=== PATIENT | female | born 1950 | race Caucasian/White ===

== ENCOUNTER 2025-01-10 13:24 | Outpatient (AMB) | payer MEDICARE, OTHER, SELFPAY ==
--- NOTE | 2025-01-10 13:26 | A.OFFVIS_ITS ---
Vital Signs 01/10/25 13:33 Height 5 ft Weight 210 lb BMI 41.0 BP 150/70 H Blood Pressure Location Rt brachial Position Sitting Pulse 63 Pulse Source Pulse Oximeter Pulse Oximetry (%) 92 Oxygen Delivery Method Room Air Intake Visit Reasons: Follow up Intake Note: Patient presents follow up. Last seen PNS Salesforce Administrator Required: No Accompanied by: Self / Same As Patient Medication List - Last Reconciled 01/10/25 by DESTINI Garcia allopurinol 100 mg PO DAILY amlodipine 10 mg PO DAILY cyclobenzaprine 10 mg PO BEDTIME gabapentin 300 mg PO BID memantine 5 mg PO BID 30 days omeprazole 20 mg PO DAILY pravastatin 20 mg PO BEDTIME HPI Comments Details: Right-handed 74-yr-old female presents to [facility] care for cognitive impairment. Patient was last seen in 2020. She states she had a fall last year, going down her stairs- states her neuropathy causes her to not feel her legs at times so she fell. The fall caused an internal hemorrhage and rectal bleed. She was admitted to [facility] x's 1 week. She did have a colonoscopy in Sep 2024- states results were reassuring. Review of labs through [facility] showed anemia and chronic kidney disease c/w CKD stage 4. She is followed by Nephrology. Recent bilateral lower extremity arterial vascular study shows impaired arterial blood flow. Patient states she is supposed to have follow-up ankle imaging and referral for vascular consult. Notes since the fall, is more prone to her feet turning out and having more difficulty lifting her feet up. She has been using a walker since, to help with her balance. Her balance is worse closes her eyes. She states she does have restlessness when inactive and creepy crawly sensation at rest She states that Dr. Casper used to manage her neuropathy. He had previously done a BLE nerve conduction study- order this was years ago and she does not recall the results. She asked if we also treat neuropathy symptoms. Pt reports her memory seems a bit worse. She may forget where she just put something or what she just doing. She also has some word finding difficulties- which sometimes comes to her later. She is Ind w/ paying her bills. Her does the cooking- since the fall last year. Denies repeating herself, leaving the stove on. She continues on memantine 5mg qd- states she tried to increase to 5mg bid but caused nausea so reduced the dose back to 5mg qd. [facility] Medical History (Updated 01/10/25 @ 17:30 by DESTINI Garcia) History of sigmoidoscopy Acute drug-induced gout of right foot Surgical History (Updated 01/10/25 @ 17:30 by DESTINI Garcia) History of colonoscopy History of hysterectomy History of appendectomy Physical Exam Vital Signs: Last Vital Signs Pulse 63 01/10/25 13:33 BP 150/70 H 01/10/25 13:33 Pulse Ox 92 01/10/25 13:33 Oxygen Delivery Method Room Air 01/10/25 13:33 BMI result Body Mass Index 41.0 Const General: cooperative and no acute distress Resp Effort & Inspection: normal respiratory effort and able to speak in complete sentences Neuro Other: Alert and oriented x3- occasional short-term memory lapse. Bilateral lower extremity decreased light touch sensation. Bilateral lower extremity hip flexor muscle strength 5/5 Stand slowly, very short tentative steps without walker. Gait is improved upon using walker. General: CN's II-XI intact bilaterally and deep tendon reflexes 2+ bilaterally Gait exam (Neuro): Normal gait present Psych Appearance: grossly normal Mental Status: mental status grossly normal Speech and movement: Normal speech and movement present Affect: normal affect Attitude: cooperative Thought process: Normal thought process present Results Reviewed Results Reviewed: RESULT: MRI Lumbar Spine W/O Contrast [facility] VISIT NUMBER :[id number] Patient Name: Lincoln Coffey Date of : 1950 Date of Exam: 09-28-2024 Referring Physician: Serena Barrera [address] [address] Exam: MR Lumbar Spine (C-) CPT 32007 Room Description: [facility] 1.5 MRI of the lumbar spine without contrast. HISTORY: Low back pain. Bilateral leg numbness and pain. COMPARISON: 06/07/2023. FINDINGS: This study assumes 5 nonrib-bearing lumbar-type vertebral bodies. The conus medullaris has a normal caliber and signal intensities. It terminates at L1 level. The alignment of lumbar spine is normal. No fracture or subluxation. An incidental hemangioma is seen in the right-sided T12 vertebral body. The bone marrow signals are within normal limits. 8mm hypointense T1 and T2 signal within the sacrum at S1 level is again seen, unchanged. This could represent a bone island as described previously. Mild marginal osteophytes are seen diffusely. Disc desiccation and mild degenerative endplate changes noted at L2-L3 to L5-S1 levels. L3-L4 level has mild disc space narrowing. The paraspinal muscles are within normal limits. T11-T12 through L1-L2 levels have minimal disc bulges. No disc herniation, stenosis or neural foramen narrowing. L2-L3 level has a mild concentric disc bulge with a superimposed small broad-based central disc protrusion. Mild to moderate stenosis. Bilateral ligamentum flavum are mildly hypertrophic. The facet joints are degenerative. Mild bilateral neural foramen narrowing. L3-L4 level has a concentric disc bulge extending to subarticular regions bilaterally, more toward the left. Mild stenosis. Bilateral ligamentum flavum are mildly hypertrophic. There is mild degenerative facet arthropathy bilaterally. Mild to moderate right and moderate left neuroforaminal narrowing. L4-L5 level has a mild concentric disc bulge causing minimal stenosis with the disc abutting bilateral L5 nerve roots. The ligamentum flavum are mildly hypertrophic. The facet joints are degenerative, worse on left. Trace facet e ffusions bilaterally more on left. Mild bilateral neural foramen narrowing. L5- S1 level has a mild disc bulge. No stenosis or nerve root compression. The ligamentum flavum are mildly hypertrophic. The facet joints are mildly degenerative. No neural foramen narrowing. IMPRESSION: Multiple levels of lumbar spondylosis as described above. The findings are similar to prior study. Assessment & Plan Assessment & Plan (1) Cognitive changes: Code(s): R41.89 - Other symptoms and signs involving cognitive functions and awareness Category: Medical (2) Anemia: Code(s): D64.9 - Anemia, unspecified Category: Medical (3) Bilateral lower extremity edema: Code(s): R60.0 - Localized edema Category: Medical (4) Lumbar spondylosis: Comment: With multilevel trgo-[id number] central canal stenosis and qjre-tj-vcvxotqe neural foraminal narrowing. Code(s): M47.816 - Spondylosis without myelopathy or radiculopathy, lumbar region Category: Medical (5) Polyneuropathy: Code(s): G62.9 - Polyneuropathy, unspecified Category: Medical Plan Adjust Memantine IR 5mg daily to Memantine ER 7mg daily- if well tolerated after 1-2 months, we will increase to 14 mg ER daily. Check labs for common etiologies of cognitive difficulties and neuropathy symptoms. Concur with vascular workup/consult. Continue to use walker. Patient is not interested in retrying PT at this time. Future considerations: Follow-up BLE EMG/NCS, brain MRI, revisiting PT. Will follow-up upon review of above and patient to follow-up in clinic in 6 months or sooner prn. Orders: Orders Vitamin B6 Today D64.9 - Anemia, unspecified, E11.9 - Type 2 diabetes mellitus without complications, E78.5 - Hyperlipidemia, unspecified, G62.9 - Polyneuropathy, unspecified, I10 - Essential (primary) hypertension, N18.4 - Chronic kidney disease, stage 4 (severe) Methylmalonic Acid Today D64.9 - Anemia, unspecified, E11.9 - Type 2 diabetes m ellitus without complications, E78.5 - Hyperlipidemia, unspecified, G62.9 - Polyneuropathy, unspecified, I10 - Essential (primary) hypertension, N18.4 - Chronic kidney disease, stage 4 (severe) Complete Blood Count Auto Diff Today D64.9 - Anemia, unspecified, E11.9 - Type 2 diabetes mellitus without complications, E78.5 - Hyperlipidemia, unspecified, G62.9 - Polyneuropathy, unspecified, I10 - Essential (primary) hypertension, N18.4 - Chronic kidney disease, stage 4 (severe) TSH reflex Free T4 Today D64.9 - Anemia, unspecified, E11.9 - Type 2 diabetes mellitus without complications, E78.5 - Hyperlipidemia, unspecified, G62.9 - Polyneuropathy, unspecified, I10 - Essential (primary) hypertension, N18.4 - Chronic kidney disease, stage 4 (severe) LAURA Reflex Titer and Pattern Today D64.9 - Anemia, unspecified, E11.9 - Type 2 diabetes mellitus without complications, E78.5 - Hyperlipidemia, unspecified, G62.9 - Polyneuropathy, unspecified, I10 - Essential (primary) hypertension, N18.4 - Chronic kidney disease, stage 4 (severe) Erythrocyte Sedimentation Rate Today D64.9 - Anemia, unspecified, E11.9 - Type 2 diabetes mellitus without complications, E78.5 - Hyperlipidemia, unspecified, G62.9 - Polyneuropathy, unspecified, I10 - Essential (primary) hypertension, N18.4 - Chronic kidney disease, stage 4 (severe) Ferritin Today D64.9 - Anemia, unspecified, E11.9 - Type 2 diabetes mellitus without complications, E78.5 - Hyperlipidemia, unspecified, G62.9 - Polyneuropathy, unspecified, I10 - Essential (primary) hypertension, N18.4 - Chronic kidney disease, stage 4 (severe) Homocysteine Today D64.9 - Anemia, unspecified, E11.9 - Type 2 diabetes mellitus without complications, E78.5 - Hyperlipidemia, unspecified, G62.9 - Polyneuropathy, unspecified, I10 - Essential (primary) hypertension, N18.4 - Chronic kidney disease, stage 4 (severe) Vitamin B12 and Folate Today D64.9 - Anemia, unspecified, E11.9 - Type 2 diabetes mellitus without complications, E78.5 - Hyperlipidemia, unspecified, G62.9 - Polyneuropathy, unspecified, I10 - Essential (primary) hypertension, N18.4 - Chronic kidney disease, stage 4 (severe) Folate Today D64.9 - Anemia, unspecified, E11.9 - Type 2 diabetes mellitus without complications, E78.5 - Hyperlipidemia, unspecified, G62.9 - Polyneuropathy, unspecified, I10 - Essential (primary) hypertension, N18.4 - Chronic kidney disease, stage 4 (severe) Vitamin B1 Today D64.9 - Anemia, unspecified, E11.9 - Type 2 diabetes mellitus without complications, E78.5 - Hyperlipidemia, unspecified, G62.9 - Polyneuropathy, unspecified, I10 - Essential (primary) hypertension, N18.4 - Chronic kidney disease, stage 4 (severe) Comprehensive Met. Panel Today D64.9 - Anemia, unspecified, E11.9 - Type 2 di abetes mellitus without complications, E78.5 - Hyperlipidemia, unspecified, G62.9 - Polyneuropathy, unspecified, I10 - Essential (primary) hypertension, N18.4 - Chronic kidney disease, stage 4 (severe) Vitamin D 25-OH (D2 and D3) Today D64.9 - Anemia, unspecified, E11.9 - Type 2 diabetes mellitus without complications, E78.5 - Hyperlipidemia, unspecified, G62.9 - Polyneuropathy, unspecified, I10 - Essential (primary) hypertension, N18.4 - Chronic kidney disease, stage 4 (severe) Lyme IgG/IgM w/reflex to WB Today D64.9 - Anemia, unspecified, E11.9 - Type 2 diabetes mellitus without complications, E78.5 - Hyperlipidemia, unspecified, G62.9 - Polyneuropathy, unspecified, I10 - Essential (primary) hypertension, N18.4 - Chronic kidney disease, stage 4 (severe) Rheumatoid Factor Today D64.9 - Anemia, unspecified, E11.9 - Type 2 diabetes mellitus without complications, E78.5 - Hyperlipidemia, unspecified, G62.9 - Polyneuropathy, unspecified, I10 - Essential (primary) hypertension, N18.4 - Chronic kidney disease, stage 4 (severe) Creatine Kinase Total Today D64.9 - Anemia, unspecified, E11.9 - Type 2 diabetes mellitus without complications, E78.5 - Hyperlipidemia, unspecified, G62.9 - Polyneuropathy, unspecified, I10 - Essential (primary) hypertension, N18.4 - Chronic kidney disease, stage 4 (severe) IRON PROFILE Today D64.9 - Anemia, unspecified, E11.9 - Type 2 diabetes mellitus without complications, E78.5 - Hyperlipidemia, unspecified, G62.9 - Po lyneuropathy, unspecified, I10 - Essential (primary) hypertension, N18.4 - Chronic kidney disease, stage 4 (severe) Medications: New memantine 7 mg PO DAILY 30 ea 0RF 30 days Coding Level of Care Code New Pt Level 4 (44290) Diagnoses Cognitive changes R41.89 Anemia D64.9 Bilateral lower extremity edema R60.0 Lumbar spondylosis M47.816 Polyneuropathy G62.9
[2025-01-10 13:33] VITALS: BP 150/70; PULSE 63; O2SAT 92; BMI 41.0
--- OUTSIDE RECORDS SUMMARY | 2025-01-10 15:45 | XMS_ITS | Encounter Summary ---
Author Organization [facility] Address [address] [place] [address] Care Team Providers Care Sales And Retail Management Recruiter Name Role Phone Betzy Duarte MD Primary Care Provider [phone] Edouard Mccracken MD Primary Care Provider Unavailabl e Edouard Mccracken MD Unavailable Unavailable Edouard Mccracken MD Unavailable Unavailable Reason for Visit * Reason Comments E-prescribe Rx Request Omeprazole Encounter Details Date Type Department Care Team Description 10/06/2019 Refill Internal Medicine - [address], [address] [place] [address] Betzy Duarte MD [address] [place] [phone] E-prescribe Rx Request (Omeprazole) Social History Tobacco Use Types Packs/Day Years Used Date Smoking Tobacco: Former Smokeless Tobacco: Never Comments:quit 2004 Alcohol Use Standard Drinks/Week Comments Yes 0 (1 standard drink = 0.6 oz pur e alcohol) occas Sex Assigned at Date Recorded Not on file documented as of this encounter Miscellaneous Notes * Telephone Encounter - Yumiko Lay - 10/07/2019 9:32 AM EST Patient would like script to be: E-PRESCRIBED/FAXED TO PHARMACY WHEN WAS THE PATIENT'S LAST APPOINTMENT IN ADULT MEDICINE? 03/05/2019 WHEN WAS THE LAST TIME THE PATIENT SAW THEIR PCP? Same as above Does patient have an upcoming appointment? Yes 10/25/2019 (THE MEDICATION REQUESTED IS ON THE MED LIST ABOVE) All of the medications requested were on the CURRENT MEDS list Did you check the Pharmacy information above?: YES Patient wants: 30 -day supply Is this a mail order prescription request ? NO If the refill is from a FAXED refill request what is the RX # listed on the fax? N/A Patients current insurance carrier is: Payor: [employer] / Plan: [employer] / Product Type: MEDICARE [id number] documented in this encounter Plan of Treatment Not on file documented as of this encounter Visit Diagnoses Not on filedocumented in this encounter Care Teams Sales And Retail Management Recruiter Relationship Specialty Start Date End Date Betzy Duarte MD PCP - General Internal Medicine 02/22/19 10/13/21 Edouard Mccracken MD PCP - General 10/14/21 11/14/21 Edouard Mccracken MD 12/11/15 10/13/21 Edouard Mccracken MD 11/15/21 documented as of this encounter
--- OUTSIDE RECORDS SUMMARY | 2025-01-10 15:45 | XMS_ITS | Encounter Summary ---
Author Organization [facility] Address [address] [place] [address] Care Team Providers Care Licensed Master Social Worker Name Role Phone Betzy Duarte MD Primary Care Provider [phone]- [phone] Edouard Mccracken MD Primary Care Provider Unavailabl e Edouard Mccracken MD Unavailable Unavailable Edouard Mccracken MD Unavailable Unavailable Encounter Details Date Type Department Care Team Description 03/07/2019 Writer Producer Report Medical Records [address] [place] [id number] Gabe Woods MD Social History Tobacco Use Types Packs/Day Years Used Date Smoking Tobacco: Former Smokeless Tobacco: Never Comments:quit 2004 Alcohol Use Standard Drinks/Week Comments Yes 0 (1 standard drink = 0.6 oz pur e alcohol) occas Sex Assigned at Date Recorded Not on file documented as of this encounter Plan of Treatment Not on file documented as of this encounter Visit Diagnoses Not on filedocumented in this encounter Care Teams Licensed Master Social Worker Relationship Specialty Start Date End Date Betzy Duarte MD PCP - General Internal Medicine 02/22/19 10/13/21 Edouard Mccracken MD PCP - General 10/14/21 11/14/21 Edouard Mccracken MD 12/11/15 10/13/21 Edouard Mccracken MD 11/15/21 documented as of this encounter
--- OUTSIDE RECORDS SUMMARY | 2025-01-10 15:45 | XMS_ITS | Encounter Summary ---
Author Organization [facility] Address [address] [place] [address] Care Team Providers Care Windshield Technician Name Role Phone Constanza Reyes MD Primary Care Provider Unava Betzy Rose MD Primary Care Provider [phone]- [phone] Edouard Mccracken MD Primary Care Provider Unavailabl e Edouard Mccracken MD Unavailable Unavailable Edouard Mccracken MD Unavailable Unavailable Reason for Visit * Reason Comments E-prescribe Rx Request Encounter Details Date Type Department Care Team Description 10/15/2018 Refill Internal Medicine - [address], [address] [place] [address] Constanza Reyes MD E-prescribe Rx Request Social History Tobacco Use Types Packs/Day Years Used Date Smoking Tobacco: Former Smokeless Tobacco: Never Comments:quit 2004 Alcohol Use Standard Drinks/Week Comments Yes 0 (1 standard drink = 0.6 oz pur e alcohol) occas Sex Assigned at Date Recorded Not on file documented as of this encounter Miscellaneous Notes * Telephone Encounter - Yolanda Jo M.A. - 10/15/2018 11:28 AM EST Last seen 08/10/18 documented in this encounter Plan of Treatment Not on file documented as of this encounter Visit Diagnoses Not on filedocumented in this encounter Care Teams Windshield Technician Relationship Specialty Start Date End Date Constanza Reyes MD PCP - General Internal Medicine 08/25/18 02/21/19 Betzy Duarte MD PCP - General Internal Medicine 02/22/19 10/13/21 Edouard Mccracken MD PCP - General 10/14/21 11/14/21 Edouard Mccracken MD 12/11/15 10/13/21 Edouard Mccracken MD 11/15/21 documented as of this encounter
--- OUTSIDE RECORDS SUMMARY | 2025-01-10 15:45 | XMS_ITS | Encounter Summary ---
Author Organization [employer] [facility] Address [address] [place] [address] Care Team Providers Care Safety Spec Name Role Phone Betzy Duarte MD Primary Care Provider [phone]- [phone] Edouard Mccracken MD Primary Care Provider Unavailabl e Edouard Mccracken MD Unavailable Unavailable Edouard Mccracken MD Unavailable Unavailable Encounter Details Date Type Department Care Team Description 02/23/2019 [facility] [address] [place] [id number] Kayla Steele PA-C Social History Tobacco Use Types Packs/Day Years [...] on filedocumented in this encounter Care Teams Safety Spec Relationship Specialty Start Date End Date Betzy Duarte MD PCP - General Internal Medicine 02/22/19 10/13/21 Edouard Mccracken MD PCP - General 10/14/21 11/14/21 Edouard Mccracken MD 12/11/15 10/13/21 Edouard Mccracken MD 11/15/21 documented as of this encounter
--- OUTSIDE RECORDS SUMMARY | 2025-01-10 15:45 | XMS_ITS | Clinical Summary ---
Author Organization [facility] Address [address] [place] [address] Care Team Providers Care Physical Therapy Manager Name Role Phone Constanza Reyes MD Primary Care Provide r Allergies Active Allergy Reactions Criticality Noted Date Comments Aspirin 02/19/2018 Sulfamethoxazole-Trimethoprim Nausea Only 02/19 Ibuprofen 02/19/2018 Nitrofurantoin Diarrhea 02/19/2018 Fosfomycin Tromethamine (Obsolete) 0 02/19/2018 Morphine 02/19/2018 Penicillins 02/19/2018 Social History Tobacco Use Types Packs/Day Years Used Date Smoking Tobacco: Never Assessed Sex and Gender Information Value Date Recorded Sex Assigned at Not on file Gender Identity Not on file Sexual Orientation Not on file Plan of Treatment Health Maintenance Due Date Last Done Comments Hepatitis C Screening 1950 COVID-19 Vaccine (#1) 06/28/1951 Depression Screening 1964 Preventative Health Evaluation 1970 DTap / Tdap / Td (1 - Tdap) 12/27/1971 Colon Cancer Screening (Colonoscopy) 1997 Breast Cancer Screening (Mammogram) 2002 Shingrix-Zoster Vaccine (1 of 2) 2002 Fall Risk Assessment 2017 Osteoporosis Screening (DEXA Scan) 2017 Pneumococcal Vaccine (1 of 1 - PCV) 2017 Influenza Vaccine (#1) 2024 RSV Adult > 60+ Yrs or Pregn ant (1 - 1-dose 75+ series) 12/27/2027 Hepatitis B Vaccines Aged Out No long er eligible based on patient's age to complete this topic RSV Ped < 20 months Aged Out No longe r eligible based on patient's age to complete this topic Care Teams Physical Therapy Manager Relationship Specialty Start Date End Date Constanza Reyes MD PCP - General Internal Medicine 02/19/18
--- OUTSIDE RECORDS SUMMARY | 2025-01-10 15:45 | XMS_ITS | Encounter Summary ---
Author Organization [facility] Address [address] [place] [address] Care Team Providers Care Drop Pit Worker Name Role Phone Betzy Duarte MD Primary Care Provider [phone]- [phone] Edouard Mccracken MD Primary Care Provider Unavailabl e Edouard Mccracken MD Unavailable Unavailable Edouard Mccracken MD Unavailable Unavailable Reason for Visit * Reason Comments E-prescribe Rx Request Encounter Details Date Type Department Care Team Description 09/13/2021 Refill Internal Medicine - [address], [address] [place] [address] Betzy Duarte MD [address] [place] [phone] E-prescribe Rx Request Social History Tobacco Use Types Packs/Day Years Used Date Smoking Tobacco: Former Smokeless Tobacco: Never Comments:quit 2004 Alcohol Use Standard Drinks/Week Comments Yes 0 (1 standard drink = 0.6 oz pur e alcohol) occas Sex Assigned at Date Recorded Not on file COVID-19 Exposure Response Date Recorded In the last month, have you been in contact with someone who was confirmed or suspected to have Coronavirus / COVID-19? No / Unsure 09/13/2021 12:44 PM EST documented as of this encounter Miscellaneous Notes * Telephone Encounter - Almita Griffith - 09/15/2021 8:49 AM EST BP Readings from Last 3 Encounters: 03/23/21 132/56 10/28/20 126/76 07/01/20 120/70 * Telephone Encounter - Merlin Michelle - 09/14/2021 4:41 PM EST [place] 03/23/21 Nov 09/22/21 90 documented in this encounter Plan of Treatment Not on file documented as of this encounter Visit Diagnoses Not on filedocumented in this encounter Care Teams Drop Pit Worker Relationship Specialty Start Date End Date Betzy Duarte MD PCP - General Internal Medicine 02/22/19 10/13/21 Edouard Mccracken MD PCP - General 10/14/21 11/14/21 Edouard Mccracken MD 12/11/15 10/13/21 Edouard Mccracken MD 11/15/21 documented as of this encounter
--- OUTSIDE RECORDS SUMMARY | 2025-01-10 15:45 | XMS_ITS | Encounter Summary ---
Author Organization [facility] Address [address] [place] [address] Care Team Providers Care Solution Design And Analysis Manager Name Role Phone Community, Pcp Primary Care Provider Constanza Turcios MD Primary Care Provider Unava ilBetzy Thornton MD Primary Care Provider [phone]- [phone] Edouard Mccracken MD Primary Care Provider UnavailEdouard Nick MD Unavailable Unavailable Edouard Mccracken MD Unavailable Unavailable Encounter Details Date Type Department Care Team Description 03/26/2018 Business Doc Medical Records [address] [place] [id number] Abstract, Provider Social History Tobacco Use Types Packs/Day Years [...] on filedocumented in this encounter Care Teams Solution Design And Analysis Manager Relationship Specialty Start Date End Date Community, Pcp PCP - General Internal Medicine 01/23/17 08/24/18 Constanza Reyes MD PCP - General Internal Medicine 08/25/18 02/21/19 Betzy Duarte MD PCP - General Internal Medicine 02/22/19 10/13/21 Edouard Mccracken MD PCP - General 10/14/21 11/14/21 Edouard Mccracken MD 12/11/15 10/13/21 Edouard Mccracken MD 11/15/21 documented as of this encounter
--- OUTSIDE RECORDS SUMMARY | 2025-01-10 15:45 | XMS_ITS | Encounter Summary ---
Author Organization [facility] Address [address] [place] [address] Care Team Providers Care Fruit Grader Name Role Phone Betzy Duarte MD Primary Care Provider +1- [phone] Edouard Mccracken MD Primary Care Provider Unavailabl e Edouard Mccracken MD Unavailable Unavailable Edouard Mccracken MD Unavailable Unavailable Reason for Visit * Reason Comments E-prescribe Rx Request Encounter Details Date Type Department Care Team Description 04/19/2021 Refill Internal Medicine - [address], [address] [place] [address] Betzy Duarte MD [address] [place] [phone] E-prescribe Rx Request Social History Tobacco [...] have Coronavirus / COVID-19? No / Unsure 04/20/2021 9:53 AM EDT documented as of this encounter Miscellaneous Notes * Telephone Encounter - Dana Almita Dilip - 04/20/2021 10:23 AM EDT BP Readings from Last 3 Encounters: 03/23/21 132/56 10/28/20 126/76 07/01/20 120/70 * Telephone Encounter - Latisha Hodges - 04/19/2021 8:54 AM EDT Aury 03/23/21 Nov 09/22/21 documented in this encounter Plan of Treatment Not on file documented as of this encounter Visit Diagnoses Not on filedocumented in this encounter Care Teams Fruit Grader Relationship Specialty Start Date End Date Betzy Duarte MD PCP - General Internal Medicine 02/22/19 10/13/21 Edouard Mccracken MD PCP - General 10/14/21 11/14/21 Edouard Mccracken MD 12/11/15 10/13/21 Edouard Mccracken MD 11/15/21 documented as of this encounter
--- OUTSIDE RECORDS SUMMARY | 2025-01-10 15:45 | XMS_ITS | Encounter Summary ---
Author Organization [facility] Address [address] [place] [address] Care Team Providers Care Sampling Theory Teacher Name Role Phone Betzy Duarte MD Primary Care Provider +1- [phone] Edouard Mccracken MD Primary Care Provider Unavailabl e Edouard Mccracken MD Unavailable Unavailable Edouard Mccracken MD Unavailable Unavailable Reason for Visit * Reason Onset Date Comments refill request 02/22/2019 Encounter Details Date Type Department Care Team Description 02/22/2019 Refill Internal Medicine - [address], [address] [place] [address] Betzy Duarte MD [address] [place] [phone] refill request Social History Tobacco Use Types Packs/Day Years Used Date Smoking Tobacco: Former Smokeless Tobacco: Never Comments:quit 2004 Alcohol Use Standard Drinks/Week Comments Yes 0 (1 standard drink = 0.6 oz pur e alcohol) occas Sex Assigned at Date Recorded Not on file documented as of this encounter Miscellaneous Notes * Telephone Encounter - Rose Daiflynnsagar - 02/22/2019 9:02 AM EDT Patient would like script to be: E-PRESCRIBED/FAXED TO PHARMACY WHEN WAS THE PATIENT'S LAST APPOINTMENT IN ADULT MEDICINE? 10/18/19 w/Dr Reyes WHEN WAS THE LAST TIME THE PATIENT SAW THEIR PCP? Same as above Does patient have an upcoming appointment? Yes 03/05/19 w/Dr Duarte (THE MEDICATION REQUESTED IS ON THE MED LIST ABOVE) All of the medications requested were on the CURRENT MEDS list Did you check the Pharmacy information above?: YES Patient wants: 90 -day supply Is this a mail order prescription request ? NO If the refill is from a FAXED refill request what is the RX # listed on the fax? N/A Patients current insurance carrier is: Payor: MEDICARE-[employer] / Plan: MEDICARE-[place] / Product Type: MEDICARE [id number] documented in this encounter Plan of Treatment Not on file documented as of this encounter Visit Diagnoses Not on filedocumented in this encounter Care Teams Sampling Theory Teacher Relationship Specialty Start Date End Date Betzy Duarte MD PCP - General Internal Medicine 02/22/19 10/13/21 Edouard Mccracken MD PCP - General 10/14/21 11/14/21 Edouard Mccracken MD 12/11/15 10/13/21 Edouard Mccracken MD 11/15/21 documented as of this encounter
--- OUTSIDE RECORDS SUMMARY | 2025-01-10 15:45 | XMS_ITS | Encounter Summary ---
Author Organization [facility] Address [address] [place] [address] Care Team Providers Care Technical Training Instructor Name Role Phone Betzy Duarte MD Primary Care Provider +1- [phone] Edouard Mccracken MD Primary Care Provider Unavailabl e Edouard Mccracken MD Unavailable Unavailable Edouard Mccracken MD Unavailable Unavailable Reason for Visit * Reason Comments E-prescribe Rx Request Encounter Details Date Type Department Care Team Description 09/05/2019 Refill Internal Medicine - [address], [address] [place] [address] Betzy Duarte MD [address] [place] [phone] E-prescribe Rx Request Social History Tobacco Use Types Packs/Day Years Used Date Smoking Tobacco: Former Smokeless Tobacco: Never Comments:quit 2004 Alcohol Use Standard Drinks/Week Comments Yes 0 (1 standard drink = 0.6 oz pur e alcohol) occas Sex Assigned at Date Recorded Not on file documented as of this encounter Miscellaneous Notes * Telephone Encounter - Lissette Thompson L.P.N. - 09/06/2019 2:23 PM EST Refill coumadin Last OV Dr Duarte 03/05/[address] Duarte 10/25/2019 Lab Results Component Value Date INR 2.86 09/02/2019 * Telephone Encounter - Margaux Vasquez - 09/05/2019 11:32 AM EST Patient would like script to be: E-PRESCRIBED/FAXED TO PHARMACY WHEN WAS THE PATIENT'S LAST APPOINTMENT IN ADULT MEDICINE? 03/05/19 WHEN WAS THE LAST TIME THE PATIENT SAW THEIR PCP? Same as above Does patient have an upcoming appointment? Yes 11/04/2019 (THE MEDICATION REQUESTED IS ON THE MED [...] N/A Patients current insurance carrier is: [place] / [place] / Product Type: MEDICARE [id number] documented in this encounter Plan of Treatment Not on file documented as of this encounter Visit Diagnoses Not on filedocumented in this encounter Care Teams Technical Training Instructor Relationship Specialty Start Date End Date Betzy Duarte MD PCP - General Internal Medicine 02/22/19 10/13/21 Edouard Mccracken MD PCP - General 10/14/21 11/14/21 Edouard Mccracken MD 12/11/15 10/13/21 Edouard Mccracken MD 11/15/21 documented as of this encounter
--- OUTSIDE RECORDS SUMMARY | 2025-01-10 15:45 | XMS_ITS | Encounter Summary ---
Author Organization [facility] Address [address] [place] [address] Care Team Providers Care Venture Capitalist Name Role Phone Betzy Duarte MD Primary Care Provider +1- [phone] Edouard Mccracken MD Primary Care Provider Unavailabl e Edouard Mccracken MD Unavailable Unavailable Edouard Mccracken MD Unavailable Unavailable Encounter Details Date Type Department Care Team Description 06/14/2021 Telephone [facility] [address] [facility] [address] [place] [address] Poonam Rae, PA-C [address] [facility] [address] [place] [address] Social History Tobacco Use Types Packs/Day Years [...] have Coronavirus / COVID-19? No / Unsure 06/17/2021 3:14 PM EDT documented as of this encounter Plan of Treatment Not on file documented as of this encounter Visit Diagnoses Not on filedocumented in this encounter Care Teams Venture Capitalist Relationship Specialty Start Date End Date Betzy Duarte MD PCP - General Internal Medicine 02/22/19 10/13/21 Edouard Mccracken MD PCP - General 10/14/21 11/14/21 Edouard Mccracken MD 12/11/15 10/13/21 Edouard Mccracken MD 11/15/21 documented as of this encounter
--- OUTSIDE RECORDS SUMMARY | 2025-01-10 15:45 | XMS_ITS | Encounter Summary ---
Author Organization [facility] Address [address] [facility] [address] [facility] [address] [place] [address] Phone Care Team Providers Care Terminal Press Operator Name Role Phone Rocio Lenz Primary Care Provider +1- [phone] Reason for Visit * Reason Comments Med Refill Encounter Details Date Type Department Care Team (Late st Contact Info) Description 12/31/2024 Refill [facility] [address] [place] [id number] Gabe Woods MD [address] [address] Social History Tobacco Use Types Packs/Day Years Used Date Smoking Tobacco: Former Smokeless Tobacco: Former Alcohol Use Standard Drinks/Week Comments Yes 0 (1 standard drink = 0.6 oz pure alcohol) Alcoholic Drinks/day: Occasional social drink Comments Unknown Sex and Gender Information Value Date Recorded Sex Assigned at Not on file Legal Sex Female 4:59 PM EST Gender Identity Not on file Sexual Orientation Not on file documented as of this encounter Plan of Treatment Upcoming Encounters Date Type Department Care Team (Late st Contact Info) Description 02/27/2025 9:20 AM EDT Office Visit [facility] [address] [address] Gabe Woods MD [address] [address] documented as of this encounter Visit Diagnoses Not on filedocumented in this encounter Care Teams Terminal Press Operator Relationship Specialty Start Date End Date Rocio Lenz [address] [facility] [place] PCP - General Internal Medicine 01/24/22 documented as of this encounter
--- OUTSIDE RECORDS SUMMARY | 2025-01-10 15:45 | XMS_ITS | Encounter Summary ---
Author Organization [facility] Address [address] [place] [address] Care Team Providers Care Licensing Analyst Name Role Phone Betzy Duarte MD Primary Care Provider Edouard Mccracken MD Primary Care Provider Unavailabl e Edouard Mccracken MD Unavailable Unavailable Edouard Mccracken MD Unavailable Unavailable Encounter Details Date Type Department Care Team Description 05/10/2019 Business Doc Medical Records [address] [place] [id number] Abstract, Provider Social History Tobacco Use Types [...] on filedocumented in this encounter Care Teams Licensing Analyst Relationship Specialty Start Date End Date Betzy Duarte MD PCP - General Internal Medicine 02/22/19 10/13/21 Edouard Mccracken MD PCP - General 10/14/21 11/14/21 Edouard Mccracken MD 12/11/15 10/13/21 Edouard Mccracken MD 11/15/21 documented as of this encounter
--- OUTSIDE RECORDS SUMMARY | 2025-01-10 15:45 | XMS_ITS | Encounter Summary ---
Author Organization [facility] Address [address] [place] [address] Care Team Providers Care Health Care Manager Name Role Phone Betzy Duarte MD Primary Care Provider +1- [phone] Edouard Mccracken MD Primary Care Provider Unavailabl e Edouard Mccracken MD Unavailable Unavailable Edouard Mccracken MD Unavailable Unavailable Reason for Visit * Reason Onset Date Comments Faxed Refill 04/15/2019 Omeprazole 20mg Encounter Details Date Type Department Care Team Description 04/15/2019 Refill Internal Medicine - [address], [address] [place] [address] Betzy Duarte MD [address] [place] [phone] Faxed Refill (Omeprazole 20mg) Social History Tobacco Use Types Packs/Day Years Used Date Smoking Tobacco: Former Smokeless Tobacco: Never Comments:quit 2004 Alcohol Use Standard Drinks/Week Comments Yes 0 (1 standard drink = 0.6 oz pur e alcohol) occas Sex Assigned at Date Recorded Not on file documented as of this encounter Miscellaneous Notes * Telephone Encounter - Darling Guzman - 04/15/2019 3:14 PM EDT Patient would like script to be: E-PRESCRIBED/FAXED TO PHARMACY WHEN WAS THE PATIENT'S LAST APPOINTMENT IN ADULT MEDICINE? 03/05/2019 WHEN WAS THE LAST TIME THE PATIENT SAW THEIR PCP? Same as above Does patient have an upcoming appointment? Yes 07/16/2019 (THE MEDICATION REQUESTED IS ON THE MED LIST ABOVE) All of the medications requested were on the CURRENT MEDS list Did you check the Pharmacy information above?: YES Patient wants: 90 -day supply Is this a mail order prescription request ? NO If the refill is from a FAXED refill request what is the RX # listed on the fax? [phone] Patients current insurance carrier is: Payor: MEDICARE-[employer] / [place] / Product Type: MEDICARE [id number] documented in this encounter Plan of Treatment Not on file documented as of this encounter Visit Diagnoses Not on filedocumented in this encounter Care Teams Health Care Manager Relationship Specialty Start Date End Date Betzy Duarte MD PCP - General Internal Medicine 02/22/19 10/13/21 Edouard Mccracken MD PCP - General 10/14/21 11/14/21 Edouard Mccracken MD 12/11/15 10/13/21 Edouard Mccracken MD 11/15/21 documented as of this encounter
--- OUTSIDE RECORDS SUMMARY | 2025-01-10 15:45 | XMS_ITS | Encounter Summary ---
Author Organization [facility] Address [address] [place] [address] Care Team Providers Care Public Health Physician Name Role Phone Betzy Duarte MD Primary Care Provider +1- [phone] Edouard Mccracken MD Primary Care Provider Unavailabl e Edouard Mccracken MD Unavailable Unavailable Edouard Mccracken MD Unavailable Unavailable Encounter Details Date Type Department Care Team Description 09/11/2019 Flask Handler Report Medical Records [address] [place] [address] Estuardo Oconnor MD Social History Tobacco Use Types Packs/Day [...] on filedocumented in this encounter Care Teams Public Health Physician Relationship Specialty Start Date End Date Betzy Duarte MD PCP - General Internal Medicine 02/22/19 10/13/21 Edouard Mccracken MD PCP - General 10/14/21 11/14/21 Edouard Mccracken MD 12/11/15 10/13/21 Edouard Mccracken MD 11/15/21 documented as of this encounter
--- OUTSIDE RECORDS SUMMARY | 2025-01-10 15:45 | XMS_ITS | Encounter Summary ---
Author Organization [facility] Address [address] [place] [address] Care Team Providers Care Supplemental Manager Name Role Phone Betzy Duarte MD Primary Care Provider +1- [phone] Edouard Mccracken MD Primary Care Provider Unavailabl e Edouard Mccracken MD Unavailable Unavailable Edouard Mccracken MD Unavailable Unavailable Encounter Details Date Type Department Care Team Description 02/23/2019 [facility] Medical Records [address] [place] [address] Usha Lilly MD Social History Tobacco Use Types Packs/Day [...] on filedocumented in this encounter Care Teams Supplemental Manager Relationship Specialty Start Date End Date Betzy Duarte MD PCP - General Internal Medicine 02/22/19 10/13/21 Edouard Mccracken MD PCP - General 10/14/21 11/14/21 Edouard Mccracken MD 12/11/15 10/13/21 Edouard Mccracken MD 11/15/21 documented as of this encounter
--- OUTSIDE RECORDS SUMMARY | 2025-01-10 15:45 | XMS_ITS | Data Portability ---
Author Organization [facility] [address] Address [address] [place] [address] Assessment Encounter Date Assessment Date Assessment LastModified by Organization Details LastModified Time 12/08/2023 12/08/2023 Patient was evaluated by the Physician Garden Machinery Mechanic using AV technology. This type of exam does not replace a need for an in-person evaluation if symptoms worsen or do not improve after 24-48 hours. [email or web address] Not available 12/08/2023 14:50:47 Plan of Treatment Reminders Order Date Submit Date Provider Last Modified By Organization Details Last Modified Time Details Appointments None recorded. Lab None recorded. Referral None recorded. Procedures None recorded. Surgeries None recorded. Imaging None recorded. Medication Orders cyclobenzap rine 10 mg tablet 2023 024 [facility] [address], [address] [place] [address], [address], 14:52:24 Patient TargetsNo targets recorded. Patient InstructionsNo instructions recorded. Reason for Referral None Reported. Problems Name Problem SNOMED Code Status Onset Date Resolution Date Notes Provider Name and Address Organization Details Recorded Time Hyperlipidemia 61548555 Active 2023 [place] Braga [address] [place], [address], [place] - [facility] 4 14:48:05 Hypertensive disorder 68234135 Active 2023 [place] Braga [address] [place], [address], [place] - [facility] 4 14:48:11 Gastroesophage al reflux disease 293583808 Active 2023 [place], [address], [place] - [facility] 4 14:48:16 Gout 93115228 Active 2023 LA Braga Ignacio Wiley , [place], [address], [place] - [facility] 4 14:48:37 Embolism 964488431 Active 2023 LA Braga Ignacio Wiley , [place], [address], [place] - [facility] 4 14:48:58 Problem Notes None recorded. Procedures Surgical History Date Name Laterality Status Provider Name and Address Organization Details Recorded Time 4 Virtual Visit completed LA Braga Ignacio Wiley, [place], [address], [facility] - [facility] 12/08/2023 14:56:19 Imaging Results None recorded. Procedure Notes None recorded. Medical Equipment None Reported. Allergies Allergen ID Allergen Name Allergen Category Reaction Reaction Severity Criticality Documentation Date Start Date Code Code System Note Provider Name and Address Organization Details Recorded Time 583327 Product containin g penicilli n (product) medicatio n Not available Not available Not available 12/08/2023 91683 8001 SNOMED [place], [address], [place] - [facility] 4 14:46:53 060954 Non-stero idal anti-infl ammatory agent (product) medicatio n Not available Not available Not available 12/08/2023 57951 005 [place], [address], [place] - [facility] 4 14:46:59 Medications Name Sig Start Date Stop Date Status Note LastModified by Organization Details LastModified Time cyclobenzaprine 10 mg tablet Take 1 tablet 3 times a day by oral route as needed for 5 days. 2023 active Not Available Not Available Not Avai lable omeprazole active Not Available Not Av ailable Not Available warfarin active Not Available Not Avai lable Not Available torsemide active Not Available Not Adina ilable Not Available amlodipine active Not Available Not Av ailable Not Available pravastatin active Not Available Not A vailable Not Available allopurinol active Not Available Not A vailable Not Available Vitals None Recorded Social History None recorded. Functional Status None recorded. Mental Status None recorded. Family History Nothing Reported. Medical History No medical history recorded. Gynecological HistoryNo gynecological history recorded. Obstetrics History GPAL:G 0 P 0 0 0 0 Immunizations Vaccine Type Date Status Note Provider Nam e and Address Organization Details Recorded Time COVID-19, mRNA, LNP-S, PF, 30 mcg/0.3 mL dose 1 [place], [address], [place] - [facility] 12/08/2023 14:46:35 COVID-19, mRNA, LNP-S, PF, 30 mcg/0.3 mL dose 1 completed [facility] [place], [address], [place] - [facility] 12/08/2023 14:46:35 COVID-19, mRNA, LNP-S, PF, 30 mcg/0.3 mL dose 1 completed [facility] [place], [address], [place] - [facility] 12/08/2023 14:46:35 COVID-19, mRNA, LNP-S, PF, 30 mcg/0.3 mL dose, vika-sucrose 2 completed LA [place], [address], [place] - [facility] 12/08/2023 14:46:35 COVID-19, mRNA, LNP-S, bivalent, PF, 30 mcg/0.3 mL dose 3 completed LA Braga [address], [place], [address], [place] - [facility] 12/08/2023 14:46:35 pneumococcal polysaccharide PPV23 3 completed LA Braga [address], [place], [address], [place] - [facility] 12/08/2023 14:46:35 pneumococcal polysaccharide PPV23 7 completed LA Braga [address], [place], [address], [place] - [facility] 12/08/2023 14:46:35 tetanus toxoid, unspecified formulation 6 completed LA Braga [address], [place], [address], [place] - [facility] 12/08/2023 14:46:35 Tdap 6 completed LA Braga [address], [place], [address], [place] - [facility] 12/08/2023 14:46:35 Pneumococcal conjugate PCV 13 6 completed LA Braga [address], [place], [address], [place] - [facility] 12/08/2023 14:46:35 Past Encounters Encounter ID Performer Location Encounter Start Date Encounter Closed Date Diagnosis/Indication Diagnosis SNOMED-CT Code Diagnosis ICD10 Code Diagnosis Note [id number] [place] [facility] [address] [place] [address] 12/08/2023 14:35:22 12/08/2023 14:57:03 Muscle spasm of cervical muscle of neck 1780075374 04 M62.838 Take muscle relaxer as directed. Do not drive or operate heavy machinery on this medication .Take naproxen as directed. Do not take other NSAIDs while taking this medication .Keep well hydrated.M ay use over the counter tylenol as directed as needed.Res t and ice to affected area (10-15 minutes on and 20 minutes off and then take a break as discussed. Have a protective barrier between ice and skin).Perf orm gentle range of motion exercises as discussed. Avoid heavy lifting, pushing, pulling, etc for 5-7 days and then increase activity as tolerated. Follow up with PCP in one week or sooner if needed.If symptoms worsen, go to the ER as discussed. Worsening symptoms include but are not limited to, numbness or tingling in the arms or legs, visual changes, or worsening pain. Health Concerns Section Related Observation LastModified by Organization Detai ls LastModified Time None Recorded Concern Status LastModified by Organization Details LastModified Time None Recorded Advance Directives Directive None Recorded Payers Encounter Date Sequence Insurance Name Policy Number Policy Fuller Covered Member ID Fuller Member ID Guarantor Name 12/08/2023 1 [place] [employer] Cielito Coffey [id number] Cielito Coffey 12/08/2023 2 [facility] [id number] 1 Cielito Coffey [id number] Cielito Coffey Notes Date Note Type Note Provider Name and Address Organization Details Recorded Time 12/08/2023 text/html Verified the Patient's Name and at the start of visit.Audio/Visual Technology was used and functioning properly.Patient (and Guardian) - verbally understands limitations of a medical exam using A/V Technology - understands alternative treatment would be to visit an on-site medical facility.The patient did confirm they are physically located in the state that I hold a valid medical license. 72 y/o female with neck pain and spasms for the past 3 days. Using hot water bottle with some relief. Has had this in the past, many years ago. No h/o injury, no radiculopathy [place] [facility] [address] [place], [address], [place] - [facility] 12/08/2023 14:56:36 OBGyn Episode No OBEpisode recorded.
--- OUTSIDE RECORDS SUMMARY | 2025-01-10 15:45 | XMS_ITS | Encounter Summary ---
Author Organization [facility] Address [address] [place] [address] Care Team Providers Care Fiberglass Roving Winder Name Role Phone Betzy Duarte MD Primary Care Provider +1- [phone] Edouard Mccracken MD Primary Care Provider Unavailabl e Edouard Mccracken MD Unavailable Unavailable Edouard Mccracken MD Unavailable Unavailable Reason for Visit * Reason Comments E-prescribe Rx Request Encounter Details Date Type Department Care Team Description 05/25/2021 Refill Internal Medicine - [address], [address] [place] [address] Betzy Duarte MD [address] [place] [phone] E-prescribe Rx Request Social History Tobacco [...] have Coronavirus / COVID-19? No / Unsure 05/24/2021 12:38 PM EDT documented as of this encounter Miscellaneous Notes * Telephone Encounter - Almita QUEVEDO - 05/27/2021 1:13 PM EDT HELIO 03/23/21 NOV 09/22/21 BP Readings from Last 3 Encounters: 03/23/21 132/56 10/28/20 126/76 07/01/20 120/70 documented in this encounter Plan of Treatment Not on file documented as of this encounter Visit Diagnoses Not on filedocumented in this encounter Care Teams Fiberglass Roving Winder Relationship Specialty Start Date End Date Betzy Duarte MD PCP - General Internal Medicine 02/22/19 10/13/21 Edouard Mccracken MD PCP - General 10/14/21 11/14/21 Edouard Mccracken MD 12/11/15 10/13/21 Edouard Mccrakcen MD 11/15/21 documented as of this encounter
--- OUTSIDE RECORDS SUMMARY | 2025-01-10 15:45 | XMS_ITS | Encounter Summary ---
Author Organization [facility] Address [address] [place] [address] Care Team Providers Care Surveillance Systems Analyst Name Role Phone Betzy Duarte MD Primary Care Provider +1- [phone] Edouard Mccracken MD Primary Care Provider Unavailabl e Edouard Mccracken MD Unavailable Unavailable Edouard Mccracken MD Unavailable Unavailable Encounter Details Date Type Department Care Team Description 02/27/2019 Orders Only Medical Records [address] [place] [id number] Abstract, Provider Social History Tobacco Use Types [...] on filedocumented in this encounter Care Teams Surveillance Systems Analyst Relationship Specialty Start Date End Date Betzy Duarte MD PCP - General Internal Medicine 02/22/19 10/13/21 Edouard Mccracken MD PCP - General 10/14/21 11/14/21 Edouard Mccracken MD 12/11/15 10/13/21 Edouard Mccracken MD 11/15/21 documented as of this encounter
--- OUTSIDE RECORDS SUMMARY | 2025-01-10 15:45 | XMS_ITS | Clinical Summary ---
Author Organization [facility] Address [address] [place] [address] Care Team Providers Care Pot Puller Name Role Phone Constanza Reyes MD Primary Care Provider Immunizations Name Administration Dates Next Due Pfizer SARS-CoV-2 COVID-19, mRNA, LNP-S, preservative free 08/04/2021,12/04/2020,11/13/2020 Surgical History Surgery Date Site/Laterality Comments APPENDECTOMY PROCEDURE: HISTORICAL APPENDECTOMY OTHER SURGICAL HISTORY PROCEDURE: HISTORICAL COLOSTOMY OTHER SURGICAL HISTORY PROCEDURE: [place] REVJ COLOSTOMY SMPL RLS SUPFC SCAR SPX; COMMENT: reversal OTHER SURGICAL HISTORY PROCEDURE: VENA CAVA FILTER Medical History Medical History Date Comments Peripheral polyneuropathy 12/19/2017 DX:Per ipheral polyneuropathy Acquired lactose intolerance 08/26/2015 DX: Acquired lactose intolerance Anemia due to chronic illness 02/20/2018 DX :Anemia due to chronic illness Asthma 09/19/2017 DX:Asthma Carpal tunnel syndrome 09/02/2014 DX:Carpal tunnel syndrome Coagulopathy ([facility]/HCC) 08/14/2017 DX:Coagul opathy ([facility]) Depression 07/09/2018 DX:Depression Factor V Leiden ([facility]/HCC) 10/01/2018 DX:Fac tor V Leiden ([facility]); COMMENT: IVC filter Fibromyalgia 09/19/2017 DX:Fibromyalgia GERD (gastroesophageal reflux disease) 6 DX:GERD (gastroesophageal reflux disease) Hearing impairment 02/20/2018 DX:Hearing im pairment History of cervical cancer 12/19/2017 DX:Hi story of cervical cancer History of DVT (deep vein thrombosis) 10/01/2018 DX:History of DVT (deep vein thrombosis); COMMENT: 2011-chronic anticoagulation d/t Factor V Leiden; IVC filter placed. Hyperparathyroidism due to v itamin D deficiency ([facility]) 10/01/2018 DX:Hyperparathyroidism due t o vitamin D deficiency ([facility]) Hypertension 05/02/2017 DX:Hypertension Insomnia 10/11/2016 DX:Insomnia Kidney disease, chronic, sta ge IV (severe, EGFR 15-29 ml/min) ([facility]) 05/02/2017 DX:Kidney diseas e, chronic, stage IV (severe, EGFR 15-29 ml/min) ([facility]) Mild cognitive impairment 09/19/2017 DX:Mil d cognitive impairment Type 2 diabetes mellitus wit h neurological manifestations ([facility]) 10/01/2018 DX:Type 2 diabet es mellitus with neurological manifestations ([facility]) Type 2 diabetes mellitus wit h renal complication ([facility]) 12/25/2017 DX:Type 2 diabetes mellitus with renal complication ([facility]) Varicose veins 07/07/2016 DX:Varicose vein s Vitamin D deficiency 07/07/2016 DX:Vitamin D deficiency Family History Medical History Relation Name Comments Dementia Father hemorrhage Stomach cancer Maternal Grandmother Breast cancer Mother ME Breast cancer Other niece Relation Name Status Comments Father Maternal Grandmother Mother Other niece Alive Social History Tobacco Use Types Packs/Day Years Used Date Smoking Tobacco: Former Smokeless Tobacco: Never Alcohol Use Standard Drinks/Week Comments Yes 0 (1 standard drink = 0.6 oz pur e alcohol) Comments Unknown Sex and Gender Information Value Date Recorded Sex Assigned at Not on file Legal Sex Female 2:15 AM EST Gender Identity Not on file Sexual Orientation Not on file Obstetrics History Last Filed Vital Signs Vital Sign Reading Time Taken Comments Blood Pressure - - Pulse 92 06/15/2022 1:41 PM EDT Temperature - - Respiratory Rate - - Oxygen Saturation - - Inhaled Oxygen Concentration - - Weight 91.2 kg (201 lb) 03/12/2024 8:54 AM EDT Height 152.4 cm (5') 03/12/2024 8:54 AM EDT Body Mass Index 39.26 03/12/2024 8:54 AM EDT Plan of Treatment Health Maintenance Due Date Last Done Comments Diabetes: Annual GFR (Glomerular Filtration Rate) 1950 Diabetes: Annual Foot Exam 1962 Diabetes: Annual Retina Eye Exam 1962 Zoster Vaccines (1 of 2) 2002 RSV Immunization Patients 60+ Years Old (1 - Risk 60-74 years 1-dose series) 2012 Cholesterol Screening (Lipid Panel) 10/01/2022 Colorectal Cancer Screening: Colonoscopy 10/01/2022 Depression Screening 10/01/2022 Diabetes: Annual Urine Albumin-Creatinine Ratio (uACR) 10/01/2022 Diabetes: Blood Sugar Control Test (HGBA1C) 10/01/2022 Falls Risk Assessment 10/01/2022 Hepatitis C Screening 10/01/2022 Hypertension/CHF/CAD Annual BMP Blood Test 10/01/2022 Social Influencers of Health Screening 10/01/2022 COVID-19 Vaccine ( season) 2024 08/04/2021, 12/04/2020, 11/13/2020 Influenza Vaccine (#1) 2024 Breast Cancer Screening 05/29/2025 05/29/20 23, 05/27/2022, 05/24/2021, Additional history exists DTaP,Tdap,and Td Vaccines (2 - Td or Tdap) 07/07/2026 07/07/2016 Osteoporosis Screening (Bone Density Screening) 04/05/2029 04/05/2019, 04/05/2019 Pneumococcal Vaccine: 50+ Years Completed 01/31/2023, 09/19/2017, 07/07/2016 HIB Vaccines Aged Out No longer eligi ble based on patient's age to complete this topic HPV Vaccines Aged Out No longer eligi ble based on patient's age to complete this topic Hepatitis A Vaccines Aged Out No long er eligible based on patient's age to complete this topic Hepatitis B Vaccines Aged Out No long er eligible based on patient's age to complete this topic IPV Vaccines Aged Out No longer eligi ble based on patient's age to complete this topic MMR Vaccines Aged Out No longer eligi ble based on patient's age to complete this topic Meningococcal ACWY Vaccine Aged Out N o longer eligible based on patient's age to complete this topic Meningococcal B Vacine Aged Out No lo nger eligible based on patient's age to complete this topic RSV Immunization Patients Under 20 months Aged Out No longer eligible based on patient's age to complete this topic Varicella Vaccines Aged Out No longer eligible based on patient's age to complete this topic Procedures Procedure Name Priority Date/Time Associated Diagnosis Comments [facility] SCREENING DIGITAL Routine 05/29/2023 3:47 PM EDT Encounter for screening mammogram for malignant neoplasm of breast [facility] DEXA AXIAL SKELETON Routine 04/05/2019 3:09 PM EDT Other specified disorders of bone density and structure, unspecified site from Last 3 Months or Most Recently Relevant to Health Maintenance Results * [facility] SCREENING DIGITAL (05/29/2023 3:47 PM EDT) Anatomical Region Laterality Modality Mammography 05/29/2023 1:37 PM EDT Narrative 05/29/2023 3:47 PM EDT [facility] Diagnostic Imaging Department [address] [place] [address] Patient: ??MAGNOLIA WILLSON ?/Age/Sex: 1950 - 72 - F Unit#: ??[id number] ? Location/Status: ??SPDIMAM/REG CLI ? Mnemonic/Ordering Site: ??DIGSC/SPMAM Ordering Physician: ??PACHECO SHORE MD [facility] Screening Digital - 05/29/23 - [id number] Report Status:Signed EXAM: [facility] Screening Digital EXAM DATE AND TIME: 05/29/2023 2:00 PM HISTORY: ??Screening. Family history of breast carcinoma including mother at age 75 and maternal aunt. COMPARISON: ??05/27/22, 05/24/21, 05/20/20 TECHNIQUE: Bilateral digital breast tomosynthesis was performed in the CC and MLO projections. Computer aided detection with ChirpVision 3D 3.1 was employed. TISSUE DENSITY: a. The breasts are almost entirely fatty. FINDINGS: No suspicious masses, grouped microcalcifications, or areas of architectural distortion are seen. Few benign calcifications are scattered bilaterally, unchanged. Vascular calcification is present. The skin is unremarkable. IMPRESSION: Stable mammographic appearance of the breasts. ??No evidence of malignancy is seen. A negative mammogram in the presence of a clinically suspicious palpable abnormality does not preclude the possibility of malignancy or alter the indications for biopsy. BI-RADS: ??Category 2: Benign RECOMMENDATION(S): 1: Routine screening mammogram BILATERAL in 1 year. Dictating Physician: ??ABY SHERMAN MD Electronically Signed by: ??ABY SHERMAN MD Dic Date/Time: ??05/29/23 1546 Sign date/Time: ??05/29/23 1547 Procedure Note Aby Sherman MD - 11/28/2023 [facility] Diagnostic Imaging Department [address] [place], [place] [id number] Patient: LISSETTE WILLSONSTACEY /Age/Sex: 1950 - 72 - F Unit#: [id number] Location/Status: [facility]/REG CLI Mnemonic/Ordering Site: [facility] Ordering Physician: PACHECO SHORE MD [facility] Screening Digital - 05/29/23 - [id number] Report Status:Signed EXAM: [facility] Screening Digital EXAM DATE AND TIME: 05/29/2023 2:00 PM HISTORY: Screening. Family history of breast carcinoma including motherat age 75 and maternal aunt. COMPARISON: 05/27/22, 05/24/21, 05/20/20 TECHNIQUE: Bilateral digital breast tomosynthesis was performed in the CCand MLO projections. Computer aided detection with ChirpVision 3D 3.1was employed. TISSUE DENSITY: a. The breasts are almost entirely fatty. FINDINGS: No suspicious masses, grouped microcalcifications, or areas ofarchitectural distortion are seen. Few benign calcifications are scatteredbilaterally, unchanged. Vascular calcification is present. The skin is unremarkable. IMPRESSION: Stable mammographic appearance of the breasts. No evidence of malignancyis seen. A negative mammogram in the presence of a clinically suspicious palpable abnormality does not preclude the possibility of malignancy or alter the indications for biopsy. BI-RADS: Category 2: Benign RECOMMENDATION(S): 1: Routine screening mammogram BILATERAL in 1 year. Dictating Physician: ABY SHERMAN MD Electronically Signed by: ABY SHERMAN MD Dic Date/Time: 05/29/23 1546 Sign date/Time: 05/29/23 1547 us Pacheco Prakash MD IMG BI PROCEDURES Final Result * [facility] DEXA AXIAL SKELETON (04/05/2019 3:09 PM EDT) Anatomical Region Laterality Modality Mammography 04/05/2019 1:53 PM EDT Narrative 04/05/2019 3:09 PM EDT [facility] Diagnostic Imaging Department [address] [place] [address] Patient: ??MAGNOLIA WILLSON ?/Age/Sex: 1950 - 68 - F Unit#: ??[id number] ? Location/Status: ??SPDIMAM/REG CLI ? Mnemonic/Ordering Site: ??MAMDEXAAX/SPMAM Ordering Physician: ??GABE Woods MD [facility] Dexa Axial Skeleton - 04/05/19 - 145 HISTORY: ??The patient is a 68-year-old postmenopausal female with hyperparathyroidism and clinical concern for metabolic bone disease. FINDINGS: ??Dual energy x-ray absorptiometry of the lumbar spine and femurs is performed. The mean bone mineral density at L1-2 is 1.012 gm/cm2 which is 87% of that of young normals and 94% of that of age matched controls. This yields a T- score of -1.3 and a Z-score of -0.5 which is diagnostic of osteopenia. The mean bone mineral density of the femurs bilaterally is 1.038 gm/cm2 which is 103% of that of young normals and 112% of that of age matched controls. ??This yields a T-score of 0.2 and a Z-score of 0.9 and there is therefore no evidence of osteoporosis or osteopenia here. However, the T-score of the left femoral neck is -1.1 which is diagnostic of osteopenia. IMPRESSION: 1. Osteopenia. ??There has been a decrease of 2.8% in bone mineral density in the lumbar spine since the prior examination of 11/20/2012. ??There has been an increase of 0.5% in bone mineral density in the right femur and a decrease of 6.2% in bone mineral density in the left femur. 2. FRAX analysis yields a 10-year probability of major osteoporotic fracture of 7.2% and a 10-year probability of hip fracture of 0.3%. Code 80032 Dictating Physician: ??RENETTA CASTORENA MD Electronically Signed by: ??RENETTA CASTORENA MD Dic Date/Time: ??04/05/19 1506 Sign date/Time: ??04/05/19 150 Procedure Note Renetta Castorena - 10/11/2022 [facility] Diagnostic Imaging Department [address] [place] [address] Patient: ANAMIKAMAGNOLIA /Age/Sex: 1950 - 68 - F Unit#: [id number] Location/Status: [facility] Ordering Physician: GABE Woods MD [facility] Dexa Axial Skeleton - 04/05/19 - [id number] HISTORY: The patient is a 68-year-old postmenopausal female with hyperparathyroidism and clinical concern for metabolic bone disease. FINDINGS: Dual energy x-ray absorptiometry of the lumbar spine and femursis performed. The mean bone mineral density at L1-2 is 1.012 gm/cm2 which is87% of that of young normals and 94% of that of age matched controls. This yieldsa T- score of -1.3 and a Z-score of -0.5 which is diagnostic of osteopenia. The mean bone mineral density of the femurs bilaterally is 1.038 gm/jo5swyeg is 103% of that of young normals and 112% of that of age matched controls.This yields a T-score of 0.2 and a Z-score of 0.9 and there is therefore noevidence of osteoporosis or osteopenia here. However, the T-score of the leftfemoral neck is -1.1 which is diagnostic of osteopenia. IMPRESSION: 1. Osteopenia. There has been a decrease of 2.8% in bone mineral densityin the lumbar spine since the prior examination of 11/20/2012. There has beenan increase of 0.5% in bone mineral density in the right femur and a decreaseof 6.2% in bone mineral density in the left femur. 2. FRAX analysis yields a 10-year probability of major osteoporoticfracture of 7.2% and a 10-year probability of hip fracture of 0.3%. Code 12467 Dictating Physician: RENETTA CASTORENA MD Electronically Signed by: RENETTA CASTORENA MD Dic Date/Time: 04/05/19 1506 Sign date/Time: 04/05/19 1509 us Gabe Woods MD IMG BI PROCEDURES Final Res ult from Last 3 Months or Most Recently Relevant to Health Maintenance Advance Directives Documents on File Type Date Recorded Patient Aircraft Load Controller Expl anation Health Care Decision (hx) 02/22/2019 AD LOPEZ DIRECTIVE Health Care Decision (hx) 02/22/2019 AD LOPEZ DIRECTIVE Health Care Decision (hx) 02/22/2019 AD LOPEZ DIRECTIVE Health Care Decision (hx) 02/22/2019 AD LOPEZ DIRECTIVE Care Teams Pot Puller Relationship Specialty Start Date End Date Constanza Reyes MD PCP - General Internal Medicine 02/19/18
--- OUTSIDE RECORDS SUMMARY | 2025-01-10 15:45 | XMS_ITS | Encounter Summary ---
Author Organization [facility] Address [address] [place] [address] Care Team Providers Care Optical Model Maker And Tester Name Role Phone Constanza Reyes MD Primary Care Provider Unava ilable Betzy Duarte MD Primary Care Provider [phone]- [phone] Edouard Mccracken MD Primary Care Provider Unavailabl e Edouard Mccracken MD Unavailable Unavailable Edouard Mccracken MD Unavailable Unavailable Encounter Details Date Type Department Care Team Description 12/24/2018 Gis Consultant Report Medical Records [address] [place] [address] Estuardo Oconnor MD Social History Tobacco Use [...] on filedocumented in this encounter Care Teams Optical Model Maker And Tester Relationship Specialty Start Date End Date Constanza Reyes MD PCP - General Internal Medicine 08/25/18 02/21/19 Betzy Duarte MD PCP - General Internal Medicine 02/22/19 10/13/21 Edouard Mccracken MD PCP - General 10/14/21 11/14/21 Edouard Mccracken MD 12/11/15 10/13/21 Edouard Mccracken MD 11/15/21 documented as of this encounter
--- OUTSIDE RECORDS SUMMARY | 2025-01-10 15:45 | XMS_ITS | Encounter Summary ---
[facility] Address [address] [place] [address] Care Team Providers Care Forging Roll Operator Name Role Phone Betzy Duarte MD Primary Care Provider [phone]- [phone] Edouard Mccracken MD Primary Care Provider Unavailabl e Edouard Mccracken MD Unavailable Unavailable Edouard Mccracken MD Unavailable Unavailable Reason for Visit * Reason Comments E-prescribe Rx Request Encounter Details Date Type Department Care Team Description 08/31/2020 Refill Internal Medicine - [address], [address] [place] [address] Betzy Duarte MD [address] [place] [phone] E-prescribe Rx Request Social History Tobacco [...] have Coronavirus / COVID-19? No / Unsure 08/12/2020 12:42 PM EDT documented as of this encounter Miscellaneous Notes * Telephone Encounter - Maria Ines Ballard L.P.N. - 09/04/2020 9:01 AM EST Lab Results Component Value Date INR 2.65 08/12/2020 * Telephone Encounter - Merlin Carmonaens - 09/03/2020 2:52 PM EST Aury 07/01/20 Nov 10/28/20 135 documented in this encounter Plan of Treatment Not on file documented as of this encounter Visit Diagnoses Not on filedocumented in this encounter Care Teams Forging Roll Operator Relationship Specialty Start Date End Date Betzy Duarte MD PCP - General Internal Medicine 02/22/19 10/13/21 Edouard Mccracken MD PCP - General 10/14/21 11/14/21 Edouard Mccracken MD 12/11/15 10/13/21 Edouard Mccracken MD 11/15/21 documented as of this encounter
--- OUTSIDE RECORDS SUMMARY | 2025-01-10 15:45 | XMS_ITS | Encounter Summary ---
Author Organization [facility] Address [address] [place] [address] Care Team Providers Care Casino Games Dealer Name Role Phone Betzy Duarte MD Primary Care Provider [phone]- [phone] Edouard Mccracken MD Primary Care Provider Unavailabl e Edouard Mccracken MD Unavailable Unavailable Edouard Mccracken MD Unavailable Unavailable Encounter Details Date Type Department Care Team Description 05/03/2021 Cashiers Bussers Food Runners Report Medical Records [address] [place] [address] Audelia Vasquez NP Social History Tobacco Use Types Packs/Day Years [...] have Coronavirus / COVID-19? No / Unsure 05/06/2021 1:34 PM EDT documented as of this encounter Plan of Treatment Not on file documented as of this encounter Visit Diagnoses Not on filedocumented in this encounter Care Teams Casino Games Dealer Relationship Specialty Start Date End Date Betzy Duarte MD PCP - General Internal Medicine 02/22/19 10/13/21 Edouard Mccracken MD PCP - General 10/14/21 11/14/21 Edouard Mccracken MD 12/11/15 10/13/21 Edouard Mccracken MD 11/15/21 documented as of this encounter
--- OUTSIDE RECORDS SUMMARY | 2025-01-10 15:45 | XMS_ITS | Encounter Summary ---
Author Organization [facility] Address [address] [place] [address] Care Team Providers Care Finishing Wire Sawyer Name Role Phone [facility], Pcp Primary Care Provider Constanza Turcios MD Primary Care Provider Yarava Betzy Rose MD Primary Care Provider +1- [phone] Edouard Mccracken MD Primary Care Provider UnavailEdouard Nick MD Unavailable Unavailable Edouard Mccracken MD Unavailable Unavailable Reason for Visit * Reason Onset Date Comments Medication 03/29/2018 Encounter Details Date Type Department Care Team Description 03/29/2018 Telephone Physiatry - [address] [address] Shane Santizo PA-C Medication Social History Tobacco Use Types Packs/Day Years Used Date Smoking Tobacco: Former Smokeless Tobacco: Never Comments:quit 2004 Alcohol Use Standard Drinks/Week Comments Yes 0 (1 standard drink = 0.6 oz pur e alcohol) occas Sex Assigned at Date Recorded Not on file documented as of this encounter Miscellaneous Notes * Telephone Encounter - Debra Griffith - 03/29/2018 2:49 PM EDT Call to patient, who does she get her coumadin from? The patient does not receive all services at [facility]. A note in her chart states Dr Mccracken is her pcp, wrong number in her chart and web search. documented in this encounter Plan of Treatment Not on file documented as of this encounter Visit Diagnoses Not on filedocumented in this encounter Care Teams Finishing Wire Sawyer Relationship Specialty Start Date End Date [facility], Pcp PCP - General Internal Medicine 01/23/17 08/24/18 Constanza Reyes MD PCP - General Internal Medicine 08/25/18 02/21/19 Betzy Duarte MD PCP - General Internal Medicine 02/22/19 10/13/21 Edouard Mccracken MD PCP - General 10/14/21 11/14/21 Edouard Mccracken MD 12/11/15 10/13/21 Edouard Mccracken MD 11/15/21 documented as of this encounter
--- OUTSIDE RECORDS SUMMARY | 2025-01-10 15:45 | XMS_ITS | Clinical Summary ---
Author Organization [facility] Address [address] [place] [phone] Phone Care Team Providers Care Risk Assessment Consultant Name Role Phone Esteban AnguianoaRocio Primary Care Provider +1- [phone] Allergies Active Allergy Reactions Criticality Noted Date Comments Aspirin Other (see comments) 04/22/2021 Codeine Swelling 10/09/2006 Fosfomycin Tromethamine (Obsolete) 02/19/2018 Ibuprofen Other (see comments) 04/22/2021 Morphine Other (see comments) 04/22/2021 Nitrofurantoin Diarrhea 02/19/2018 Penicillin G Other (see comments) 01/20/2022 Penicillin V Other (see comments) 04/22/2021 Sulfamethoxazole-Trimethoprim Nausea Only 02/19 Medications ferrous sulfate 325 (65 Fe) MG tablet Take 1 tablet by mouth 1 (one) time each day 5 Active gabapentin (NEURONTIN) 400 MG capsule Take 100 mg by mouth 1 (one) time each day Five a day Active meclizine (ANTIVERT) 25 MG tablet Take 1 tablet by mouth if needed Active memantine (NAMENDA) 5 MG tablet Take 1 tablet by mouth 1 (one) time each day Active omeprazole OTC (PriLOSEC OTC) 20 MG EC tablet Take 1 tablet by mouth 1 (one) time each day Active warfarin (COUMADIN) 5 MG tablet Take 1 tablet by mouth every other day and 1.5 Active pravastatin (PRAVACHOL) 20 MG tablet Take 1 tablet by mouth once daily 90 tablet 2 Active calcitriol (ROCALTROL) 0.25 MCG capsule Take 1 capsule (0.25 mcg total) by mouth in the morning and 1 capsule (0.25 mcg total) in the evening. 180 capsule 3 4 Active Additional Information Patient taking differently:0.25 mcg OralDaily, Reported on 10/31/2024 amLODIPine (NORVASC) 5 MG tablet Take 1 tablet (5 mg total) by mouth 1 (one) time each day ONCE DAILY FOR 30 DAYS 90 tablet 3 4 02/21/20 25 Active Additional Information Patient taking differently: 10 mgOral Daily, ONCE DAILY FOR 30 DAYS, Reported on 10/31/2024 sertraline (ZOLOFT) 50 MG tablet Take 50 mg by mouth 4 Active spironolactone (Aldactone) 50 MG tablet Take 1 tablet (50 mg total) by mouth 1 (one) time each day 90 tablet 3 4 07/31/20 25 Active allopurinol (ZYLOPRIM) 100 MG tablet Take 2 tablets by mouth once daily 60 tablet 4 Active torsemide (DEMADEX) 20 MG tablet Take 1 tablet (20 mg total) by mouth 1 (one) time each day 90 tablet 3 5 10/31/19 26 Active amLODIPine (NORVASC) 10 MG tablet Take 1 tablet by mouth once daily 90 tablet 5 Active Magnesium Cl-Calcium Carbonate 71.5-119 MG tablet delayed-release Take 1 tablet by mouth in the morning and 1 tablet in the evening. 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 Overview (04/22/2021): On anticoagulation Hypertensive disorder 05/02/2017 Resolved Problems Problem Noted Date Diagnosed Date Resolved Date Gout of ankle and/or foot caused by drug 01/20/2022 01/23/2022 Obese class I 01/20/2022 03/06/2022 Hyperuricemia 04/27/2021 12/09/2021 Factor V Leiden mutation 04/27/2021 Personal history of cervical cancer 04/27/2021 12/09/2021 Recurrent urinary tract infection 04/27/2021 12/09/2021 Labile hypertension due to b eing in a clinical environment 04/27/2021 12/09/2021 Hypomagnesemia 04/27/2021 12/09/2021 Neurogenic dysfunction of urinary bladder 04/27/2021 12/09/2021 Edema 04/22/2021 12/09/2021 Essential hypertension 04/22/202105/08 Deep venous thrombosis 10/01/201803/06 Chronic anemia 02/20/2018 04/27/2021 Chronic anemia 02/20/2018 03/06/2022 Type 2 diabetes mellitus 12/25/2017 Vitamin D deficiency 07/07/2016 022 Encounters Date Type Department Care Team Description 12/31/2024 Refill [facility] [address] [facility] [address] [place] [address] Gabe Woods MD 10/31/2024 9:20 AM EST Office Visit [facility] [address] [phone] Gabe Woods MD Chronic kidney disease stage 4 (HCC) (Primary Dx); Factor V Leiden mutation (HCC); Gout, not otherwise specified; Hypertensive disorder; Iron deficiency anemia, not otherwise specified; Hyperparathyroidism due to renal insufficiency (HCC); 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); Deep venous thrombosis <Unspecified side> (HCC) 10/31/2024 Orders Only [facility] [address] [address] Gabe Woods MD Chronic kidney disease stage 4 (HCC); 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); Factor V Leiden mutation (HCC); Gout, not otherwise specified; Hypertensive disorder; Iron deficiency anemia, not otherwise specified; Anemia in chronic kidney disease 10/12/2024 Refill [facility] [address] [facility] [address] [place] [address] Gabe Woods MD from Last 3 Months Immunizations Name Administration Dates Next Due Pfizer SARS-COV-2 08/04/2021,12/04/2020,11/13/19 21 Pneumococcal Conjugate 13-Valent 07/07/2016 Pneumococcal Polysaccharide 09/19/2017 Tdap 07/07/2016 Tetanus Toxoid, Unspecified 08/22/2006, 6 Family History Medical History Relation Comments Dementia Father Cancer Mother breast cancer Heart disease Mother Hypertension Mother Hypertension Sibling 1 brothers and sis ters Kidney disease Sibling 2 brother Diabetes Sibling 3 brother Heart disease Sibling 4 brother Relation Status Comments Father Mother Sibling 1 Sibling 2 Sibling 3 Sibling 4 Social History Tobacco Use Types Packs/Day Years [...] on file Sexual Orientation Not on file Last Filed Vital Signs Vital Sign Reading Time Taken Comments Blood Pressure 161/92 10/31/2024 9:03 AM EST Pulse 88 10/31/2024 9:03 AM EST Temperature - - Respiratory Rate 20 01/31/2024 12:05 PM EDT Oxygen Saturation 94% 10/31/2024 9:03 AM EST Inhaled Oxygen Concentration - - Weight 90.3 kg (199 lb) 10/31/2024 9:03 AM EST Height 152.4 cm (5') 10/31/2024 9:03 AM EST Body Mass Index 38.86 10/31/2024 9:03 AM EST Plan of Treatment Upcoming Encounters Date Type Department Care Team (Late st Contact Info) Description 02/27/2025 9:20 AM EDT Office Visit [facility] [address] [facility] [address] [place] [address] Gabe Woods MD [address] [facility] [address] [place] [address] Health Maintenance Due Date Last Done Comments Breast Cancer Screening 1952 Colorectal Cancer Screening: Annual FOBT 2001 Colorectal Cancer Screening: Colonoscopy 2001 Colorectal Cancer Screening: Sigmoidoscopy 2001 Influenza Vaccine (#1) 2024 Pneumococcal Vaccine: 65+ Years Completed 01/31/2023, 09/19/2017, 07/07/2016 Hepatitis B Vaccine Aged Out No longe r eligible based on patient's age to complete this topic Procedures Procedure Name Priority Date/Time Associated Diagnosis Comments PTH, INTACT Routine 10/29/2024 2:33 PM EST FERRITIN Routine 10/29/2024 2:33 PM EST MAGNESIUM Routine 10/29/2024 2:33 PM EST PHOSPHATE ( PHOSPHORUS) Routine 10/29/2024 2:33 PM EST URIC ACID Routine 10/29/2024 2:33 PM EST VITAMIN D 25 HYDROXY Routine 10/29/2024 2:33 PM EST PROTEIN / CREATININE RATIO, URINE Routine 10/29/2024 2:33 PM EST IRON PANEL (FE, TIBC, TSAT) Routine 10/29/2024 2:33 PM EST COMPREHENSIVE METABOLIC PANEL Routine 10/29/2024 2:33 PM EST CBC AND DIFFERENTIAL Routine 10/29/2024 2:33 PM EST from Last 3 Months Results * (ABNORMAL) Iron Panel (Fe, TIBC, TSAT) (10/29/2024 2:33 PM EST) TIBC 262 250 - 450 ug/dL [facility] UIBC 229 118 - 369 ug/dL [facility] Iron 33 27 - 139 ug/dL [facility] Iron Saturation (TSat) 13(L) 15 - 55 % [facility] 10/29/2024 2:33 PM EST 10/29/2024 Gabe Woods MD LAB BLOOD ORDERABLES Final Re sult Performing Organization Address [facility] Co de Phone Number [facility] [address] [place] [address] * (ABNORMAL) Protein, Total, Random Urine w/Creatinine (Protein/Creat Ratio) (10/29/2024 2:33 PM EST) Creatinine, Ur 88.6 Not Estab. mg/dL [facility] Protein, Ur 258.0 Not Estab. mg/dL [facility] Comment: Results confirmed on dilution. Urine Protein/Creati nine Ratio 2,912(H) 0 - 200 mg/g creat [facility] 10/29/2024 2:33 PM EST 10/29/2024 Gabe Woods MD LAB URINE ORDERABLES Final Re sult Performing Organization Address [facility] Co de Phone Number [facility] [address] [place] [address] * Vitamin D 25 Hydroxy (10/29/2024 2:33 PM EST) Vitamin D, 25-OH, Total 43.8 30.0 - 100.0 ng/mL [facility] Comment: Vitamin D deficiency has been defined by the [place] of Medicine and an Endocrine Society practice guideline as a level of serum 25-OH vitamin D less than 20 ng/mL (1,2). The Endocrine Society went on to further define vitamin D insufficiency as a level between 21 and 29 ng/mL (2). 1. IOM ([place] of Medicine). 2010. Dietary reference ?? intakes for calcium and D. [place]: The ?? National Academies Press. 2. Dionna MF, Balta AMBRIZ, Ale OCAMPO, et al. ?? Evaluation, treatment, and prevention of vitamin D ?? deficiency: an Endocrine Society clinical practice ?? guideline. JCEM. 2010; 96(7):1911-30. 10/29/2024 2:33 PM EST 10/29/2024 us Gabe Woods MD LAB BLOOD ORDERABLES Final Re sult [facility] [address] [place] [address] * (ABNORMAL) CBC and Differential (10/29/2024 2:33 PM EST) WBC 13.7(H) 3.4 - 10.8 x10E3/uL [facility] RBC 3.84 3.77 - 5.28 x10E6/uL [facility] Hemoglobin 11.4 11.1 - 15.9 g/dL [facility] Hematocrit 36.0 34.0 - 46.6 % [facility] MCV 94 79 - 97 fL [facility] MCH 29.7 26.6 - 33.0 pg [facility] MCHC 31.7 31.5 - 35.7 g/dL [facility] RDW 13.3 11.7 - 15.4 % [facility] Platelets 353 150 - 450 x10E3/uL [facility] Neutrophils Relative 73 Not Estab. % [facility] Lymphocytes Relative 17 Not Estab. % [facility] Monocytes 7 Not Estab. % [facility] Eosinophils Relative 2 Not Estab. % [facility] Basophils Relative 0 Not Estab. % [facility] Neutrophils Absolute 10.2(H) 1.4 - 7.0 x10E3/uL [facility] Lymphocytes Absolute 2.3 0.7 - 3.1 x10E3/uL [facility] Monocytes Absolute 0.9 0.1 - 0.9 x10E3/uL [facility] Eosinophils Absolute 0.2 0.0 - 0.4 x10E3/uL [facility] Basophils Absolute 0.0 0.0 - 0.2 x10E3/uL [facility] Immature Granulocytes 1 Not Estab. % [facility] Immature Grans (Absolute) 0.1 0.0 - 0.1 x10E3/uL [facility] 10/29/2024 2:33 PM EST 10/29/2024 Gabe Woods MD LAB BLOOD ORDERABLES Final Re sult [facility] [address] [place] [address] * Uric Acid (10/29/2024 2:33 PM EST) Uric Acid 7.3 3.1 - 7.9 mg/dL [facility] Comment:Therapeutic target f or gout patients: <6.0 10/29/2024 2:33 PM EST 10/29/2024 Gabe Woods MD LAB BLOOD ORDERABLES Final Re sult [facility] [address] [place] [address] * Phosphorus (10/29/2024 2:33 PM EST) Phosphorus 4.1 3.0 - 4.3 mg/dL [facility] 10/29/2024 2:33 PM EST 10/29/2024 Gabe Woods MD LAB BLOOD ORDERABLES Final Re sult Performing Organization Address [facility] Co de Phone Number [facility] [address] [place] [address] * PTH, Intact (10/29/2024 2:33 PM EST) PTH 26 15 - 65 pg/mL [facility] 10/29/2024 2:33 PM EST 10/29/2024 Gabe Woods MD LAB BLOOD ORDERABLES Final Re sult Performing Organization Address [facility] Co de Phone Number [facility] [address] [place] [address] * (ABNORMAL) Magnesium (10/29/2024 2:33 PM EST) Magnesium 1.5(L) 1.6 - 2.3 mg/dL [facility] 10/29/2024 2:33 PM EST 10/29/2024 us Gabe Woods MD LAB BLOOD ORDERABLES Final Re sult Performing Organization Address City[facility]/ZIP Co de Phone Number [facility] [address] [place] [address] * (ABNORMAL) Ferritin (10/29/2024 2:33 PM EST) Ferritin 381(H) 15 - 150 ng/mL [facility] 10/29/2024 2:33 PM EST 10/29/2024 us Gabe Woods MD LAB BLOOD ORDERABLES Final Re sult [facility] [address] [place] [address] * (ABNORMAL) Comprehensive Metabolic Panel (10/29/2024 2:33 PM EST) Glucose 90 70 - 99 mg/dL [facility] BUN 51(H) 8 - 27 mg/dL [facility] Creatinine 2.28(H) 0.57 - 1.00 mg/dL [facility] eGFR CKD-EPI CR 2020 22(L) >59 mL/min/1.7 3 [facility] BUN/Creatinine Ratio 22 12 - 28 [facility] Sodium 139 134 - 144 mmol/L [facility] Potassium 4.8 3.5 - 5.2 mmol/L [facility] Chloride 101 96 - 106 mmol/L [facility] Bicarbonate (CO2) 19(L) 20 - 29 mmol/L [facility] Calcium 9.8 8.7 - 10.3 mg/dL [facility] Total Protein 7.9 6.0 - 8.5 g/dL [facility] Albumin 4.3 3.8 - 4.8 g/dL [facility] Globulin 3.6 1.5 - 4.5 g/dL [facility] Total Bilirubin 0.2 0.0 - 1.2 mg/dL [facility] Alkaline Phosphatase 72 44 - 121 IU/L [facility] AST (SGOT) 13 0 - 40 IU/L [facility] ALT (SGPT) 10 0 - 32 IU/L [facility] 10/29/2024 2:33 PM EST 10/29/2024 us Gabe Woods MD LAB BLOOD ORDERABLES Final Re sult [facility] [address] [place] [address] from Last 3 Months Insurance MEDICARE [facility] MEDICARE [facility] Care Teams Risk Assessment Consultant Relationship Specialty Start Date End Date Rocio Lenz [address] [facility] P[facility] - General Internal Medicine 01/24/22
--- OUTSIDE RECORDS SUMMARY | 2025-01-10 15:45 | XMS_ITS | Encounter Summary ---
Author Organization [facility] Address [address] [place] [address] Care Team Providers Care Dope Firer Name Role Phone Betzy Duarte MD Primary Care Provider +1- [phone] Edouard Mccracken MD Primary Care Provider Unavailabl e Edouard Mccracken MD Unavailable Unavailable Edouard Mccracken MD Unavailable Unavailable Reason for Visit * Reason Onset Date Comments Pre Op Visit 01/02/2020 Encounter Details Date Type Department Care Team Description 01/02/2020 Telephone Internal Medicine - [address], [address] [place] [address] Betzy Duarte MD [address] [place] [phone] Pre Op Visit Social History Tobacco Use Types Packs/Day Years Used Date Smoking Tobacco: Former Smokeless Tobacco: Never Comments:quit 2004 Alcohol Use Standard Drinks/Week Comments Yes 0 (1 standard drink = 0.6 oz pur e alcohol) occas Sex Assigned at Date Recorded Not on file documented as of this encounter Miscellaneous Notes * Telephone Encounter - Cj Perez - 01/02/2020 12:53 PM EDT Date of surgery:02/25/20 and 03/17/20 What surgery is patient having (gall bladder, cataract, appendix, etc...)?: Bilateral cataract Surgeon's name: Tomer rich Office phone number of surgeon: [phone] Fax # for surgeons office: [phone] (Required) Where is surgery being performed? Surgery center [address] Diagnosis/problem for surgery: Cataract Is an EKG required for the pre-op workup? NO PCP: Betzy Duarte Did you verify that the insurance below is correct? YES Patients insurance: [place] / Plan: MED[place]ARE-[employer] / Product Type: MEDICARE [id number] documented in this encounter Plan of Treatment Not on file documented as of this encounter Visit Diagnoses Not on filedocumented in this encounter Care Teams Dope Firer Relationship Specialty Start Date End Date Betzy Duarte MD PCP - General Internal Medicine 02/22/19 10/13/21 Edouard Mccracken MD PCP - General 10/14/21 11/14/21 Edouard Mccracken MD 12/11/15 10/13/21 Edouard Mccracken MD 11/15/21 documented as of this encounter
--- OUTSIDE RECORDS SUMMARY | 2025-01-10 15:45 | XMS_ITS | Encounter Summary ---
Author Organization [facility] Address [address] [place] [address] Care Team Providers Care Lead Painter Name Role Phone Constanza Reyes MD Primary Care Provider Unava ilable Betzy Duarte MD Primary Care Provider +1- [phone] Edouard Mccracken MD Primary Care Provider Unavailabl e Edouard Mccracken MD Unavailable Unavailable Edouard Mccracken MD Unavailable Unavailable Encounter Details Date Type Department Care Team Description 08/29/2018 [facility] Medical Records [address] [place] [id number] Social History Tobacco Use Types Packs/Day Years [...] on filedocumented in this encounter Care Teams Lead Painter Relationship Specialty Start Date End Date Constanza Reyes MD PCP - General Internal Medicine 08/25/18 02/21/19 Betzy Duarte MD PCP - General Internal Medicine 02/22/19 10/13/21 Edouard Mccracken MD PCP - General 10/14/21 11/14/21 Edouard Mccracken MD 12/11/15 10/13/21 Edouard Mccracken MD 11/15/21 documented as of this encounter
--- OUTSIDE RECORDS SUMMARY | 2025-01-10 15:45 | XMS_ITS | Encounter Summary ---
Author Organization [facility] Address [address] [place] [address] Care Team Providers Care Manager Field Sales Name Role Phone Betzy Duarte MD Primary Care Provider +1- [phone] Edouard Mccracken MD Primary Care Provider Unavailabl e Edouard Mccracken MD Unavailable Unavailable Edouard Mccracken MD Unavailable Unavailable Encounter Details Date Type Department Care Team Description 07/24/2019 Movie Editor Report Medical Records [address] [place] [address] Kayla Steele PA-C Social History Tobacco Use [...] on filedocumented in this encounter Care Teams Manager Field Sales Relationship Specialty Start Date End Date Betzy Duarte MD PCP - General Internal Medicine 02/22/19 10/13/21 Edouard Mccracken MD PCP - General 10/14/21 11/14/21 Edourad Mccracken MD 12/11/15 10/13/21 Edouard Mccracken MD 11/15/21 documented as of this encounter
--- OUTSIDE RECORDS SUMMARY | 2025-01-10 15:45 | XMS_ITS | Encounter Summary ---
Author Organization [facility] Address [address] [place] [address] Care Team Providers Care Box Stamper Name Role Phone Constanza Reyes MD Primary Care Provider Unava ilable Betzy Duarte MD Primary Care Provider +1- [phone] Edouard Mccracken MD Primary Care Provider Unavailabl e Edouard Mccracken MD Unavailable Unavailable Edouard Mccracken MD Unavailable Unavailable Encounter Details Date Type Department Care Team Description 11/28/2018 Infantryman Report Medical Records [address] [place] [address] Carina Flores MD Social History Tobacco Use Types Packs/Day [...] on filedocumented in this encounter Care Teams Box Stamper Relationship Specialty Start Date End Date Constanza Reyes MD PCP - General Internal Medicine 08/25/18 02/21/19 Betzy Duarte MD PCP - General Internal Medicine 02/22/19 10/13/21 Edouard Mccracken MD PCP - General 10/14/21 11/14/21 Edouard Mccracken MD 12/11/15 10/13/21 Edouard Mccracken MD 11/15/21 documented as of this encounter
--- OUTSIDE RECORDS SUMMARY | 2025-01-10 15:45 | XMS_ITS | Encounter Summary ---
Author Organization [facility] Address [address] [place] [address] Care Team Providers Care Distribution Center Administrator Name Role Phone Betzy Duarte MD Primary Care Provider +1- [phone] Edouard Mccracken MD Primary Care Provider Unavailabl e Edouard Mccracken MD Unavailable Unavailable Edouard Mccracken MD Unavailable Unavailable Encounter Details Date Type Department Care Team Description 04/21/2020 Loss Control Consultant Report Medical Records [address] [place] [address] Poonam Rae, PA-C [address] [place] [address] Social History Tobacco Use Types Packs/Day Years [...] on filedocumented in this encounter Care Teams Distribution Center Administrator Relationship Specialty Start Date End Date Betzy Duarte MD PCP - General Internal Medicine 02/22/19 10/13/21 Edouard Mccrackne MD PCP - General 10/14/21 11/14/21 Edouard Mccracken MD 12/11/15 10/13/21 Edouard Mccracken MD 11/15/21 documented as of this encounter
--- OUTSIDE RECORDS SUMMARY | 2025-01-10 15:45 | XMS_ITS | Encounter Summary ---
Author Organization [facility] Address [address] [place] [address] Care Team Providers Care Pest Control Technician Name Role Phone Betzy Duarte MD Primary Care Provider +1- [phone] Edouard Mccracken MD Primary Care Provider Unavailabl e Edouard Mccracken MD Unavailable Unavailable Edouard Mccracken MD Unavailable Unavailable Encounter Details Date Type Department Care Team Description 04/22/2019 Cloud Engagement Partner Report Medical Records [address] [place] [address] Audelia Vasquez NP Social History Tobacco Use [...] on filedocumented in this encounter Care Teams Pest Control Technician Relationship Specialty Start Date End Date Betzy Duarte MD PCP - General Internal Medicine 02/22/19 10/13/21 Edouard Mccracken MD PCP - General 10/14/21 11/14/21 Edouard Mccracken MD 12/11/15 10/13/21 Edouard Mccracken MD 11/15/21 documented as of this encounter
--- OUTSIDE RECORDS SUMMARY | 2025-01-10 15:46 | XMS_ITS | Encounter Summary ---
Author Organization [facility] Address [address] [place] [address] Care Team Providers Care Human Resources Designate Name Role Phone Edouard Mccracken MD Unavailable Unavailable Encounter Details Date Type Department Care Team Description 03/14/2024 [facility] Medical [facility] [address] [facility] [address] [place] [phone] Kim Perdomo NP [facility] [facility] [place] [address] Social History Tobacco Use Types Packs/Day Years [...] on filedocumented in this encounter Care Teams Human Resources Designate Relationship Specialty Start Date End Date Edouard Mccracken MD 11/15/21 documented as of this encounter
--- OUTSIDE RECORDS SUMMARY | 2025-01-10 15:46 | XMS_ITS | Clinical Summary ---
Author Organization [facility] Address [address] [place] [address] Care Team Providers Care Physical Sciences Professor Name Role Phone Edouard Mccracken MD Unavailable Unavailable Allergies Active Allergy Reactions Severity Noted Date Comments Aspirin Swelling/Edema 08/02/2007 Aspirin Nausea and Vomiting 09/22/2009 Codeine Swelling/Edema 10/09/2006 Fosfomycin Tromethamine 02/19/2018 Ibuprofen Nausea and Vomiting 11/01/2010 Morphine Nausea and Vomiting 11/01/2010 Morphine Sulfate hallucinations 06/08/2010 Ibuprofen Micronized Swelling/Edema 10/09/2006 Nitrofurantoin Diarrhea 02/19/2018 Penicillins Swelling/Edema 10/09/2006 Penicillin V Nausea and Vomiting 04/22/2021 Sulfamethoxazole-Trimethoprim Diarrhea 2017 Medications Medication Sig Dispensed Refills Start Date End Date Status ferrous sulfate 325 (65 FE) MG EC tablet Take 325 mg by mouth daily. 0 Active gabapentin (NEURONTIN) 400 MG capsule Take 400 mg by mouth 2 times daily. 0 Active amitriptyline (ELAVIL) 10 MG tablet TAKE 1 TABLET BY MOUTH IN THE EVENING INCREASE BY 1 TABLET BY MOUTH EVERY WEEK IF TOLERATED TO A MAX OF 30MG BY MOUTH IN THE EVENING ( 3 TAB 0 09/23/2020 Active memantine (NAMENDA) 5 MG tablet Take 1 tablet by mouth daily. 0 Active cephALEXin (KEFLEX) 250 MG capsule Take 250 mg by mouth daily. 0 02/06/2021 Active omeprazole (PRILOSEC) 20 MG capsule Take 1 capsule by mouth once daily 90 capsule 0 07/07/2021 Active calcitRIOL (ROCALTROL) 0.25 MCG capsule Take 1 Capsule by mouth. 0 01/08/2024 Active warfarin (COUMADIN) 5 MG tablet Take 1 Tablet by mouth. 0 Active torsemide (DEMADEX) 20 MG tablet Take 3 Tablets by mouth. 0 06/18/2018 Active spironolactone (ALDACTONE) 25 MG tablet Take 2 Tablets by mouth. 0 02/21/2024 02/20/2025 Active pravastatin (PRAVACHOL) 20 MG tablet Take 1 Tablet by mouth daily. 0 12/29/2021 Active Meclizine HCl 25 MG Tab Take 1 Tablet by mouth. 0 Active tizanidine (ZANAFLEX) 2 MG tablet Take 1 Tablet by mouth. 0 02/05/2024 Active sertraline (ZOLOFT) 50 MG tablet Take 1 Tablet by mouth. 0 02/05/2024 Active gabapentin (NEURONTIN) 600 MG tablet 0 03/14/2024 Active Omeprazole Magnesium (PRILOSEC OR) 0 Active amlodipine (NORVASC) 10 MG tablet 0 02/29/2024 Active allopurinol (ZYLOPRIM) 100 MG tablet Take 2 Tablets by mouth. 0 12/25/2023 Active Melatonin 10 MG Tab Take 20 mg by mouth. 0 09/23/2021 Active cyclobenzaprine (FLEXERIL) 10 MG tablet Take 1 Tablet by mouth. 0 12/08/2023 Active diazepam (Valium) 5 MG tablet Take 1 Tablet by mouth. 0 07/19/2023 Active docusate sodium (Colace) 100 MG capsule Take 1 Capsule by mouth. 0 09/27/2022 Active estradiol (ESTRACE VAGINAL) 0.1 MG/GM vaginal cream Place [address] vaginally twice a week 42.5 g 0 12/08/2010 07/07/2022 Discontinued (duplicate entry) Magnesium Cl-Calcium Carbonate 71.5-119 MG Tab EC Take 1 Tablet by mouth. 0 01/08/2024 01/07/2025 Active Problems Problem Noted Date Severe obesity (BMI 35.0-39.9) with jesse rbidity 05/27/2024 Major psychotic depression, recurrent Class 1 obesity 05/27/2024 Acute drug-induced gout of right foot Gait instability 02/06/2024 Primary osteoarthritis of left knee 01/21 Hyperlipidemia 12/08/2023 Rectal polyp 11/10/2022 AIN grade II 11/10/2022 Acute embolism and thrombosi s of unspecified deep veins of unspecified lower extremity 03/06/2022 Gout 01/23/2022 Hyperuricemia 04/27/2021 Hypomagnesemia 04/27/2021 Neurogenic bladder 04/27/2021 Recurrent urinary tract infection 2020 Factor V Leiden mutation 04/27/2021 Personal history of malignant neoplasm o f cervix uteri 04/27/2021 Other secondary hypertension 04/27/2021 Anemia in chronic kidney disease 021 Edema 04/22/2021 Hyperparathyroidism due to renal insuffi ciency 04/22/2021 Iron deficiency anemia 04/22/2021 Essential hypertension 04/22/2021 Stage 4 chronic kidney disease History of DVT (deep vein thrombosis) Overview: 2011-chronic anticoagulation d/t Factor V Leiden; IVC filter placed. 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 10/01/2018 Factor V Leiden 10/01/2018 Overview: IVC filter Hyperparathyroidism due to vitamin D def iciency 10/01/2018 Depression 07/09/2018 Thromboembolism of renal vein 04/17/2018 Overview: On anticoagulation Embolism and thrombosis of renal vein Overview: On anticoagulation Anemia due to chronic illness 02/20/2018 Hearing impairment 02/20/2018 Type 2 diabetes mellitus with renal comp lication 12/25/2017 Type 2 diabetes mellitus 12/25/2017 Peripheral polyneuropathy 12/19/2017 History of cervical cancer 12/19/2017 Asthma 09/19/2017 Fibromyalgia 09/19/2017 Mild cognitive impairment 09/19/2017 Coagulopathy 08/14/2017 Hypertension 05/02/2017 Kidney disease, chronic, stage IV (sever e, EGFR 15-29 ml/min) 05/02/2017 GERD (gastroesophageal reflux disease) 1 12/12/2015 Insomnia 10/11/2016 Varicose veins 07/07/2016 Vitamin D deficiency 07/07/2016 Acquired lactose intolerance 08/26/2015 Carpal tunnel syndrome 09/02/2014 Immunizations Name Administration Dates Next Due Pneumoccoccal(Adult) Polysaccharide PPSV23 09/19 Pneumococcal Conjugate PCV-13 07/07/2016 Tdap 07/07/2016 Tetanus Toxoid 08/22/2006 Family History Medical History Relation Name Comments Dementia Father hemorrhage CA Stomach Maternal Grandmother CA Breast Mother DE CA Breast Other niece Relation Name Status Comments Father Maternal Grandmother Mother Other niece Alive Social History Tobacco Use Types Packs/Day Years Used Date Smoking Tobacco: Former Smokeless Tobacco: Never Tobacco Cessation:Counseling Given: Not Answered Comments:quit 2004 Alcohol Use Standard Drinks/Week Comments Yes 0 (1 standard drink = 0.6 oz pur e alcohol) occas Sex Assigned at Date Recorded Not on file Last Filed Vital Signs Vital Sign Reading Time Taken Comments Blood Pressure 132/56 03/23/2021 3:19 PM EDT Pulse 92 06/15/2022 1:41 PM EDT Temperature 36.5 ??C (97.7 ??F) 06/15/2022 1:41 PM ED T Respiratory Rate 17 01/06/2022 1:46 PM EDT Oxygen Saturation 98% 06/15/2022 1:41 PM EDT Inhaled Oxygen Concentration - - Weight 91.2 kg (201 lb) 03/12/2024 8:54 AM EDT Height 152.4 cm (5') 03/12/2024 8:54 AM EDT Body Mass Index 39.26 03/12/2024 8:54 AM EDT Plan of Treatment Health Maintenance Due Date Last Done Comments DIABETES: ANNUAL EYE EXAM 1970 DIABETES: ANNUAL FOOT EXAM 1970 HEPATITIS C SCREENING 1970 COLON CANCER SCREENING 2002 SHINGLES VACCINE (1 of 2) 2002 DIABETES: BLOOD SUGAR CONTRO L TEST (HGBA1C) 09/29/2020 06/30/2020, 10/28/2019, 11/02/2018, Additional history exists FALL RISK ASSESSMENT 10/25/2020 10/25/2019 BONE DENSITY SCREENING 04/05/2021 9, 08/04/2010, 05/02/2007 DIABETES: ANNUAL URINE PROTE IN TEST (MICROALBUMIN) 06/30/2021 06/30/2020, 11/02/2018 DEPRESSION SCREEN 03/23/2022 03/23/2021 DIABETES/HEART DISEASE: AUDREY SZYMANSKI CHOLESTEROL (LDL) 03/24/2022 03/24/2021, 10/28/2019, 11/02/2018 MAMMOGRAM 05/24/2022 05/24/2021, 04/23, 05/10/2019, Additional history exists PNEUMOCOCCAL VACCINE (3 - PP SV23 or PCV20) 09/19/2022 09/19/2017, 07/07/2016 Covid-19 Vaccine (2022-11 4 season) 2024 08/04/2021, 12/04/2020, 11/13/2020 INFLUENZA (#1) 2024 BMI CHECK/ADVISE 10/23/2024 08/31/2023, , 02/06/2023, Additional history exists DTAP/TDAP/TD (2 - Td or Tdap) 07/07/2026 07/07/2016 Care Teams Physical Sciences Professor Relationship Specialty Start Date End Date Edouard Mccracken MD 11/15/21
--- OUTSIDE RECORDS SUMMARY | 2025-01-10 15:46 | XMS_ITS | Encounter Summary ---
Author Organization [facility] Address [address] [place] [address] Care Team Providers Care Parking Lot Manager Name Role Phone Betzy Duarte MD Primary Care Provider [phone] Edouard Mccracken MD Primary Care Provider Unavailabl e Edouard Mccracken MD Unavailable Unavailable Edouard Mccracken MD Unavailable Unavailable Reason for Visit * Reason Comments E-prescribe Rx Request Encounter Details Date Type Department Care Team Description 12/15/2020 Refill Internal Medicine - [address], [address] [place] [address] Betzy Duarte MD [address] [place] [id number] E-prescribe Rx Request Social History Tobacco [...] have Coronavirus / COVID-19? No / Unsure 12/03/2020 1:06 PM EST documented as of this encounter Miscellaneous Notes * Telephone Encounter - Dana Almita Dilip - 12/15/2020 9:09 AM EST HELIO 10/28/20 NOV 03/23/21 Orders Only on 12/03/2020 Component Date Value ??? Prothrombin Time 12/03/2020 28.1* ??? INR 12/03/2020 2.38 * Telephone Encounter - Kristel Prakash - 12/15/2020 8:54 AM EST Patient would like script to be: E-PRESCRIBED/FAXED TO PHARMACY WHEN WAS THE PATIENT'S LAST APPOINTMENT IN ADULT MEDICINE? 10/28/2020 WHEN WAS THE LAST TIME THE PATIENT SAW THEIR PCP? Same as above Does patient have an upcoming appointment? Yes 03/23/2021 (THE MEDICATION REQUESTED IS ON THE MED [...] / Plan[place] / Product Type: MEDICARE [id number] documented in this encounter Plan of Treatment Not on file documented as of this encounter Visit Diagnoses Not on filedocumented in this encounter Care Teams Parking Lot Manager Relationship Specialty Start Date End Date Betzy Duarte MD PCP - General Internal Medicine 02/22/19 10/13/21 Edouard Mccracken MD PCP - General 10/14/21 11/14/21 Edouard Mccracken MD 12/11/15 10/13/21 Edouard Mccracken MD 11/15/21 documented as of this encounter
--- OUTSIDE RECORDS SUMMARY | 2025-01-10 15:46 | XMS_ITS | Encounter Summary ---
Author Organization [facility] Address [address] [place] [address] Care Team Providers Care Laundry Machine Mechanic Name Role Phone Constanza Reyes MD Primary Care Provider Unava ilable Betzy Duarte MD Primary Care Provider [phone]- [phone] Edouard Mccracken MD Primary Care Provider Unavailabl e Edouard Mccracken MD Unavailable Unavailable Edouard Mccracken MD Unavailable Unavailable Encounter Details Date Type Department Care Team Description 08/27/2018 [facility] Medical Records [address] [place] [id number] Social History Tobacco Use Types Packs/Day Years [...] on filedocumented in this encounter Care Teams Laundry Machine Mechanic Relationship Specialty Start Date End Date Constanza Reyes MD PCP - General Internal Medicine 08/25/18 02/21/19 Betzy Duarte MD PCP - General Internal Medicine 02/22/19 10/13/21 Edouard Mccracken MD PCP - General 10/14/21 11/14/21 Edouard Mccracken MD 12/11/15 10/13/21 Edouard Mccracken MD 11/15/21 documented as of this encounter
--- OUTSIDE RECORDS SUMMARY | 2025-01-10 15:46 | XMS_ITS | Encounter Summary ---
Author Organization [facility] Address [address] [place] [address] Care Team Providers Care Liquor Bridge Operator Name Role Phone Edouard Mccracken MD Unavailable Unavailable Encounter Details Date Type Department Care Team Description 04/24/2024 [facility] Medical [facility] [address] [facility] [address] [place] [phone] Kim Perdomo NP [facility] [facility] [place] [address] Social History Tobacco Use Types Packs/Day Years [...] on filedocumented in this encounter Care Teams Liquor Bridge Operator Relationship Specialty Start Date End Date Edouard Mccracken MD 11/15/21 documented as of this encounter
--- OUTSIDE RECORDS SUMMARY | 2025-01-10 15:46 | XMS_ITS | Encounter Summary ---
Author Organization [facility] Address [address] [place] [address] Care Team Providers Care Medical Photographer Name Role Phone Betzy Duarte MD Primary Care Provider [phone]- [phone] Edouard Mccracken MD Primary Care Provider Unavailabl e Edouard Mccracken MD Unavailable Unavailable Edouard Mccracken MD Unavailable Unavailable Reason for Visit * Reason Comments E-prescribe Rx Request Encounter Details Date Type Department Care Team Description 08/06/2021 Refill Internal Medicine - [address], [address] [place] [address] Betzy Duarte MD [address] [place] [phone] E-prescribe Rx Request Social History Tobacco [...] have Coronavirus / COVID-19? No / Unsure 08/05/2021 12:58 PM EDT documented as of this encounter Miscellaneous Notes * Telephone Encounter - Santa Ramsey - 08/06/2021 9:30 AM EDT HELIO 03/23/21 NOV 09/22/21 documented in this encounter Plan of Treatment Not on file documented as of this encounter Visit Diagnoses Not on filedocumented in this encounter Care Teams Medical Photographer Relationship Specialty Start Date End Date Betzy Duarte MD PCP - General Internal Medicine 02/22/19 10/13/21 Edouard Mccracken MD PCP - General 10/14/21 11/14/21 Edouard Mccracken MD 12/11/15 10/13/21 Edouard Mccracken MD 11/15/21 documented as of this encounter
--- OUTSIDE RECORDS SUMMARY | 2025-01-10 15:46 | XMS_ITS | Encounter Summary ---
Author Organization [facility] Address [address] [place] [address] Care Team Providers Care Retail Supervisor Name Role Phone Edouard Mccracken MD Unavailable Unavailable Encounter Details Date Type Department Care Team Description 01/24/2022 All Around Gear Machine Operator Report Medical Records [address] [place] [address] Gabe Woods MD Social History Tobacco Use [...] have Coronavirus / COVID-19? No / Unsure 01/06/2022 1:42 PM EDT documented as of this encounter Plan of Treatment Not on file documented as of this encounter Visit Diagnoses Not on filedocumented in this encounter Care Teams Retail Supervisor Relationship Specialty Start Date End Date Edouard Mccracken MD 11/15/21 documented as of this encounter
== END 2025-01-10 14:34 | disposition home or self-care (01) ==
LOC: HO.HSMS 13:25
PROVIDERS: PCP Internal Medicine; Visit Provider Nurse Practitioner Family
DX: R41.89 Other symptoms and signs involving cognitive functions and awareness (principal); D64.9 Anemia, unspecified; R60.0 Localized edema; M47.816 Spondylosis without myelopathy or radiculopathy, lumbar region; G62.9 Polyneuropathy, unspecified
CPT/HCPCS: 99204

== ENCOUNTER → 2025-01-10 13:24 | Outpatient (BNVA) | payer MEDICARE, OTHER, SELFPAY | PROVIDERS: PCP Internal Medicine; Visit Provider Nurse Practitioner Family | DX: R41.89 Other symptoms and signs involving cognitive functions and awareness (principal); G62.9 Polyneuropathy, unspecified; D64.9 Anemia, unspecified; R60.0 Localized edema; M47.816 Spondylosis without myelopathy or radiculopathy, lumbar region | CPT/HCPCS: 99202 ==

== ENCOUNTER 2025-01-21 09:15 | Outpatient (REF) | payer MEDICARE, OTHER, SELFPAY ==
--- OUTSIDE RECORDS SUMMARY | 2025-01-21 10:21 | XMS_ITS | Encounter Summary ---
Author Organization [email or web address] Address [address] [place] [address] Care Team Providers Care Large Sheetfed Press Operator Name Role Phone Betzy Duarte MD Primary Care Provider [phone]- [phone] Edouard Mccracken MD Primary Care Provider Unavailabl e Edouard Mccracken MD Unavailable Unavailable Edouard Mccracken MD Unavailable Unavailable Encounter Details Date Type Department Care Team Description 02/23/2019 [facility] Medical Records [address] [place] [id number] Usha Lilly MD Social History Tobacco Use [...] on filedocumented in this encounter Care Teams Large Sheetfed Press Operator Relationship Specialty Start Date End Date Betzy Duarte MD PCP - General Internal Medicine 02/22/19 10/13/21 Edouard Mccracken MD PCP - General 10/14/21 11/14/21 Edouard Mccracken MD 12/11/15 10/13/21 Edouard Mccracken MD 11/15/21 documented as of this encounter
--- OUTSIDE RECORDS SUMMARY | 2025-01-21 10:21 | XMS_ITS | Encounter Summary ---
Author Organization [facility] Address [address] [place] [address] Care Team Providers Care Die Caster Name Role Phone Betzy Duarte MD Primary Care Provider [phone]- [phone] Edouard Mccracken MD Primary Care Provider Unavailabl e Edouard Mccracken MD Unavailable Unavailable Edouard Mccracken MD Unavailable Unavailable Reason for Visit * Reason Onset Date Comments refill request 02/22/2019 Encounter Details Date Type Department Care Team Description 02/22/2019 Refill Internal Medicine - [address], [address] [place] [address] Betzy Duarte MD [address] [place] [phone] refill request Social History Tobacco Use [...] N/A Patients current insurance carrier is: Payor: MEDICARE-[employer] / Plan: MEDICARE-[employer] / Product Type: MEDICARE [id number] documented in this encounter Plan of Treatment Not on file documented as of this encounter Visit Diagnoses Not on filedocumented in this encounter Care Teams Die Caster Relationship Specialty Start Date End Date Betzy Duarte MD PCP - General Internal Medicine 02/22/19 10/13/21 Edouard Mccracken MD PCP - General 10/14/21 11/14/21 Edouard Mccracken MD 12/11/15 10/13/21 Edouard Mccracken MD 11/15/21 documented as of this encounter
--- OUTSIDE RECORDS SUMMARY | 2025-01-21 10:21 | XMS_ITS | Encounter Summary ---
Author Organization [facility] Address [address] [place] [address] Care Team Providers Care Triple Valve Tester Name Role Phone Betzy Duarte MD Primary Care Provider [phone]- [phone] Edouard Mccracken MD Primary Care Provider Unavailabl e Edouard Mccracken MD Unavailable Unavailable Edouard Mccracken MD Unavailable Unavailable Encounter Details Date Type Department Care Team Description 05/10/2019 [facility] Medical Records [address] [place] [id number] Abstract, Provider Social History Tobacco Use Types [...] on filedocumented in this encounter Care Teams Triple Valve Tester Relationship Specialty Start Date End Date Betzy Duarte MD PCP - General Internal Medicine 02/22/19 10/13/21 Edouard Mccracken MD PCP - General 10/14/21 11/14/21 Edouard Mccracken MD 12/11/15 10/13/21 Edouard Mccracken MD 11/15/21 documented as of this encounter
--- OUTSIDE RECORDS SUMMARY | 2025-01-21 10:21 | XMS_ITS | Encounter Summary ---
Author Organization [facility] Address [address] [place] [address] Care Team Providers Care Centerpuncher Name Role Phone Constanza Reyes MD Primary Care Provider Unava Betzy Rose MD Primary Care Provider [phone]- [phone] Edouard Mccracken MD Primary Care Provider Unavailabl e Edouard Mccracken MD Unavailable Unavailable Edouard Mccracken MD Unavailable Unavailable Reason for Visit * Reason Comments E-prescribe Rx Request Encounter Details Date Type Department Care Team Description 01/13/2019 Refill Internal Medicine [address], [address] [place] [address] Constanza Reyes MD E-prescribe Rx Request Social History Tobacco Use Types Packs/Day Years Used Date Smoking Tobacco: Former Smokeless Tobacco: Never Comments:quit 2004 Alcohol Use Standard Drinks/Week Comments Yes 0 (1 standard drink = 0.6 oz pur e alcohol) occas Sex Assigned at Date Recorded Not on file documented as of this encounter Miscellaneous Notes * Telephone Encounter - Gayatri Jo M.A. - 01/15/2019 11:39 AM EDT Last appt 08/10/2018 Next appt 02/18/2019 documented in this encounter Plan of Treatment Not on file documented as of this encounter Visit Diagnoses Not on filedocumented in this encounter Care Teams Centerpuncher Relationship Specialty Start Date End Date Constanza Reyes MD PCP - General Internal Medicine 08/25/18 02/21/19 Betzy Duarte MD PCP - General Internal Medicine 02/22/19 10/13/21 Edouard Mccracken MD PCP - General 10/14/21 11/14/21 Edouard Mccracken MD 12/11/15 10/13/21 Edouard Mccracken MD 11/15/21 documented as of this encounter
--- OUTSIDE RECORDS SUMMARY | 2025-01-21 10:21 | XMS_ITS | Clinical Summary ---
Author Organization [facility] Address [address] [place] [address] Care Team Providers Care Science Liaison Name Role Phone Constanza Reyes MD Primary Care Provider Immunizations Name Administration Dates Next Due Pfizer SARS-CoV-2 COVID-19, mRNA, LNP-S, preservative free 08/04/2021,12/04/2020,11/13/2020 Surgical History Surgery Date Site/Laterality Comments APPENDECTOMY PROCEDURE: HISTORICAL APPENDECTOMY OTHER SURGICAL HISTORY PROCEDURE: HISTORICAL COLOSTOMY OTHER SURGICAL HISTORY PROCEDURE: NC REVJ COLOSTOMY SMPL RLS SUPFC SCAR SPX; COMMENT: reversal OTHER SURGICAL HISTORY PROCEDURE: VENA CAVA FILTER Medical History Medical History Date Comments Peripheral polyneuropathy 12/19/2017 DX:Per ipheral polyneuropathy Acquired lactose intolerance 08/26/2015 DX: Acquired lactose intolerance Anemia due to chronic illness 02/20/2018 DX :Anemia due to chronic illness Asthma 09/19/2017 DX:Asthma Carpal tunnel syndrome 09/02/2014 DX:Carpal tunnel syndrome Coagulopathy ([facility]CC) 08/14/2017 DX:Coagul opathy ([facility]) Depression 07/09/2018 DX:Depression Factor V Leiden ([facility]/HCC) 10/01/2018 DX:Fac tor V Leiden ([facility]); COMMENT: IVC filter Fibromyalgia 09/19/2017 DX:Fibromyalgia GERD (gastroesophageal reflux disease) 6 DX:GERD (gastroesophageal reflux disease) Hearing impairment 02/20/2018 DX:Hearing im pairment History of cervical cancer 12/19/2017 DX:Hi story of cervical cancer History of DVT (deep vein thrombosis) 10/01/2018 DX:History of DVT (deep vein thrombosis); COMMENT: 2011-chronic anticoagulation d/t Factor V Leiden; IVC filter placed. Hyperparathyroidism due to v itamin D deficiency ([facility]) 10/01/2018 DX:Hyperparathyroidism due t o vitamin D deficiency ([facility]) Hypertension 05/02/2017 DX:Hypertension Insomnia 10/11/2016 DX:Insomnia Kidney disease, chronic, sta ge IV (severe, EGFR 15-29 ml/min) ([facility]) 05/02/2017 DX:Kidney diseas e, chronic, stage IV (severe, EGFR 15-29 ml/min) ([facility]) Mild cognitive impairment 09/19/2017 DX:Mil d cognitive impairment Type 2 diabetes mellitus wit h neurological manifestations ([facility]) 10/01/2018 DX:Type 2 diabet es mellitus with neurological manifestations ([facility]) Type 2 diabetes mellitus wit h renal complication ([facility]) 12/25/2017 DX:Type 2 diabetes mellitus with renal complication ([facility]) Varicose veins 07/07/2016 DX:Varicose vein s Vitamin D deficiency 07/07/2016 DX:Vitamin D deficiency Family History Medical History Relation Name Comments Dementia Father hemorrhage Stomach cancer Maternal Grandmother Breast cancer Mother [place] Breast cancer Other niece Relation Name Status [...] Vaccine ( season) 2024 08/04/2021, 12/04/2020, 11/13/2020 Breast Cancer Screening 05/29/2025 05/29/20 23, 05/27/2022, 05/24/2021, Additional history exists Influenza Vaccine (Season Ended) 2025 DTaP,Tdap,and Td Vaccines (2 - Td or [...] Procedure Name Priority Date/Time Associated Diagnosis Comments [facility] SCREENING DIGITAL Routine 05/29/2023 3:47 PM EDT Encounter for screening mammogram for malignant neoplasm of breast [facility] DEXA AXIAL SKELETON Routine 04/05/2019 3:09 PM EDT Other specified disorders of bone density and structure, unspecified site from Last 3 Months or Most Recently Relevant to Health Maintenance Results * [facility] SCREENING DIGITAL (05/29/2023 3:47 PM EDT) Anatomical Region Laterality Modality Mammography 05/29/2023 1:37 PM EDT Narrative 05/29/2023 3:47 PM EDT [facility] Diagnostic Imaging Department [address] [place] [address] Patient: ??MAGNOLIA WILLSON ?/Age/Sex: 1950 - 72 - F Unit#: ??[id number] ? Location/Status: ??SPDIMAM/REG CLI ? Mnemonic/Ordering Site: ??DIGSC/SPMAM Ordering Physician: ??PACHECO SHORE MD [facility] Screening Digital - 05/29/23 - [id number] Report Status:Signed EXAM: [facility] Screening Digital EXAM DATE AND TIME: 05/29/2023 2:00 PM HISTORY: ??Screening. Family history of breast carcinoma including mother at age 75 and maternal aunt. COMPARISON: ??05/27/22, 05/24/21, 05/20/20 TECHNIQUE: Bilateral digital breast tomosynthesis was performed in the CC and MLO projections. Computer aided detection with Ch[employer]ur P[employer] 3D 3.1 was employed. TISSUE DENSITY: a. [...] Procedure Note Aby Sherman MD - 11/28/2023 [facility] Diagnostic Imaging Department [address] [place], [place] [id number] Patient: LISSETTE WILLSONSTACEY /Age/Sex: 1950 - 72 - F Unit#: [id number] Location/Status: [facility]/REG CLI Mnemonic/Ordering Site: [facility] Ordering Physician: PACHECO SHORE MD [facility] Screening Digital - 05/29/23 - [id number] Report Status:Signed EXAM: [facility] Screening Digital EXAM DATE AND TIME: 05/29/2023 2:00 PM HISTORY: Screening. Family history of breast carcinoma including motherat age 75 and maternal aunt. COMPARISON: 05/27/22, 05/24/21, 05/20/20 TECHNIQUE: Bilateral digital breast tomosynthesis was performed in the CCand MLO projections. Computer aided detection with Chauf[employer] P[employer] 3D 3.1was employed. TISSUE DENSITY: a. The [...] MD IMG BI PROCEDURES Final Result * [facility] DEXA AXIAL SKELETON (04/05/2019 3:09 PM EDT) Anatomical Region Laterality Modality Mammography 04/05/2019 1:53 PM EDT Narrative 04/05/2019 3:09 PM EDT [facility] Diagnostic Imaging Department [address] [place] [address] Patient: ??MAGNOLIA WILLSON ?/Age/Sex: 1950 - 68 - F Unit#: ??[id number] ? Location/Status: ??SPDIMAM/REG CLI ? Mnemonic/Ordering Site: ??MAMDEXAAX/SPMAM Ordering Physician: ??GABE Woods MD [facility] Dexa Axial Skeleton - 04/05/19 - 145 [...] probability of hip fracture of 0.3%. Code 95222 Dictating Physician: ??RENETTA CASTORENA MD Electronically Signed by: ??RENETTA CASTORENA MD Dic Date/Time: ??04/05/19 1506 Sign date/Time: ??04/05/19 1505 Procedure Note Renetta Castorena - 10/11/2022 [facility] Diagnostic Imaging Department [address] [place] [address] Patient: ANAMIKAMAGNOLIA /Age/Sex: 1950 - 68 - F Unit#: [id number] Location/Status: [facility] Mnemonic/Ordering Site[facility] Ordering Physician: GABE Woods MD [facility] Dexa Axial Skeleton - 04/05/19 - [id number] HISTORY: The patient is a 68-year-old postmenopausal [...] density of the femurs bilaterally is 1.038 gm/yx7zmgar is 103% of that of young normals [...] probability of hip fracture of 0.3%. Code 53742 Dictating Physician: RENETTA CASTORENA MD Electronically Signed by: RENETTA CASTORENA MD Dic Date/Time: 04/05/19 1506 Sign date/Time: 04/05/19 1509 us Gabe Woods MD IMG BI PROCEDURES Final Res ult from Last 3 Months or Most Recently Relevant to Health Maintenance Advance Directives Documents on File Type Date Recorded Patient Ramp And Cargo Supervisor Expl anation Health Care Decision (hx) 02/22/2019 AD LOPEZ DIRECTIVE Health Care Decision (hx) 02/22/2019 AD LOPEZ DIRECTIVE Health Care Decision (hx) 02/22/2019 AD LOPEZ DIRECTIVE Health Care Decision (hx) 02/22/2019 AD LOPEZ DIRECTIVE Care Teams Science Liaison Relationship Specialty Start Date End Date Constanza Reyes MD PCP - General Internal Medicine 02/19/18
--- OUTSIDE RECORDS SUMMARY | 2025-01-21 10:21 | XMS_ITS | Encounter Summary ---
Author Organization [facility] Address [address] [place] [address] Care Team Providers Care Curtain Hemmer Automatic Name Role Phone Betzy Duarte MD Primary Care Provider +1- [phone] Edouard Mccracken MD Primary Care Provider Unavailabl e Edouard Mccracken MD Unavailable Unavailable Edouard Mccracken MD Unavailable Unavailable Reason for Visit * Reason Comments E-prescribe Rx Request Encounter Details Date Type Department Care Team Description 10/04/2020 Refill Internal Medicine - [address], [address] [place] [address] Betzy Duarte MD [address] [place] [phone] E-prescribe Rx Request Social History Tobacco [...] have Coronavirus / COVID-19? No / Unsure 10/07/2020 1:57 PM EST documented as of this encounter Miscellaneous Notes * Telephone Encounter - Gayatri Jo M.A. - 10/05/2020 2:15 PM EST Lab Results Component Value Date NA 140 06/16/2020 K 4.0 06/16/2020 CO2 28 06/16/2020 CL 105 06/16/2020 BUN 32 06/16/2020 CREAT 2.04 06/16/2020 GLU 132 06/16/2020 ALB 3.4 06/16/2020 SGOT 10 06/16/2020 SGPT 15 06/16/2020 TBILI 0.3 06/16/2020 ALKPHOS 71 06/16/2020 TP 7.9 06/16/2020 CA 8.8 06/16/2020 GFR 24 06/16/2020 * Telephone Encounter - Dot Jamil - 10/05/2020 1:05 PM EST HELIO 07/01/2020 NOV: 10/28/2020 90 day supply. documented in this encounter Plan of Treatment Not on file documented as of this encounter Visit Diagnoses Not on filedocumented in this encounter Care Teams Curtain Hemmer Automatic Relationship Specialty Start Date End Date Betzy Duarte MD PCP - General Internal Medicine 02/22/19 10/13/21 Edouard Mccracken MD PCP - General 10/14/21 11/14/21 Edouard Mccracken MD 12/11/15 10/13/21 Edouard Mccracken MD 11/15/21 documented as of this encounter
--- OUTSIDE RECORDS SUMMARY | 2025-01-21 10:21 | XMS_ITS | Encounter Summary ---
Author Organization [facility] Address [address] [place] [address] Care Team Providers Care Griddle Cook Name Role Phone Betzy Duarte MD Primary Care Provider +1- [phone] Edouard Mccracken MD Primary Care Provider Unavailabl e Edouard Mccracken MD Unavailable Unavailable Edouard Mccracken MD Unavailable Unavailable Encounter Details Date Type Department Care Team Description 02/27/2019 Orders Only Medical Records [address] [place] [id number] Abstract, Provider Social History Tobacco Use Types [...] on filedocumented in this encounter Care Teams Griddle Cook Relationship Specialty Start Date End Date Betzy Duarte MD PCP - General Internal Medicine 02/22/19 10/13/21 Edouard Mccracken MD PCP - General 10/14/21 11/14/21 Edouard Mccracken MD 12/11/15 10/13/21 Edouard Mccracken MD 11/15/21 documented as of this encounter
--- OUTSIDE RECORDS SUMMARY | 2025-01-21 10:21 | XMS_ITS | Encounter Summary ---
Author Organization [facility] Address [address] [place] [address] Care Team Providers Care Cloth Dyer Name Role Phone Betzy Duarte MD Primary Care Provider +1- [phone] Edouard Mccracken MD Primary Care Provider Unavailabl e Edouard Mccracken MD Unavailable Unavailable Edouard Mccracken MD Unavailable Unavailable Encounter Details Date Type Department Care Team Description 04/22/2019 Counseling Psychologist Report Medical Records [address] [place] [address] Audelia Vasquez NP Social History Tobacco Use [...] on filedocumented in this encounter Care Teams Cloth Dyer Relationship Specialty Start Date End Date Betzy Duarte MD PCP - General Internal Medicine 02/22/19 10/13/21 Edouard Mccracken MD PCP - General 10/14/21 11/14/21 Edouard Mccracken MD 12/11/15 10/13/21 Edouard Mccracken MD 11/15/21 documented as of this encounter
--- OUTSIDE RECORDS SUMMARY | 2025-01-21 10:21 | XMS_ITS | Encounter Summary ---
Author Organization [facility] Address [address] [place] [address] Care Team Providers Care Breaker Oiler Name Role Phone Betzy Duarte MD Primary Care Provider +1- [phone] Edouard Mccracken MD Primary Care Provider Unavailabl e Edouard Mccracken MD Unavailable Unavailable Edouard Mccracken MD Unavailable Unavailable Encounter Details Date Type Department Care Team Description 02/24/2019 [facility] Medical Records [address] [place] [address] Yoandy Frazier Social History Tobacco Use Types Packs/Day Years [...] on filedocumented in this encounter Care Teams Breaker Oiler Relationship Specialty Start Date End Date Betzy Duarte MD PCP - General Internal Medicine 02/22/19 10/13/21 Edouard Mccracken MD PCP - General 10/14/21 11/14/21 Edouard Mccracken MD 12/11/15 10/13/21 Edouard Mccracken MD 11/15/21 documented as of this encounter
--- OUTSIDE RECORDS SUMMARY | 2025-01-21 10:21 | XMS_ITS | Encounter Summary ---
[facility] Organization [facility] Address [address] [place] [address] Care Team Providers Care Industrial Psychology Teacher Name Role Phone Constanza Reyes MD Primary Care Provider Unava ilable Betzy Duarte MD Primary Care Provider +1- [phone] Edouard Mccracken MD Primary Care Provider Unavailabl e Edouard Mccracken MD Unavailable Unavailable Edouard Mccracken MD Unavailable Unavailable Encounter Details Date Type Department Care Team Description 12/24/2018 Hiv Cts Specialist Report Medical Records [address] [place] [address] Estuardo Oconnor MD Social History Tobacco Use [...] on filedocumented in this encounter Care Teams Industrial Psychology Teacher Relationship Specialty Start Date End Date Constanza Reyes MD PCP - General Internal Medicine 08/25/18 02/21/19 Betzy Duarte MD PCP - General Internal Medicine 02/22/19 10/13/21 Edouard Mccracken MD PCP - General 10/14/21 11/14/21 Edouard Mccracken MD 12/11/15 10/13/21 Edouard Mccracken MD 11/15/21 documented as of this encounter
--- OUTSIDE RECORDS SUMMARY | 2025-01-21 10:22 | XMS_ITS | Encounter Summary ---
Author Organization [facility] Address [address] [place] [address] Care Team Providers Care Road Contractor Name Role Phone Betzy Duarte MD Primary Care Provider +1- [phone] Edouard Mccracken MD Primary Care Provider Unavailabl e Edouard Mccracken MD Unavailable Unavailable Edouard Mccracken MD Unavailable Unavailable Reason for Visit * Reason Comments E-prescribe Rx Request Encounter Details Date Type Department Care Team Description 09/05/2019 Refill Internal Medicine - [address], [address] [place] [address] Betzy Duarte MD [address] [place] [phone] E-prescribe Rx Request Social History Tobacco [...] / Plan: [place] / Product Type: MEDICARE [id number] documented in this encounter Plan of Treatment Not on file documented as of this encounter Visit Diagnoses Not on filedocumented in this encounter Care Teams Road Contractor Relationship Specialty Start Date End Date Betzy Duarte MD PCP - General Internal Medicine 02/22/19 10/13/21 Edouard Mccracken MD PCP - General 10/14/21 11/14/21 Edouard Mccracken MD 12/11/15 10/13/21 Edouard Mccracken MD 11/15/21 documented as of this encounter
--- OUTSIDE RECORDS SUMMARY | 2025-01-21 10:22 | XMS_ITS | Encounter Summary ---
Author Organization [facility] Address [address] [place] [address] Care Team Providers Care Campus Recruiter Name Role Phone Betzy Duarte MD Primary Care Provider +1- [phone] Edouard Mccracken MD Primary Care Provider Unavailabl e Edouard Mccarcken MD Unavailable Unavailable Edouard Mccracken MD Unavailable Unavailable Encounter Details Date Type Department Care Team Description 11/04/2020 Secretarial Stenographer Report Medical Records [address] [place] [address] Gabe Woods MD Social History Tobacco Use [...] have Coronavirus / COVID-19? No / Unsure 11/04/2020 12:41 PM EST documented as of this encounter Plan of Treatment Not on file documented as of this encounter Visit Diagnoses Not on filedocumented in this encounter Care Teams Campus Recruiter Relationship Specialty Start Date End Date Betzy Duarte MD PCP - General Internal Medicine 02/22/19 10/13/21 Edouard Mccracken MD PCP - General 10/14/21 11/14/21 Edouard Mccracken MD 12/11/15 10/13/21 Edouard Mccracken MD 11/15/21 documented as of this encounter
--- OUTSIDE RECORDS SUMMARY | 2025-01-21 10:22 | XMS_ITS | Encounter Summary ---
Author Organization [facility] Address [address] [place] [address] Care Team Providers Care Joint Maker Machine Name Role Phone [facility], Pcp Primary Care Provider Constanza Turcios MD Primary Care Provider Yarava eBtzy Rose MD Primary Care Provider +1- [phone] Edouard Mccracken MD Primary Care Provider UnavailEdouard Nick MD Unavailable Unavailable Edouard Mccracken MD Unavailable Unavailable Reason for Visit * Reason Onset Date Comments Medication 03/29/2018 Encounter Details Date Type Department Care Team Description 03/29/2018 Telephone Physiatry - [address] [id number] Shane Santizo PA-C Medication Social History Tobacco [...] patient does not receive all services at [facility]. A note in her chart states Dr Mccracken is her pcp, wrong number in her chart and web search. documented in this encounter Plan of Treatment Not on file documented as of this encounter Visit Diagnoses Not on filedocumented in this encounter Care Teams Joint Maker Machine Relationship Specialty Start Date End Date [facility], Pcp PCP - General Internal Medicine 01/23/17 08/24/18 Constanza Reyes MD PCP - General Internal Medicine 08/25/18 02/21/19 Betzy Duarte MD PCP - General Internal Medicine 02/22/19 10/13/21 Edouard Mccracken MD PCP - General 10/14/21 11/14/21 dEouard Mccracken MD 12/11/15 10/13/21 Edouard Mccracken MD 11/15/21 documented as of this encounter
--- OUTSIDE RECORDS SUMMARY | 2025-01-21 10:22 | XMS_ITS | Encounter Summary ---
Author Organization [facility] Address [address] [place] [address] Care Team Providers Care Hydroelectric Station Operator Chief Name Role Phone Edouard Mccracken MD Unavailable Unavailable Encounter Details Date Type Department Care Team Description 03/14/2024 SCAN [facility] Medical [facility] [address] [facility] [address] [place] [phone] Kim Perdomo NP [facility] [facility] [place] [address] Social History Tobacco Use Types Packs/Day Years [...] on filedocumented in this encounter Care Teams Hydroelectric Station Operator Chief Relationship Specialty Start Date End Date Edouard Mccracken MD 11/15/21 documented as of this encounter
--- OUTSIDE RECORDS SUMMARY | 2025-01-21 10:22 | XMS_ITS | Encounter Summary ---
Author Organization [facility] Address [address] [place] [address] Care Team Providers Care Care Coordinator Name Role Phone Betzy Duarte MD Primary Care Provider +1- [phone] Edouard Mccrackne MD Primary Care Provider Unavailabl e Edouard Mccracken MD Unavailable Unavailable Edouard Mccracken MD Unavailable Unavailable Reason for Visit * Reason Comments E-prescribe Rx Request Encounter Details Date Type Department Care Team Description 01/16/2021 Refill Internal Medicine - [address], [address] [place] [address] Betzy Duarte MD [address] [place] [phone] E-prescribe Rx Request Social History Tobacco [...] have Coronavirus / COVID-19? No / Unsure 12/30/2020 12:32 PM EST documented as of this encounter Miscellaneous Notes * Telephone Encounter - Dana Almita Dilip - 01/18/2021 8:36 AM EDT HELIO 10/28/20 NOV 03/23/21 BP Readings from Last 3 Encounters: 10/28/20 126/76 07/01/20 120/70 06/16/20 128/72 documented in this encounter Plan of Treatment Not on file documented as of this encounter Visit Diagnoses Not on filedocumented in this encounter Care Teams Care Coordinator Relationship Specialty Start Date End Date Betzy Duarte MD PCP - General Internal Medicine 02/22/19 10/13/21 Edouard Mccracken MD PCP - General 10/14/21 11/14/21 Edouard Mccracken MD 12/11/15 10/13/21 Edouard Mccracken MD 11/15/21 documented as of this encounter
--- OUTSIDE RECORDS SUMMARY | 2025-01-21 10:22 | XMS_ITS | Encounter Summary ---
Author Organization [facility] Address [address] [place] [address] Care Team Providers Care Forklift Wheel Loader Name Role Phone Betzy Duarte MD Primary Care Provider +1- [phone] Edouard Mccracken MD Primary Care Provider Unavailabl e Edouard Mccracken MD Unavailable Unavailable Edouard Mccracken MD Unavailable Unavailable Reason for Visit * Reason Onset Date Comments Medication 04/09/2021 Encounter Details Date Type Department Care Team Description 04/09/2021 Telephone Internal Medicine - [address], [address] [place] [address] Betzy Duarte MD [address] [place] [phone] Medication Social History Tobacco Use Types Packs/Day [...] have Coronavirus / COVID-19? No / Unsure 03/23/2021 2:52 PM EDT documented as of this encounter Miscellaneous Notes * Telephone Encounter - Maria Ines Ballard L.P.N. - 04/12/2021 4:03 PM EDT As per my records states on 4 mg , apparent;ly pt had both 6 mg and 4 mg , will now only use 4 mg Lab Results Component Value Date INR 2.64 03/24/2021 * Telephone Encounter - Latisha Hodges - 04/09/2021 3:23 PM EDT Who is calling? The patient Name of the medication Warfarin 4mg and 6mg What is the specific problem or interaction? Patient needs the 4mg Mondays and Monday and Fridays and Sundays, and the 6mg Tuesdays and Saturdays directed by Maria Ines patient said she is out of both medications If the patient is having a problem with taking the med - how long has the problem been going on? N/A documented in this encounter Plan of Treatment Not on file documented as of this encounter Visit Diagnoses Not on filedocumented in this encounter Care Teams Forklift Wheel Loader Relationship Specialty Start Date End Date Betzy Duarte MD PCP - General Internal Medicine 02/22/19 10/13/21 Edouard Mccracken MD PCP - General 10/14/21 11/14/21 Edouard Mccracken MD 12/11/15 10/13/21 Edouard Mccracken MD 11/15/21 documented as of this encounter
--- OUTSIDE RECORDS SUMMARY | 2025-01-21 10:22 | XMS_ITS | Encounter Summary ---
Author Organization [facility] Address [address] [place] [address] Care Team Providers Care Product Management Internship Name Role Phone Betzy Duarte MD Primary Care Provider +1- [phone] Edouard Mccracken MD Primary Care Provider Unavailabl e Edouard Mccracken MD Unavailable Unavailable Edouard Mccracken MD Unavailable Unavailable Reason for Visit * Reason Comments E-prescribe Rx Request Encounter Details Date Type Department Care Team Description 05/11/2020 Refill Internal Medicine - [address], [address] [place] [address] Betzy Duarte MD [address] [place] [phone] E-prescribe Rx Request Social History Tobacco Use Types Packs/Day Years Used Date Smoking Tobacco: Former Smokeless Tobacco: Never Comments:quit 2004 Alcohol Use Standard Drinks/Week Comments Yes 0 (1 standard drink = 0.6 oz pur e alcohol) occas Sex Assigned at Date Recorded Not on file documented as of this encounter Miscellaneous Notes * Telephone Encounter - Gayatri Jo M.A. - 05/11/2020 4:22 PM EDT BP Readings from Last 3 Encounters: 04/27/20 132/64 02/17/20 138/72 10/25/19 (!) 146/60 Lab Results Component Value Date NA 140 02/17/2020 K 3.9 02/17/2020 CO2 27 02/17/2020 CL 106 02/17/2020 BUN 33 02/17/2020 CREAT 2.06 02/17/2020 GLU 103 02/17/2020 CA 8.4 02/17/2020 GFR 24 02/17/2020 * Telephone Encounter - Allison Spencer - 05/11/2020 3:23 PM EDT Aury 04/27/2020 Next 07/01/2020 30 day supply documented in this encounter Plan of Treatment Not on file documented as of this encounter Visit Diagnoses Not on filedocumented in this encounter Care Teams Product Management Internship Relationship Specialty Start Date End Date Betzy Duarte MD PCP - General Internal Medicine 02/22/19 10/13/21 Edouard Mccracken MD PCP - General 10/14/21 11/14/21 Edouard Mccracken MD 12/11/15 10/13/21 Edouard Mccracken MD 11/15/21 documented as of this encounter
--- OUTSIDE RECORDS SUMMARY | 2025-01-21 10:22 | XMS_ITS | Encounter Summary ---
Author Organization [facility] Address [address] [place] [address] Care Team Providers Care Finance Lead Name Role Phone Betzy Duarte MD Primary Care Provider +1- [phone] Edouard Mccracken MD Primary Care Provider Unavailabl e Edouard Mccracken MD Unavailable Unavailable Edouard Mccracken MD Unavailable Unavailable Reason for Visit * Reason Comments E-prescribe Rx Request Encounter Details Date Type Department Care Team Description 03/30/2020 Refill Internal Medicine - [address], [address] [place] [address] Betzy Duarte MD [address] [place] [phone] E-prescribe Rx Request Social History Tobacco Use Types Packs/Day Years Used Date Smoking Tobacco: Former Smokeless Tobacco: Never Comments:quit 2004 Alcohol Use Standard Drinks/Week Comments Yes 0 (1 standard drink = 0.6 oz pur e alcohol) occas Sex Assigned at Date Recorded Not on file documented as of this encounter Miscellaneous Notes * Telephone Encounter - Maria Ines Ballard L.P.N. - 03/31/2020 10:01 AM EDT ..lastinr Lab Results Component Value Date WBC 10.9 02/17/2020 HGB 10.3 02/17/2020 HCT 34.5 02/17/2020 MCV 89.4 02/17/2020 PLTCT 318 02/17/2020 * Telephone Encounter - China Carreragalileo - 03/31/2020 9:56 AM EDT Patient would like script to be: E-PRESCRIBED/FAXED TO PHARMACY WHEN WAS THE PATIENT'S LAST APPOINTMENT IN ADULT MEDICINE? 02/26/20 WHEN WAS THE LAST TIME THE PATIENT SAW THEIR PCP? Same as above Does patient have an upcoming appointment? Yes 07/01/20 (THE MEDICATION REQUESTED IS ON THE MED [...] / [place] / Product Type: MEDICARE [id number] documented in this encounter Plan of Treatment Not on file documented as of this encounter Visit Diagnoses Not on filedocumented in this encounter Care Teams Finance Lead Relationship Specialty Start Date End Date Betzy Duarte MD PCP - General Internal Medicine 02/22/19 10/13/21 Edouard Mccracken MD PCP - General 10/14/21 11/14/21 Edouard Mccracken MD 12/11/15 10/13/21 Edouard Mccracken MD 11/15/21 documented as of this encounter
--- OUTSIDE RECORDS SUMMARY | 2025-01-21 10:22 | XMS_ITS | Encounter Summary ---
Author Organization [facility] Address [address] [place] [address] Care Team Providers Care Engraver Hand Hard Metals Name Role Phone Edouard Mccracken MD Unavailable Unavailable Reason for Visit * Reason Onset Date Comments Medication Injection 03/25/2024 Encounter Details Date Type Department Care Team Description 03/25/2024 Telephone [facility] Medical [facility] [address] [phone] Simone Jimenez MD 175 [facility] [place] [address] [place] [address] Medication Injection Social History Tobacco Use Types Packs/Day Years Used Date Smoking Tobacco: Former Smokeless Tobacco: Never Comments:quit 2004 Alcohol Use Standard Drinks/Week Comments Yes 0 (1 standard drink = 0.6 oz pur e alcohol) occas Sex Assigned at Date Recorded Not on file documented as of this encounter Miscellaneous Notes * Telephone Encounter - Janice Gonzalez - 04/05/2024 3:13 PM EDT I called the patient and let her know that since her insurance is expiring soon on 04/21/24, I thinkit would be best to wait until it renews on 04/22/24 and submit the PA for gel injections then so sheisn't billed. Patient gave verbal agreement and understanding. * Telephone Encounter - Janice Gonzalez - 03/25/2024 2:52 PM EDT I called the patient regarding her secondary insurance, [facility] medicare, as [employer] stated that the planruns from 04/22/23-04/21/24 and I was in the process of submitting a prior auth for Durolane. The patient confirmed that she plans to renew her current plan with [facility]. documented in this encounter Plan of Treatment Not on file documented as of this encounter Visit Diagnoses Not on filedocumented in this encounter Care Teams Engraver Hand Hard Metals Relationship Specialty Start Date End Date Edouard Mccracken MD 11/15/21 documented as of this encounter
--- OUTSIDE RECORDS SUMMARY | 2025-01-21 10:22 | XMS_ITS | Encounter Summary ---
Author Organization [facility] Address [address] [place] [address] Care Team Providers Care Mental Health Therapist Name Role Phone Betzy Duarte MD Primary Care Provider +1- [phone] Edouard Mccracken MD Primary Care Provider Unavailabl e Edouard Mccracken MD Unavailable Unavailable Edouard Mccracken MD Unavailable Unavailable Encounter Details Date Type Department Care Team Description 05/03/2021 Torch Burner Report Medical Records [address] [place] [address] Audelia Vasquez NP Social History Tobacco Use [...] on filedocumented in this encounter Care Teams Mental Health Therapist Relationship Specialty Start Date End Date Betzy Duarte MD PCP - General Internal Medicine 02/22/19 10/13/21 Edouard Mccracken MD PCP - General 10/14/21 11/14/21 Edouard Mccracken MD 12/11/15 10/13/21 Edouard Mccracken MD 11/15/21 documented as of this encounter
--- OUTSIDE RECORDS SUMMARY | 2025-01-21 10:22 | XMS_ITS | Clinical Summary ---
Author Organization [facility] Address [address] [place] [address] Care Team Providers Care Medical Research Associate Name Role Phone Edouard Mccracken MD Unavailable [...] CA Stomach Maternal Grandmother CA Breast Mother DC CA Breast Other niece Relation Name Status [...] Td or Tdap) 07/07/2026 07/07/2016 Care Teams Medical Research Associate Relationship Specialty Start Date End Date Edouard Mccracken MD 11/15/21
--- OUTSIDE RECORDS SUMMARY | 2025-01-21 10:22 | XMS_ITS | Encounter Summary ---
Author Organization [facility] Address [address] [place] [address] Care Team Providers Care Literacy Coordinator Name Role Phone Betzy Duarte MD Primary Care Provider +1- [phone] Edouard Mccracken MD Primary Care Provider Unavailabl e Edouard Mccracken MD Unavailable Unavailable Edouard Mccracken MD Unavailable Unavailable Reason for Visit * Reason Onset Date Comments Pre Op Visit 01/02/2020 Encounter Details Date Type Department Care Team Description 01/02/2020 Telephone Internal Medicine - [address], [address] [place] [address] Betzy Duarte MD [address] [place] [phone] Pre Op Visit Social History Tobacco [...] Tomer rich Office phone number of surgeon: [phone] Fax # for surgeons office: [phone] (Required) Where is surgery being performed? Surgery center [address] Diagnosis/problem for surgery: Cataract Is an EKG required for the pre-op workup? NO PCP: Betzy Duarte Did you verify that the insurance below is correct? YES Patients insurance: [place] / Plan: [place]-[employer] / Product Type: MEDICARE [id number] documented in this encounter Plan of Treatment Not on file documented as of this encounter Visit Diagnoses Not on filedocumented in this encounter Care Teams Literacy Coordinator Relationship Specialty Start Date End Date Betzy Duarte MD PCP - General Internal Medicine 02/22/19 10/13/21 Edouard Mccracken MD PCP - General 10/14/21 11/14/21 Edouard Mccracken MD 12/11/15 10/13/21 Edouard Mccracken MD 11/15/21 documented as of this encounter
--- OUTSIDE RECORDS SUMMARY | 2025-01-21 10:22 | XMS_ITS | Encounter Summary ---
Author Organization [facility] Address [address] [place] [address] Care Team Providers Care Outpatient Clerk Name Role Phone Betzy Duarte MD Primary Care Provider +1- [phone] Edouard Mccracken MD Primary Care Provider Unavailabl e Edouard Mccracken MD Unavailable Unavailable Edouard Mccracken MD Unavailable Unavailable Reason for Visit * Reason Comments E-prescribe Rx Request Encounter Details Date Type Department Care Team Description 06/28/2021 Refill Internal Medicine - [address], [address] [place] [address] Betzy Duarte MD [address] [place] [phone] E-prescribe Rx Request Social History Tobacco [...] Miscellaneous Notes * Telephone Encounter - Almita Luoadina QUEVEDO - 07/02/2021 12:25 PM EDT BP Readings from Last 3 Encounters: 03/23/21 132/56 10/28/20 126/76 07/01/20 120/70 * Telephone Encounter - Mariana Aleman - 07/02/2021 10:05 AM EDT Aury 03/23/21 Nov 09/22/21 documented in this encounter Plan of Treatment Not on file documented as of this encounter Visit Diagnoses Not on filedocumented in this encounter Care Teams Outpatient Clerk Relationship Specialty Start Date End Date Betzy Duarte MD PCP - General Internal Medicine 02/22/19 10/13/21 Edouard Mccracken MD PCP - General 10/14/21 11/14/21 Edouard Mccracken MD 12/11/15 10/13/21 Edouard Mccracken MD 11/15/21 documented as of this encounter
--- OUTSIDE RECORDS SUMMARY | 2025-01-21 10:22 | XMS_ITS | Encounter Summary ---
Author Organization [facility] Address [address] [place] [address] Care Team Providers Care Lever Operator Name Role Phone Betzy Duarte MD Primary Care Provider +1- [phone] Edouard Mccracken MD Primary Care Provider Unavailabl e Edouard Mccracken MD Unavailable Unavailable Edouard Mccracken MD Unavailable Unavailable Reason for Visit * Reason Comments E-prescribe Rx Request Encounter Details Date Type Department Care Team Description 08/06/2021 Refill Internal Medicine - [address], [address] [place] [address] Betzy Duarte MD [address] [place] [phone] E-prescribe Rx Request Social History Tobacco [...] on filedocumented in this encounter Care Teams Lever Operator Relationship Specialty Start Date End Date Betzy Duarte MD PCP - General Internal Medicine 02/22/19 10/13/21 Edouard Mccracken MD PCP - General 10/14/21 11/14/21 Edouard Mccracken MD 12/11/15 10/13/21 Edouard Mccracken MD 11/15/21 documented as of this encounter
--- OUTSIDE RECORDS SUMMARY | 2025-01-21 10:22 | XMS_ITS | Encounter Summary ---
Author Organization [facility] Address [address] [place] [address] Care Team Providers Care Math And Physics Instructor Name Role Phone Constanza Reyes MD Primary Care Provider Unava ilable Betzy Duarte MD Primary Care Provider +1- [phone] Edouard Mccracken MD Primary Care Provider Unavailabl e Edouard Mccracken MD Unavailable Unavailable Edouard Mccrcaken MD Unavailable Unavailable Encounter Details Date Type Department Care Team Description 10/30/2018 Rn Hemodialysis Charge Report Medical Records [address] [place] [address] Carina lFores MD Social History Tobacco Use Types Packs/Day [...] on filedocumented in this encounter Care Teams Math And Physics Instructor Relationship Specialty Start Date End Date Constanza Reyes MD PCP - General Internal Medicine 08/25/18 02/21/19 Betzy Duarte MD PCP - General Internal Medicine 02/22/19 10/13/21 Edouard Mccracken MD PCP - General 10/14/21 11/14/21 Edouard Mccracken MD 12/11/15 10/13/21 Edouard Mccracken MD 11/15/21 documented as of this encounter
--- OUTSIDE RECORDS SUMMARY | 2025-01-21 10:22 | XMS_ITS | Encounter Summary ---
Author Organization [facility] Address [address] [place] [address] Care Team Providers Care Cadd Instructor Name Role Phone Edouard Mccracken MD Unavailable Unavailable Encounter Details Date Type Department Care Team Description 04/24/2024 [facility] Medical [facility] [address] [facility] [address] [place] [phone] Kim Perdomo NP [facility] [place] [address] Social History Tobacco Use Types Packs/Day Years [...] on filedocumented in this encounter Care Teams Cadd Instructor Relationship Specialty Start Date End Date Edouard Mccracken MD 11/15/21 documented as of this encounter
--- OUTSIDE RECORDS SUMMARY | 2025-01-21 10:22 | XMS_ITS | Encounter Summary ---
Author Organization [facility] Address [address] [place] [address] Care Team Providers Care Undercover Cop Name Role Phone Betzy Duarte MD Primary Care Provider +1- [phone] Edouard Mccracken MD Primary Care Provider Unavailabl e Edouard Mccracken MD Unavailable Unavailable Edouard Mccracken MD Unavailable Unavailable Encounter Details Date Type Department Care Team Description 03/24/2020 Molder Operator Report Medical Records [address] [place] [address] Gabe Woods MD Social History Tobacco Use [...] on filedocumented in this encounter Care Teams Undercover Cop Relationship Specialty Start Date End Date Betzy Duarte MD PCP - General Internal Medicine 02/22/19 10/13/21 Edouard Mccracken MD PCP - General 10/14/21 11/14/21 Edouard Mccracken MD 12/11/15 10/13/21 Edouard Mccracken MD 11/15/21 documented as of this encounter
--- OUTSIDE RECORDS SUMMARY | 2025-01-21 10:22 | XMS_ITS | Encounter Summary ---
Author Organization [facility] Address [address] [place] [address] Care Team Providers Care House Supervisor Name Role Phone Betzy Duarte MD Primary Care Provider +1- [phone] Edouard Mccracken MD Primary Care Provider Unavailabl e Edouard Mccracken MD Unavailable Unavailable Edouard Mccracken MD Unavailable Unavailable Reason for Visit * Reason Comments E-prescribe Rx Request Encounter Details Date Type Department Care Team Description 02/14/2021 Refill Internal Medicine - [address], [address] [place] [address] Betzy Duarte MD [address] [place] [phone] E-prescribe Rx Request Social History Tobacco [...] have Coronavirus / COVID-19? No / Unsure 01/27/2021 12:28 PM EDT documented as of this encounter Miscellaneous Notes * Telephone Encounter - Dana Almita Dilip - 02/15/2021 1:59 PM EDT Aury 10/28/20 03/23/21 BP Readings from Last 3 Encounters: 10/28/20 126/76 07/01/20 120/70 06/16/20 128/72 * Telephone Encounter - Merlin Viviana - 02/15/2021 1:49 PM EDT Aury 10/28/20 Nov 03/23/21 30 documented in this encounter Plan of Treatment Not on file documented as of this encounter Visit Diagnoses Not on filedocumented in this encounter Care Teams House Supervisor Relationship Specialty Start Date End Date Betzy Duarte MD PCP - General Internal Medicine 02/22/19 10/13/21 Edouard Mccracken MD PCP - General 10/14/21 11/14/21 Edouard Mccracken MD 12/11/15 10/13/21 Edouard Mccracken MD 11/15/21 documented as of this encounter
--- OUTSIDE RECORDS SUMMARY | 2025-01-21 10:22 | XMS_ITS | Encounter Summary ---
Author Organization [facility] Address [address] [place] [address] Care Team Providers Care Outpatient Pharmacy Manager Name Role Phone Betzy Duarte MD Primary Care Provider +1- [phone] Edouard Mccracken MD Primary Care Provider Unavailabl e Edouard Mccracken MD Unavailable Unavailable Edouard Mccracken MD Unavailable Unavailable Reason for Visit * Reason Comments E-prescribe Rx Request Encounter Details Date Type Department Care Team Description 05/25/2021 Refill Internal Medicine - [address], [address] [place] [address] Betzy Duarte MD [address] [place] [phone] E-prescribe Rx Request Social History Tobacco [...] filedocumented in this encounter Care Teams Outpatient Pharmacy Manager Relationship Specialty Start Date End Date Betzy Duarte MD PCP - General Internal Medicine 02/22/19 10/13/21 Edouard Mccracken MD PCP - General 10/14/21 11/14/21 Edouard Mccracken MD 12/11/15 10/13/21 Edouard Mccracken MD 11/15/21 documented as of this encounter
--- OUTSIDE RECORDS SUMMARY | 2025-01-21 10:22 | XMS_ITS | Encounter Summary ---
Author Organization [facility] Address [address] [place] [address] Care Team Providers Care Assignment Clerk Name Role Phone Betzy Duarte MD Primary Care Provider +1- [phone] Edouard Mccracken MD Primary Care Provider Unavailabl e Edouard Mccracken MD Unavailable Unavailable Edouard Mccracken MD Unavailable Unavailable Encounter Details Date Type Department Care Team Description 04/21/2020 Building Services Supervisor Report Medical Records [address] [place] [address] Poonam Rae, PA-C [address] [place] [address] Social History Tobacco Use Types Packs/Day Years [...] on filedocumented in this encounter Care Teams Assignment Clerk Relationship Specialty Start Date End Date Betzy Duarte MD PCP - General Internal Medicine 02/22/19 10/13/21 Edouard Mccracken MD PCP - General 10/14/21 11/14/21 Edouard Mccracken MD 12/11/15 10/13/21 Edouard Mccracken MD 11/15/21 documented as of this encounter
--- OUTSIDE RECORDS SUMMARY | 2025-01-21 10:22 | XMS_ITS | Encounter Summary ---
Author Organization [facility] Address [address] [place] [address] Care Team Providers Care Assembler Type Bar And Segment Name Role Phone Betzy Duarte MD Primary Care Provider +1- [phone] Edouard Mccracken MD Primary Care Provider Unavailabl e Edouard Mccracken MD Unavailable Unavailable Edouard Mccracken MD Unavailable Unavailable Reason for Visit * Reason Comments E-prescribe Rx Request Omeprazole Encounter Details Date Type Department Care Team Description 10/06/2019 Refill Internal Medicine - [address], [address] [place] [address] Betzy Duarte MD [address] [place] [phone] E-prescribe Rx Request (Omeprazole) Social History [...] N/A Patients current insurance carrier is: Payor: MEDICARE-[employer] / Plan: MEDICARE-[employer] / Product Type: MEDICARE [id number] documented in this encounter Plan of Treatment Not on file documented as of this encounter Visit Diagnoses Not on filedocumented in this encounter Care Teams Assembler Type Bar And Segment Relationship Specialty Start Date End Date Betzy Duarte MD PCP - General Internal Medicine 02/22/19 10/13/21 Edouard Mccracken MD PCP - General 10/14/21 11/14/21 Edouard Mccracken MD 12/11/15 10/13/21 Edouard Mccracken MD 11/15/21 documented as of this encounter
--- OUTSIDE RECORDS SUMMARY | 2025-01-21 10:22 | XMS_ITS | Encounter Summary ---
Author Organization [facility] Address [address] [place] [address] Care Team Providers Care Store Protection Specialist Name Role Phone Betzy Duarte MD Primary Care Provider +1- [phone] Edouard Mccracken MD Primary Care Provider Unavailabl e Edouard Mccracken MD Unavailable Unavailable Edouard Mccracken MD Unavailable Unavailable Encounter Details Date Type Department Care Team Description 07/24/2019 Breaker Up Machine Operator Report Medical Records [address] [place] [address] Kayla Steele PA-C Social History Tobacco Use [...] on filedocumented in this encounter Care Teams Store Protection Specialist Relationship Specialty Start Date End Date Betzy Duarte MD PCP - General Internal Medicine 02/22/19 10/13/21 Edouard Mccracken MD PCP - General 10/14/21 11/14/21 Edouard Mccracken MD 12/11/15 10/13/21 Edouard Mccracken MD 11/15/21 documented as of this encounter
--- OUTSIDE RECORDS SUMMARY | 2025-01-21 10:22 | XMS_ITS | Encounter Summary ---
Author Organization [facility] Address [address] [place] [address] Care Team Providers Care Diagram Clerk Name Role Phone Betzy Duarte MD Primary Care Provider +1- [phone] Edouard Mccracken MD Primary Care Provider Unavailabl e Edouard Mccracken MD Unavailable Unavailable Edouard Mccracken MD Unavailable Unavailable Reason for Visit * Reason Comments E-prescribe Rx Request Encounter Details Date Type Department Care Team Description 04/06/2020 Refill Internal Medicine - [address], [address] [place] [address] Betzy Duarte MD [address] [place] [phone] E-prescribe Rx Request Social History Tobacco Use Types Packs/Day Years Used Date Smoking Tobacco: Former Smokeless Tobacco: Never Comments:quit 2004 Alcohol Use Standard Drinks/Week Comments Yes 0 (1 standard drink = 0.6 oz pur e alcohol) occas Sex Assigned at Date Recorded Not on file documented as of this encounter Miscellaneous Notes * Telephone Encounter - Gayatri Jo M.A. - 04/06/2020 3:10 PM EDT Lab Results Component Value Date NA 140 02/17/2020 K 3.9 02/17/2020 CO2 27 02/17/2020 CL 106 02/17/2020 BUN 33 02/17/2020 CREAT 2.06 02/17/2020 GLU 103 02/17/2020 ALB 3.2 02/17/2020 SGOT 12 02/17/2020 SGPT 13 02/17/2020 TBILI 0.3 02/17/2020 ALKPHOS 69 02/17/2020 TP 8.5 02/17/2020 CA 8.4 02/17/2020 GFR 24 02/17/2020 * Telephone Encounter - Marietta Anton - 04/06/2020 2:33 PM EDT Patient would like script to [...] / Plan[place] / Product Type: MEDICARE [id number] documented in this encounter Plan of Treatment Not on file documented as of this encounter Visit Diagnoses Not on filedocumented in this encounter Care Teams Diagram Clerk Relationship Specialty Start Date End Date Betzy Duarte MD PCP - General Internal Medicine 02/22/19 10/13/21 Edouard Mccracken MD PCP - General 10/14/21 11/14/21 Edouard Mccracken MD 12/11/15 10/13/21 Edouard Mccracken MD 11/15/21 documented as of this encounter
--- OUTSIDE RECORDS SUMMARY | 2025-01-21 10:22 | XMS_ITS | Encounter Summary ---
Author Organization [facility] Address [address] [place] [address] Care Team Providers Care Director Child Development Center Name Role Phone Constanza Reyes MD Primary Care Provider Unava ilable Betzy Duarte MD Primary Care Provider +1- [phone] Edouard Mccracken MD Primary Care Provider Unavailabl e Edouard Mccracken MD Unavailable Unavailable Edouard Mccracken MD Unavailable Unavailable Encounter Details Date Type Department Care Team Description 08/29/2018 [facility] Medical Records [address] [place] [id number] Social History Tobacco Use Types Packs/Day Years [...] on filedocumented in this encounter Care Teams Director Child Development Center Relationship Specialty Start Date End Date Constanza Reyes MD PCP - General Internal Medicine 08/25/18 02/21/19 Betzy Duarte MD PCP - General Internal Medicine 02/22/19 10/13/21 Edouard Mccracken MD PCP - General 10/14/21 11/14/21 Edouard Mccracken MD 12/11/15 10/13/21 Edouard Mccracken MD 11/15/21 documented as of this encounter
--- OUTSIDE RECORDS SUMMARY | 2025-01-21 10:22 | XMS_ITS | Clinical Summary ---
Author Organization [facility] Address [address] [place] [phone] Phone Care Team Providers Care Shipfitter Helper Name Role Phone Esteban AnguianoaRocio Primary Care Provider +1- [phone] Allergies Active Allergy Reactions Criticality Noted Date [...] [facility] [place] [address] 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 [address] [address] Gabe Woods MD [address] [phone] Health Maintenance Due Date Last Done Comments [...] TIBC 262 250 - 450 ug/dL [facility] UIBC 229 118 - 369 ug/dL [facility] Iron 33 27 - 139 ug/dL [facility] Iron Saturation (TSat) 13(L) 15 - 55 % [facility] 10/29/2024 2:33 PM EST 10/29/2024 Gabe Woods MD LAB BLOOD ORDERABLES Final Re sult Performing Organization Address [facility] Co de Phone Number [facility] [address] [place] [address] * (ABNORMAL) Protein, Total, Random Urine w/Creatinine (Protein/Creat Ratio) (10/29/2024 2:33 PM EST) Creatinine, Ur 88.6 Not Estab. mg/dL [facility] Protein, Ur 258.0 Not Estab. mg/dL [facility] Comment: Results confirmed on dilution. Urine Protein/Creati nine Ratio 2,912(H) 0 - 200 mg/g creat [facility] 10/29/2024 2:33 PM EST 10/29/2024 Gabe Woods MD LAB URINE ORDERABLES Final Re sult Performing Organization Address [facility] Co de Phone Number [facility] [address] [place] [address] * Vitamin D 25 Hydroxy (10/29/2024 2:33 PM EST) Vitamin D, 25-OH, Total 43.8 30.0 - 100.0 ng/mL [facility] Comment: Vitamin D deficiency has been defined by the [place] of Medicine and an Endocrine Society practice guideline as a level of serum 25-OH vitamin D less than 20 ng/mL (1,2). The Endocrine Society went on to further define vitamin D insufficiency as a level between 21 and 29 ng/mL (2). 1. IOM ([place] of Medicine). 2010. Dietary reference ?? intakes for calcium and D. [place]: The ?? National Academies Press. 2. Dionna MORALES, Balta AMBRIZ, Ale OCAMPO, et al. ?? Evaluation, treatment, and prevention of vitamin D ?? deficiency: an Endocrine Society clinical practice ?? guideline. JCEM. 2010; 96(7):1911-30. 10/29/2024 2:33 PM EST 10/29/2024 us Gabe Woods MD LAB BLOOD ORDERABLES Final Re sult [facility] [address] [place] [address] * (ABNORMAL) CBC and Differential (10/29/2024 2:33 PM EST) WBC 13.7(H) 3.4 - 10.8 x10E3/uL [facility] RBC 3.84 3.77 - 5.28 x10E6/uL [facility] Hemoglobin 11.4 11.1 - 15.9 g/dL [facility] Hematocrit 36.0 34.0 - 46.6 % [facility] MCV 94 79 - 97 fL [facility] MCH 29.7 26.6 - 33.0 pg [facility] MCHC 31.7 31.5 - 35.7 g/dL [facility] RDW 13.3 11.7 - 15.4 % [facility] Platelets 353 150 - 450 x10E3/uL [facility] Neutrophils Relative 73 Not Estab. % [facility] Lymphocytes Relative 17 Not Estab. % [facility] Monocytes 7 Not Estab. % [facility] Eosinophils Relative 2 Not Estab. % [facility] Basophils Relative 0 Not Estab. % [facility] Neutrophils Absolute 10.2(H) 1.4 - 7.0 x10E3/uL [facility] Lymphocytes Absolute 2.3 0.7 - 3.1 x10E3/uL [facility] Monocytes Absolute 0.9 0.1 - 0.9 x10E3/uL [facility] Eosinophils Absolute 0.2 0.0 - 0.4 x10E3/uL [facility] Basophils Absolute 0.0 0.0 - 0.2 x10E3/uL [facility] Immature Granulocytes 1 Not Estab. % [facility] Immature Grans (Absolute) 0.1 0.0 - 0.1 x10E3/uL [facility] 10/29/2024 2:33 PM EST 10/29/2024 Gabe Woods MD LAB BLOOD ORDERABLES Final Re sult Performing Organization Address City/[facility]/ZIP Co de Phone Number [facility] [address] [place] [address] * Uric Acid (10/29/2024 2:33 PM EST) Uric Acid 7.3 3.1 - 7.9 mg/dL [facility] Comment:Therapeutic target f or gout patients: <6.0 10/29/2024 2:33 PM EST 10/29/2024 Gabe Woods MD LAB BLOOD ORDERABLES Final Re sult Performing Organization Address City/[facility]/ZIP Co de Phone Number [facility] [address] [place] [address] * Phosphorus (10/29/2024 2:33 PM EST) Phosphorus 4.1 3.0 - 4.3 mg/dL [facility] 10/29/2024 2:33 PM EST 10/29/2024 Gabe Woods MD LAB BLOOD ORDERABLES Final Re sult Performing Organization Address [facility]/ZIP Co de Phone Number [facility] [address] [place] [address] * PTH, Intact (10/29/2024 2:33 PM EST) Pathologist [facility] PTH 26 15 - 65 pg/mL [facility] 10/29/2024 2:33 PM EST 10/29/2024 Gabe Woods MD LAB BLOOD ORDERABLES Final Re sult Performing Organization Address [facility] de Phone Number [facility] [address] [place] [address] * (ABNORMAL) Magnesium (10/29/2024 2:33 PM EST) Pathologist [facility] Magnesium 1.5(L) 1.6 - 2.3 mg/dL [facility] 10/29/2024 2:33 PM EST 10/29/2024 Gabe Woods MD LAB BLOOD ORDERABLES Final Re sult Performing Organization Address [facility] de Phone Number [facility] [address] [place] [address] * (ABNORMAL) Ferritin (10/29/2024 2:33 PM EST) Ferritin 381(H) 15 - 150 ng/mL [facility] 10/29/2024 2:33 PM EST 10/29/2024 us Gabe Woods MD LAB BLOOD ORDERABLES Final Re sult [facility] [address] [place] [address] * (ABNORMAL) Comprehensive Metabolic Panel (10/29/2024 2:33 PM EST) Pathologist [facility] Glucose 90 70 - 99 mg/dL [facility] BUN 51(H) 8 - 27 mg/dL [facility] Creatinine 2.28(H) 0.57 - 1.00 mg/dL [facility] eGFR CKD-EPI CR 2020 22(L) >59 mL/min/1.7 3 [facility] BUN/Creatinine Ratio 22 12 - 28 [facility] Sodium 139 134 - 144 mmol/L [facility] Potassium 4.8 3.5 - 5.2 mmol/L [facility] Chloride 101 96 - 106 mmol/L [facility] Bicarbonate (CO2) 19(L) 20 - 29 mmol/L [facility] Calcium 9.8 8.7 - 10.3 mg/dL [facility] Total Protein 7.9 6.0 - 8.5 g/dL [facility] Albumin 4.3 3.8 - 4.8 g/dL [facility] Globulin 3.6 1.5 - 4.5 g/dL [facility] Total Bilirubin 0.2 0.0 - 1.2 mg/dL [facility] Alkaline Phosphatase 72 44 - 121 IU/L [facility] AST (SGOT) 13 0 - 40 IU/L [facility] ALT (SGPT) 10 0 - 32 IU/L [facility] 10/29/2024 2:33 PM EST 10/29/2024 us Gabe Woods MD LAB BLOOD ORDERABLES Final Re sult [facility] [address] [place] [address] from Last 3 Months Insurance MEDICARE [facility] MEDICARE [facility] Care Teams Shipfitter Helper Relationship Specialty Start Date End Date Rocio Lenz [address] [facility] PCP - General Internal Medicine 01/24/22
--- OUTSIDE RECORDS SUMMARY | 2025-01-21 10:22 | XMS_ITS | Encounter Summary ---
Author Organization [facility] Address [address] [place] [address] Care Team Providers Care Prosthetic Aides Teacher Name Role Phone Betzy Duarte MD Primary Care Provider [phone]- [phone] Edouard Mccracken MD Primary Care Provider Unavailabl e Edouard Mccracken MD Unavailable Unavailable Edouard Mccracken MD Unavailable Unavailable Reason for Visit * Reason Comments E-prescribe Rx Request Encounter Details Date Type Department Care Team Description 04/19/2021 Refill Internal Medicine - [address], [address] [place] [address] Betzy Duarte MD [address] [place] [phone] E-prescribe Rx Request Social History Tobacco [...] on filedocumented in this encounter Care Teams Prosthetic Aides Teacher Relationship Specialty Start Date End Date Betzy Duarte MD PCP - General Internal Medicine 02/22/19 10/13/21 Edouard Mccracken MD PCP - General 10/14/21 11/14/21 Edouard Mccracken MD 12/11/15 10/13/21 Edouard Mccracken MD 11/15/21 documented as of this encounter
--- OUTSIDE RECORDS SUMMARY | 2025-01-21 10:22 | XMS_ITS | Encounter Summary ---
Author Organization [employer] [facility] Address [address] [place] [address] Care Team Providers Care Delivery And Mail Sorter Name Role Phone Constanza Reyes MD Primary Care Provider Unava Betzy Rose MD Primary Care Provider [phone]- [phone] Edouard Mccracken MD Primary Care Provider Unavailabl e Edouard Mccracken MD Unavailable Unavailable Edouard Mccracken MD Unavailable Unavailable Reason for Visit * Reason Comments E-prescribe Rx Request Encounter Details Date Type Department Care Team Description 10/15/2018 Refill Internal Medicine - [address], [address] [place] [address] Constanza Reyes MD E-prescribe Rx Request Social [...] on filedocumented in this encounter Care Teams Delivery And Mail Sorter Relationship Specialty Start Date End Date Constanza Reyes MD PCP - General Internal Medicine 08/25/18 02/21/19 Betzy Duarte MD PCP - General Internal Medicine 02/22/19 10/13/21 Edouard Mccracken MD PCP - General 10/14/21 11/14/21 Edouard Mccracken MD 12/11/15 10/13/21 Edouard Mccracken MD 11/15/21 documented as of this encounter"
--- OUTSIDE RECORDS SUMMARY | 2025-01-21 10:22 | XMS_ITS | Clinical Summary ---
Author Organization [facility] Address [address] [place] [address] Care Team Providers Care Curing Supervisor Name Role Phone Constanza Reyes MD Primary [...] age to complete this topic Care Teams Curing Supervisor Relationship Specialty Start Date End Date Constanza Reyes MD PCP - General Internal Medicine 02/19/18
--- OUTSIDE RECORDS SUMMARY | 2025-01-21 10:22 | XMS_ITS | Encounter Summary ---
Author Organization [facility] Address [address] [place] [address] Care Team Providers Care Risk Engineer Name Role Phone Betzy Duarte MD Primary Care Provider [phone]- [phone] Edouard Mccracken MD Primary Care Provider Unavailabl e Edouard Mccracken MD Unavailable Unavailable Edouard Mccracken MD Unavailable Unavailable Encounter Details Date Type Department Care Team Description 05/25/2021 Orders Only Medical Records [address] [place] [address] Betzy Duarte MD [address] [place] [phone] Social History Tobacco Use Types Packs/Day Years [...] on file documented as of this encounter Procedures Procedure Name Priority Date/Time Associated Diagnosis Comments OUTSIDE MAMMO Routine 05/24/2021 documented in this encounter Results * OUTSIDE MAMMO (05/24/2021) Betzy Duarte MD RADIOLOGY documented in this encounter Visit Diagnoses Not on filedocumented in this encounter Care Teams Risk Engineer Relationship Specialty Start Date End Date Betzy Duarte MD PCP - General Internal Medicine 02/22/19 10/13/21 Edouard Mccracken MD PCP - General 10/14/21 11/14/21 Edouard Mccracken MD 12/11/15 10/13/21 Edouard Mccracken MD 11/15/21 documented as of this encounter
[2025-01-21 18:09] LABS: MANUAL DIFF FLAG NO
[2025-01-21 18:58] LABS: Basophils Absolute Auto 0.1 X10*3/uL (0.0-0.2); Basophils Percent Auto 0.4 % (0-2); Eosinophils Absolute Auto 0.3 X10*3/uL (0.0-0.4); Eosinophils Percent Auto 1.7 % (0-4); Hematocrit 38.2 % (37.0-47.0); Hemoglobin 12.1 g/dl (12.0-16.0); Imm Gran Abs Auto 0.12 X10*3/uL (0.00-0.03); Imm Gran Pct Auto 0.8 % (0.0-0.4); Mean Corpuscular HGB Conc 31.7 g/dl (31.0-35.0); Mean Corpuscular Hemoglobin 30.1 pg (27.0-33.0); Mean Platelet Volume 11.2 fL (9.4-12.3); Monocytes Absolute Auto 0.9 X10*3/uL (0.1-1.2); Monocytes Percent Auto 5.5 % (2-11); Neutrophils Absolute Auto 12.3 x10*3/uL (2.0-8.3); Neutrophils Percent Auto 78.6 % (45-73); Platelet Count 378 X10*3/uL (160-400); Red Blood Count 4.02 X10*6/uL (4.20-5.50); Red Cell Distribution Width 13.9 % (11.0-16.0); White Blood Count 15.6 X10*3/uL (4.8-10.8)
[2025-01-21 19:05] LABS: Rheumatoid Factor < 13.0 IU/mL (<15.0)
[2025-01-21 19:33] LABS: Erythrocyte Sedimentation Rate 91 MM/HR (0-20); Folate 4.4 ng/mL (> or = 4.0); Vitamin B12 331 pg/mL (200-900)
[2025-01-21 19:49] LABS: Alanine Aminotransferase 11 U/L (0-31); Albumin Level 4.3 g/dL (3.5-5.0); Alkaline Phosphatase 67 U/L (39-117); Anion Gap 17 (12-20); Aspartate Amino Transferase 21 U/L (5-31); Bilirubin Total 0.5 mg/dL (0.0-1.0); Blood Urea Nitrogen 62 mg/dL (9-16); Calcium 10.2 mg/dL (8.4-10.2); Carbon Dioxide 24 mmol/L (22-29); Chloride 103 mmol/L (96-108); Estimated Glomerular Filt Rate 16; Glucose Random 130 mg/dL (60-115); Iron 53 mcg/dL (30-160); Percent Iron Saturation 22 % (15-50); Potassium 4.5 mmol/L (3.3-5.1); Sodium 139 mmol/L (135-145); Total Iron Binding Capacity 244 mcg/dL (228-428); Total Protein 9.1 g/dL (6.5-8.0); Unsaturated Iron Binding 191 ug/dL
[2025-01-21 20:07] LABS: Ferritin 272 ng/mL (10-250)
[2025-01-22 22:33] LABS: Lyme Blot 1.29 index
[2025-01-24 12:16] LABS: Lyme Abs Screen POSITIVE
[2025-01-24 12:17] LABS: 18 KD (IgG) Band REACTIVE; 23 KD (IgG) Band NON-REACTIVE; 23 KD (IgM) Band NON-REACTIVE; 28 KD (IgG) Band NON-REACTIVE; 30 KD (IgG) Band NON-REACTIVE; 39 KD (IgM) Band NON-REACTIVE; 39KD (IgG) Band REACTIVE; 41 KD (IgM) Band NON-REACTIVE; 41KD (IgG) Band NON-REACTIVE; 45 KD (IgG) Band NON-REACTIVE; 58 KD (IgG) Band REACTIVE; 66 KD (IgG) Band NON-REACTIVE; 93 KD (IgG) Band REACTIVE; Lyme IgG Blot Interp NEGATIVE (NEGATIVE); Lyme IgM Blot Interp NEGATIVE (NEGATIVE)
[2025-01-24 12:29] LABS: Anti Nuclear Antibody Screen NEGATIVE (NEGATIVE)
[2025-01-25 01:48] LABS: Methylmalonic Acid 670 nmol/L (69-390)
[2025-01-26 15:23] LABS: Vitamin D 25-OH, D2 <4 ng/mL; Vitamin D 25-OH, D3 52 ng/mL; Vitamin D 25-OH, Total 52 ng/mL (30-100)
[2025-01-28 14:58] LABS: Vitamin B1 13 nmol/L (8-30)
[2025-01-29 06:07] LABS: Vitamin B6 79.1 ng/mL (2.1-21.7)
== END 2025-01-21 09:16 | disposition home or self-care (01) ==
LOC: HO.HKASLDS 09:15
PROVIDERS: Visit Provider Nurse Practitioner Family
DX: D64.9 Anemia, unspecified (principal); N18.4 Chronic kidney disease, stage 4 (severe); I10 Essential (primary) hypertension; E78.5 Hyperlipidemia, unspecified; G62.9 Polyneuropathy, unspecified; E11.9 Type 2 diabetes mellitus without complications
CPT/HCPCS: 36415; 80053; 82306; 82550; 82607; 82728; 82746; 83540; 83921; 84207; 84425; 84439; 84443; 85025; 85652; 86038; 86431; 86617; 86618

== ENCOUNTER 2025-01-30 11:09 | Outpatient (REF) | payer MEDICARE, OTHER, SELFPAY ==
--- OUTSIDE RECORDS SUMMARY | 2025-01-30 13:32 | XMS_ITS | Clinical Summary ---
Author Organization [facility] Address [address] [place] [address] Care Team Providers Care Supervisor Wet Pour Name Role Phone Constanza Reyes MD Primary [...] age to complete this topic Care Teams Supervisor Wet Pour Relationship Specialty Start Date End Date Constanza Reyes MD PCP - General Internal Medicine 02/19/18
--- OUTSIDE RECORDS SUMMARY | 2025-01-30 13:32 | XMS_ITS | Data Portability ---
Author Organization [facility] [address] Address [address] [place] [address] Assessment Encounter Date Assessment Date Assessment LastModified by Organization Details LastModified Time 12/08/2023 12/08/2023 Patient was evaluated by the Physician Motorcycle Police Officer using AV technology. This type of exam [...] cyclobenzap rine 10 mg tablet 2023 024 [facility] [address], [address] [place] [address], [address], 14:52:24 Patient TargetsNo targets recorded. Patient InstructionsNo instructions recorded. Reason for Referral None Reported. Problems Name Problem SNOMED Code Status Onset Date Resolution Date Notes Provider Name and Address Organization Details Recorded Time Hyperlipidemia 49864376 Active 2023 LA Braga [address] [place], [address], [place] - [facility] 4 14:48:05 Hypertensive disorder 46079371 Active 2023 [place] Braga [address] [place], [address], [place] - [facility] 4 14:48:11 Gastroesophage al reflux disease 384640253 Active 2023 [place], [address], [place] - [facility] 4 14:48:16 Gout 93568597 Active 2023 LA Braga Ignacio Wiley , [place], [address], [place] - [facility] 4 14:48:37 Embolism 069995158 Active 2023 LA Braga Ignacio Wiley , [place], [address], [place] - [facility] 4 14:48:58 Problem Notes None recorded. Procedures Surgical History Date Name Laterality Status Provider Name and Address Organization Details Recorded Time 4 Virtual Visit completed LA Braga Ignacio Wiley, [place], [address], [facility] - [facility] 12/08/2023 14:56:19 Imaging Results None recorded. Procedure Notes None recorded. Medical Equipment None Reported. Allergies Allergen ID Allergen Name Allergen Category Reaction Reaction Severity Criticality Documentation Date Start Date Code Code System Note Provider Name and Address Organization Details Recorded Time 107248 Product containin g penicilli n (product) medicatio n Not available Not available Not available 12/08/2023 70243 8001 SNOMED [place] Braga [place], [address], [place] - [facility] 4 14:46:53 148259 Non-stero idal anti-infl ammatory agent (product) medicatio n Not available Not available Not available 12/08/2023 97931 005 [place], [address], [place] - [facility] 4 14:46:59 [...] mcg/0.3 mL dose 1 [place], [address], [place] - [facility] 12/08/2023 14:46:35 COVID-19, mRNA, LNP-S, PF, 30 mcg/0.3 mL dose 1 completed [facility] [place], [address], [place] - [facility] 12/08/2023 14:46:35 COVID-19, mRNA, LNP-S, PF, 30 mcg/0.3 mL dose 1 completed [facility] Br[facility] [place], [address], [place] - [facility] 12/08/2023 14:46:35 COVID-19, mRNA, LNP-S, PF, 30 mcg/0.3 mL dose, vika-sucrose 2 completed [place] Braga [place], [address], [place] - [facility] 12/08/2023 14:46:35 COVID-19, mRNA, LNP-S, bivalent, PF, 30 mcg/0.3 mL dose 3 completed LA Braga [address], [place], [address], [place] - [facility] 12/08/2023 14:46:35 pneumococcal polysaccharide PPV23 3 completed LA Braga [address], [place], [address], [place] - [facility] 12/08/2023 14:46:35 pneumococcal polysaccharide PPV23 7 completed LA Braga [address], [place], [address], [place] - [facility] 12/08/2023 14:46:35 tetanus toxoid, unspecified formulation 6 completed LA Braga [address], [place], [address], [place] - [facility] 12/08/2023 14:46:35 Tdap 6 completed LA Braga [address], [place], [address], [place] - [facility] 12/08/2023 14:46:35 Pneumococcal conjugate PCV 13 6 completed LA Braga [address], [place], [address], [place] - [facility] 12/08/2023 14:46:35 Past Encounters Encounter ID Performer Location Encounter Start Date Encounter Closed Date Diagnosis/Indication Diagnosis SNOMED-CT Code Diagnosis ICD10 Code Diagnosis Note [id number] LA Braga [address] [place] [address] 12/08/2023 14:35:22 12/08/2023 14:57:03 Muscle spasm of cervical muscle of neck 9459310690 04 M62.838 Take muscle relaxer as directed. [...] ID Guarantor Name 12/08/2023 1 MEDICARE [place]: [employer] Cielito Coffey [id number] Cielito Coffey 12/08/2023 2 [facility] [id number] Cielito Coffey [id number] Cielito Coffey Notes Date Note Type Note [...] radiculopathy LA Braga [address] [place], [address], [place] - [facility] 12/08/2023 14:56:36 OBGyn Episode No OBEpisode recorded.
--- OUTSIDE RECORDS SUMMARY | 2025-01-30 13:32 | XMS_ITS | Encounter Summary ---
Author Organization [facility] Address [address] [place] [address] Care Team Providers Care Fitness Assistant Name Role Phone Rocio Lenz MD Primary Care Provider Encounter Details Date Type Department Care Team (Late st Contact Info) Description 01/24/2025 Lab Requisition [facility] - Main Lab [address] [facility] [place] [phone] [place], [place] [address] [address] Dysuria Social History Tobacco Use Types Packs/Day Years [...] Procedure Name Priority Date/Time Associated Diagnosis Comments BACTERIAL IDENTIFICATION AND SUSCEPTIBILITY, AEROBIC Routine 01/23/2025 1:28 PM EDT Dysuria documented in this encounter Results * (ABNORMAL) Bacterial identification and susceptibility, aerobic (01/23/2025 1:28 PM EDT) Culture, Bacterial ID and Sensitivity Serratia marcescens(A ) MERRY 01/25/2025 10:53 AM EDT [facility] Comment: This is an edited result. Previous organism was Gram negative bacilli on 01/24/2025 at 1056 EDT. Other Urine specimen from urethra / Unknown 01/23/2025 1:28 PM EDT 01/24/2025 10:23 AM EDT Narrative Organism Antibiotic Method Susceptibility Serratia marcescens Amoxicillin/Clavulanate MERRY >=32 ug/ml: Resistant Serratia marcescens Cefoxitin MERRY 32 ug/ml: Resistant Serratia marcescens Ceftazidime MERRY <=0.5 ug/ml: Susceptible Serratia marcescens Ceftriaxone MERRY 1 ug/ml: Susceptible Serratia marcescens Cefepime MERRY <=0.12 ug/ml: Susceptible Serratia marcescens Meropenem MERRY <=0.25 ug/ml: Susceptible Serratia marcescens Amikacin MERRY <=1 ug/ml: Susceptible Serratia marcescens Gentamicin MERRY <=1 ug/ml: Susceptible Serratia marcescens Ciprofloxacin MERRY 0.12 ug/ml: Susceptible Serratia marcescens Levofloxacin MERRY <=0.12 ug/ml: Susceptible Serratia marcescens Nitrofurantoin MERRY 256 ug/ml: Resistant Serratia marcescens Trimethoprim/Sulfamethoxazole MERRY <=20 ug/ml: Susceptible us Kayla [facility] MICROBIOLOGY - GENERAL ORDER ANGEL Final Result [facility] [address] [place] [address], documented in this encounter Visit Diagnoses Diagnosis Dysuria documented in this encounter Care Teams Fitness Assistant Relationship Specialty Start Date End Date Rocio Lenz MD [address] [place], [place] PCP - General Internal Medicine 01/24/25 documented as of this encounter
--- OUTSIDE RECORDS SUMMARY | 2025-01-30 13:32 | XMS_ITS | Clinical Summary ---
Author Organization [facility] Address [address] [place] [phone] Phone Care Team Providers Care Affirmative Action Officer Name Role Phone Esteban AnguianoaRocio Primary Care Provider +1- [phone] Allergies Active Allergy Reactions Criticality Noted Date [...] [facility] [place] [address] [place] [address] Gabe Woods MD from Last 3 Months Immunizations Immunization Administration Dates Next Due Pfizer SARS-COV-2 08/04/2021,12/04/2020,11/13/19 [...] Upcoming Encounters Date Type Department Care Team (Latest Contact Info) Description 02/27/2025 9:20 AM EDT Office Visit [facility] [address] [phone] Gabe Woods MD [facility] [address] [phone] 02/28/2025 Orders Only [facility] [address] [phone] Gabe Woods MD [facility] [address] [phone] Chronic kidney disease stage 4 (HCC); Factor V Leiden mutation (HCC); Gout, not otherwise specified; Hypertensive disorder; Iron deficiency anemia, not otherwise specified; Hyperparathyroidism due to renal insufficiency (HCC); 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); Deep venous thrombosis <Unspecified side> (HCC) Health Maintenance Due Date Last Done Comments Breast Cancer Screening 1950 Colorectal Cancer Screening: Annual FOBT 2001 Colorectal Cancer Screening: Colonoscopy 2001 Colorectal Cancer Screening: Sigmoidoscopy 2001 Influenza Vaccine (Season Ended) 2025 Pneumococcal Vaccine: 50+ Years Completed 01/31/2023, 09/19/2017, 07/07/2016 Hepatitis B Vaccine Aged Out No longe r eligible based on patient's age to complete this topic Insurance Medicare [facility] Medicare [facility] Care Teams Affirmative Action Officer Relationship Specialty Start Date End Date Rocio Lenz [address] [facility] PCP - General Internal Medicine 01/24/22
--- OUTSIDE RECORDS SUMMARY | 2025-01-30 13:32 | XMS_ITS | Clinical Summary ---
Author Organization [address] [facility] Address [address] [place] [address] Phone Care Team Providers Care Hands And Dial Inspector Name Role Phone Pacheco Lenz MD Primary Care Provider Encounters Date Type Department Care Team Description 01/24/2025 Lab Requisition [facility] - Main Lab [address] [facility] [address] Kayla Steele PA Dysuria from Last 3 Months Immunizations Name Administration Dates Next Due Pfizer SARS-CoV-2 COVID-19, mRNA, LNP-S, preservative free 08/04/2021,12/04/2020,11/13/2020 Surgical History Surgery Date Site/Laterality Comments APPENDECTOMY PROCEDURE: HISTORICAL APPENDECTOMY OTHER SURGICAL HISTORY PROCEDURE: HISTORICAL COLOSTOMY OTHER SURGICAL HISTORY PROCEDURE: AK REVJ COLOSTOMY SMPL RLS SUPFC SCAR SPX; COMMENT: reversal OTHER SURGICAL HISTORY PROCEDURE: VENA CAVA FILTER Medical History Medical History Date Comments Peripheral polyneuropathy 12/19/2017 DX:Per ipheral polyneuropathy Acquired lactose intolerance 08/26/2015 DX: Acquired lactose intolerance Anemia due to chronic illness 02/20/2018 DX :Anemia due to chronic illness Asthma 09/19/2017 DX:Asthma Carpal tunnel syndrome 09/02/2014 DX:Carpal tunnel syndrome Coagulopathy (CMS/HCC V24) 08/14/2017 DX:Co agulopathy (HCC) Depression 07/09/2018 DX:Depression Factor V Leiden (CMS/HCC V24) 10/01/2018 DX :Factor V Leiden (HCC); COMMENT: IVC filter Fibromyalgia 09/19/2017 DX:Fibromyalgia GERD (gastroesophageal reflux disease) DX:GERD (gastroesophageal reflux disease) Hearing impairment 02/20/2018 DX:Hearing im pairment History of cervical cancer 12/19/2017 DX:Hi story of cervical cancer History of DVT (deep vein thrombosis) 10/01/2018 DX:History of DVT (deep vein thrombosis); COMMENT: 2011-chronic anticoagulation d/t Factor V Leiden; IVC filter placed. Hyperparathyroidism due to v itamin D deficiency ([facility] V24) 10/01/2018 DX:Hyperparathyroidism due t o vitamin D deficiency (HCC) Hypertension 05/02/2017 DX:Hypertension Insomnia 10/11/2016 DX:Insomnia Kidney disease, chronic, sta ge IV (severe, EGFR 15-29 ml/min) (CMS/[facility] V24, CMS/[facility] V28) 05/02/2017 DX:Kidney disease, chronic, stage IV (severe, EGFR 15-29 ml/min) ([facility]) Mild cognitive impairment 09/19/2017 DX:Mil d cognitive impairment Type 2 diabetes mellitus wit h neurological manifestations ([facility] V24, [facility] V28) 10/01/2018 DX: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) Type 2 diabetes mellitus wit h renal complication ([facility] V24, [facility] V28) 12/25/2017 DX:Type 2 diab etes mellitus with renal complication (HCC) Varicose veins 07/07/2016 DX:Varicose vein s Vitamin D deficiency 07/07/2016 DX:Vitamin D deficiency Family History Medical History Relation Name Comments Dementia Father hemorrhage Stomach cancer Maternal Grandmother Breast cancer Mother [place] Breast cancer Other niece Relation Name Status [...] Vaccines (1 of 2) 2002 RSV Immunization Adult Patients (1 - Risk 60-74 years 1-dose series) 2012 Cholesterol Screening (Lipid Panel) 10/01/2022 Colorectal Cancer Screening: Colonoscopy 10/01/2022 Depression Screening 10/01/2022 Diabetes: Annual Urine Albumin-Creatinine Ratio (uACR) 10/01/2022 Diabetes: Blood Sugar Control Test (HGBA1C) 10/01/2022 Falls Risk Assessment 10/01/2022 Hepatitis C Screening 10/01/2022 Hypertension/CHF/CAD Annual BMP Blood Test 10/01/2022 Social Influencers of Health Screening 10/01/2022 Medicare Annual Wellness Visit 02/01/2024 01/31/2023 COVID-19 Vaccine ( season) 2024 08/04/2021, 12/04/2020, [...] age to complete this topic Meningococcal B Vaccine Aged Out No l onger eligible based on patient's age to complete this topic RSV Immunization Patients Under 20 months Aged Out No longer eligible based on patient's age to complete this topic Varicella Vaccines Aged Out No longer eligible based on patient's age to complete this topic Procedures Procedure Name Priority Date/Time Associated Diagnosis Comments BACTERIAL IDENTIFICATION AND SUSCEPTIBILITY, AEROBIC Routine 01/23/2025 1:[address] [facility] SCREENING DIGITAL Routine 05/29/2023 3:47 PM EDT Encounter for screening mammogram for malignant neoplasm of breast [facility] DEXA AXIAL SKELETON Routine 04/05/2019 3:09 PM EDT Other specified disorders of bone density and structure, unspecified site from Last 3 Months or Most Recently Relevant to Health Maintenance Results * (ABNORMAL) Bacterial identification and susceptibility, aerobic (01/23/2025 1:28 PM EDT) Culture, Bacterial ID and Sensitivity Serratia marcescens(A ) MERRY 01/25/2025 10:53 AM EDT [facility] Comment: This is an edited result. [...] MICROBIOLOGY - GENERAL ORDER ANGEL Final Result [facility] LAB [address] [place] [address], * TOI SCREENING DIGITAL (05/29/2023 3:47 PM EDT) Anatomical Region Laterality Modality Mammography 05/29/2023 1:37 PM EDT Narrative 05/29/2023 3:47 PM EDT [facility] Diagnostic Imaging Department [address] [place] [address] Patient: ??MAGNOLIA WILLSON ?/Age/Sex: 1950 72 - F Unit#: ??[id number] ? Location/Status: ??SPDIMAM/REG CLI ? Mnemonic/Ordering Site: ??DIGSC/SPMAM Ordering Physician: ??PACHECO LENZ MD Toi Screening Digital - 05/29/23 - 1359 Report Status:Signed EXAM: [facility] Screening Digital EXAM DATE AND TIME: 05/29/2023 2:00 PM HISTORY: ??Screening. Family history of breast carcinoma including mother at age 75 and maternal aunt. COMPARISON: ??05/27/22, 05/24/21, 05/20/20 TECHNIQUE: Bilateral digital breast tomosynthesis was performed in the CC and MLO projections. Computer aided detection with New Body MD 3D 3.1 was employed. TISSUE DENSITY: a. [...] Procedure Note Aby Sherman MD - 11/28/2023 [facility] Diagnostic Imaging Department [address] [place] [address] Patient: MAGNOLIA WILLSON /Age/Sex: 1950 - 72 - F Unit#: [id number] Location/Status: [facility]/REG CLI Mnemonic/Ordering Site: DIGRI/[facility] Ordering Physician: PACHECO LENZ MD [facility] Screening Digital - 05/29/23 - 1359 Report Status:Signed EXAM: [facility] Screening Digital EXAM DATE AND TIME: 05/29/2023 2:00 PM HISTORY: Screening. Family history of breast carcinoma including motherat age 75 and maternal aunt. COMPARISON: 05/27/22, 05/24/21, 05/20/20 TECHNIQUE: Bilateral digital breast tomosynthesis was performed in the CCand MLO projections. Computer aided detection with New Body MD 3D 3.1was employed. TISSUE DENSITY: a. The [...] MD IMG BI PROCEDURES Final Result * [facility] DEXA AXIAL SKELETON (04/05/2019 3:09 PM EDT) Anatomical Region Laterality Modality Mammography 04/05/2019 1:53 PM EDT Narrative 04/05/2019 3:09 PM EDT [facility] Diagnostic Imaging Department [address] [place] [address] Patient: ??MAGNOLIA WILLSON ?/Age/Sex: 1950 - 68 - F Unit#: ??[id number] ? Location/Status: ??SPDIMAM/REG CLI ? Mnemonic/Ordering Site: ??MAMDEXAAX/SPMAM Ordering Physician: ??GABE Woods MD Toi Dexa Axial Skeleton - 04/05/191450 HISTORY: ??The patient is a 68-year-old postmenopausal [...] probability of hip fracture of 0.3%. Code 65750 Dictating Physician: ??RENETTA CASTORENA MD Electronically Signed by: ??RENETTA CASTORENA MD Dic Date/Time: ??04/05/19 1506 Sign date/Time: ??04/05/19 1509 Procedure Note Renetta Castorena - 10/11/2022 [facility] Diagnostic Imaging Department [address] [place] [address] Patient: ANAMIKAMAGNOLIA /Age/Sex: 1950 - 68 - F Unit#: [id number] Location/Status: [facility] Mnemonic/Ordering Site: [facility] Ordering Physician: GABE Woods MD Toi Dexa Axial Skeleton - 04/05/192 HISTORY: The patient is a 68-year-old postmenopausal [...] density of the femurs bilaterally is 1.038 gm/ky0ghrga is 103% of that of young normals [...] probability of hip fracture of 0.3%. 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
[2025-01-30 17:34] LABS: MANUAL DIFF FLAG NO
[2025-01-30 17:39] LABS: Appearance Urine Clear; Color Urine Yellow; Glucose Urine UA Negative (Negative); Leukocyte Esterase Urine Trace (Negative); Nitrite Urine Negative (Negative); PH 6.5 (5.0-9.0); UMIC TRIGGER UACC YES; Urine Blood Negative (Negative); Urine Ketones Negative (Negative); Urine Protein 100 (2+) mg/dL (Neg-Trace)
[2025-01-30 17:42] LABS: Bacteria Urine None Seen (None Seen); RBC Urine 0-2 /HPF (0-2); UACC Culture Trigger YES
[2025-01-30 17:48] LABS: Basophils Absolute Auto 0.1 X10*3/uL (0.0-0.2); Basophils Percent Auto 0.4 % (0-2); Eosinophils Absolute Auto 0.3 X10*3/uL (0.0-0.4); Eosinophils Percent Auto 2.2 % (0-4); Hematocrit 35.8 % (37.0-47.0); Hemoglobin 10.9 g/dl (12.0-16.0); Imm Gran Abs Auto 0.14 X10*3/uL (0.00-0.03); Lymphocytes Absolute Auto 2.3 X10*3/uL (1.2-4.9); Lymphocytes Percent Auto 16.2 % (20-40); Mean Corpuscular HGB Conc 30.4 g/dl (31.0-35.0); Mean Corpuscular Hemoglobin 29.7 pg (27.0-33.0); Mean Corpuscular Volume 97.5 fL (80.0-98.0); Mean Platelet Volume 10.6 fL (9.4-12.3); Monocytes Percent Auto 7.1 % (2-11); Neutrophils Absolute Auto 10.2 x10*3/uL (2.0-8.3); Neutrophils Percent Auto 73.1 % (45-73); Platelet Count 393 X10*3/uL (160-400); Red Blood Count 3.67 X10*6/uL (4.20-5.50); Red Cell Distribution Width 14.1 % (11.0-16.0); White Blood Count 13.9 X10*3/uL (4.8-10.8)
[2025-01-30 18:06] LABS: Alanine Aminotransferase 7 U/L (0-31); Alkaline Phosphatase 63 U/L (39-117); Anion Gap 16 (12-20); Aspartate Amino Transferase 24 U/L (5-31); Bilirubin Total 0.3 mg/dL (0.0-1.0); Blood Urea Nitrogen 43 mg/dL (9-16); Calcium 9.3 mg/dL (8.4-10.2); Carbon Dioxide 27 mmol/L (22-29); Chloride 103 mmol/L (96-108); Estimated Glomerular Filt Rate 18; Glucose Random 137 mg/dL (60-115); Potassium 4.5 mmol/L (3.3-5.1); Sodium 141 mmol/L (135-145); Total Protein 8.6 g/dL (6.5-8.0)
[2025-01-30 18:43] LABS: Folate 5.4 ng/mL (> or = 4.0)
[2025-01-30 18:50] LABS: Erythrocyte Sedimentation Rate 104 MM/HR (0-20)
[2025-01-31 09:09] LABS: CRP High Sensitivity >20.0 mg/L
== END 2025-01-30 11:10 | disposition home or self-care (01) ==
LOC: HO.HKASLDS 11:09
PROVIDERS: Visit Provider Nurse Practitioner Family
DX: D72.829 Elevated white blood cell count, unspecified (principal); S37.009A Unspecified injury of unspecified kidney, initial encounter; E11.9 Type 2 diabetes mellitus without complications; G62.9 Polyneuropathy, unspecified; E78.5 Hyperlipidemia, unspecified; I10 Essential (primary) hypertension; N18.4 Chronic kidney disease, stage 4 (severe); D64.9 Anemia, unspecified; R41.89 Other symptoms and signs involving cognitive functions and awareness
CPT/HCPCS: 36415; 80053; 81001; 82746; 85025; 85652; 86141; 87086